=== PATIENT | female | born 1940 | race African-American/Black ===

== ENCOUNTER 2017-01-28 16:42 | Observation (INO) | payer OTHER ==
[2017-01-28] MEDS ORDERED: SODIUM CHLORIDE 500 ML IV STA (17:08)
--- NOTE | 2017-01-28 17:26 | PDOC ---
History of Present Illness <Ebenezer May - Last Filed: 01/28/17 17:21> <Orly Penny - Last Filed: 01/28/17 18:24> <Ame Rico - Last Filed: 01/28/17 19:46> <Mady Wiseman - Last Filed: 01/28/17 19:52> - General Chief Complaint: Syncope/Near Syncope Stated Complaint: Syncope/Near Syncope Time Seen by Provider: 01/28/17 16:52 - History of Present Illness Initial Comments: 01/28/17 18:24 Patient is a 76 year old female with significant medical hx of IDDM, HTN, HLD, and GERD who is presenting to the ED for syncope from today. The patient was on the bus when she lost consciousness and woke up to paramedics evaluating her. Patient states that she was still on the bus when she came back into consciousness. The patient reports she felt fine this morning and denies any recent illness, chest pain, shortness of breath, lightheadedness, neck pain, back pain, headache, vision changes, or dizziness. The patient endorses three other similar episodes within the past six years. Her last syncopal episode occurred two months ago while walking in [employer]. She states that she was walking and the next thing she knew, the ambulance was there. Denies any fever, chills, nausea, vomiting, diarrhea, dysuria, melena/bpr or any other complaints. PMD: Jaime Lopez MD Vice President Financial: Beny Baptiste MD (Olry Penny) Past History - Past Medical History Diabetes: Yes (IDDM insulin pump) GI Disorders: Yes (GERD) HTN: Yes Hypercholesterolemia: Yes Suicide Attempt (Hx): No - Psycho/Social/Smoking Cessation Hx Anxiety: No Suicidal Ideation: No Smoking Status: No Smoking History: Former smoker Have you smoked in the past 12 months: No Number of Cigarettes Smoked Daily: 0 Information on smoking cessation initiated: No Hx Alcohol Use: No Drug/Substance Use Hx: No Substance Use Type: None <LaloEbenezer - Last Filed: 01/28/17 17:21> <Orly Penny - Last Filed: 01/28/17 18:24> <Ame Rico - Last Filed: 01/28/17 19:46> <Mady Wiseman - Last Filed: 01/28/17 19:52> - Past Medical History Allergies/Adverse Reactions: Allergies Allergy/AdvReac Type Severity Reaction Status Date / Time No Known Allergies Allergy Verified 01/28/17 16:56 Home Medications: Ambulatory Orders Esomeprazole Mag Trihydrate [Nexium] 40 mg PO DAILY 05/02/12 Rosuvastatin Calcium [Crestor] 5 mg PO DAILY 05/02/12 Aspirin [ASA -] 81 mg PO DAILY #0 tab.chew 09/29/12 Insulin Pump Cartridge [Cartridge Stamped] 1 each SQ ASDIR 10/03/14 Valsartan/Hydrochlorothiazide [Valsartan-Hctz 160-12.5 mg Tab] 1 each PO DAILY 01/28/17 Cardiac Specific PMH - Complaint Specific PMHX Angina: No Cardiac Arrhythmia: No GERD: No Peripheral Vascular Disease: No <Ebenezer Mya - Last Filed: 01/28/17 17:21> Review of Systems <Ebenezer May - Last Filed: 01/28/17 17:21> <Orly Penny - Last Filed: 01/28/17 18:24> <Ame Rico - Last Filed: 01/28/17 19:46> <Mady Wiseman - Last Filed: 01/28/17 19:52> - Review of Systems Comments:: 01/28/17 18:24 "CONSTITUTIONAL: No reported: Fever, Chills, Diaphoresis, Generalized Weakness, Malaise, Loss of Appetite HEENT: No reported: Rhinorrhea, Nasal Congestion, Throat Pain, Throat Swelling, Difficulty Swallowing, Mouth Swelling, Ear Pain, Eye Pain, Visual Changes CARDIOVASCULAR: Reported: Syncope No reported: Chest Pain, Palpitations, Irregular Heart Rate, Lightheadedness, Peripheral Edema RESPIRATORY: No reported: Cough, Shortness of Breath, SOB with Exertion, Orthopnea, Wheezing , Stridor, Hemoptysis GASTROINTESTINAL: No reported: Abdominal pain, Abdominal Distension, Nausea, Vomiting, Diarrhea, Constipation, Melena, Hematochezia GENITOURINARY: No reported: Dysuria, Frequency, Urgency, Hesitancy, Flank Pain, Genital Pain MUSCULOSKELETAL: No reported: Myalgia, Arthralgia, Joint Swelling, Back pain, Neck Pain SKIN: No reported: Rash, Itching, Pallor HEMEATOLOGIC/IMMUNOLOGIC: No reported: Easy Bleeding, Easy Bruising, Lymphadenopathy, Frequent infections ENDOCRINE: No reported: Unexplained Weight Gain, Unexplained Weight Loss, Heat Intolerance , Cold Intolerance NEUROLOGIC: No reported: Headache, Focal Weakness, Paresthesias, Vertigo, Lightheadedness, Unsteady Gait, Seizure, Mental Status Changes, Incontinence PSYCHIATRIC: No reported: Anxiety, Depression (ZohaibOrly) *Physical Exam <Ebenezer May - Last Filed: 01/28/17 17:21> <Orly Penny - Last Filed: 01/28/17 18:24> <Ame Rico - Last Filed: 01/28/17 19:46> <Mady Wiseman - Last Filed: 01/28/17 19:52> - Vital Signs Last Vital Signs Temp Pulse Resp BP Pulse Ox 98.5 F 80 17 120/75 100 01/28/17 19:37 01/28/17 19:37 01/28/17 19:37 01/28/17 19:37 01/28/17 19:37 - Physical Exam Comments: 01/28/17 18:33 GENERAL: The patient is awake, alert, and fully oriented, Nontoxic - in no acute distress. HEAD: Normocephalic, atraumatic. EYES: extraocular movements intact, sclera anicteric, conjunctiva clear. ENT: Normal voice, Moist mucous membranes. NECK: Normal range of motion, supple LUNGS: Breath sounds equal, clear to auscultation bilaterally. No wheezes, no rhonchi, no rales. HEART: Regular rate and rhythm, without murmur, rub or gallop. ABDOMEN: RLQ insulin pump. Soft, nontender, normoactive bowel sounds. No guarding, no rebound.No CVA tenderness EXTREMITIES: Normal range of motion, no edema. No clubbing or cyanosis. No cords , erythema, or tenderness. NEUROLOGICAL: No facial assymetry, Normal speech, PSYCH: Normal mood, normal affect. SKIN: Warm, Dry, normal turgor. (Orly Penny) Heart Score/ECG Review <Ebenezer May - Last Filed: 01/28/17 17:21> <Orly Penny - Last Filed: 01/28/17 18:24> <Ame Rico - Last Filed: 01/28/17 19:46> <Mady Wiseman - Last Filed: 01/28/17 19:52> - ECG Impressions Comment:: 01/28/17 17:26 Twelve-lead EKG was performed and reviewed by me. There is normal sinus rhythm with a normal rate. Rate of 88 The axis is normal. The intervals are normal. There is normal R wave progression twi in v3-v5 no significant changes compare with ekg in 2015 (Ebenezer May) ED Treatment Course <Ebenezer May - Last Filed: 01/28/17 17:21> <ZohaibOrly - Last Filed: 01/28/17 18:24> - LABORATORY CBC & Chemistry Diagram: 01/28/17 18:03 01/28/17 18:03 <Ame Rico - Last Filed: 01/28/17 19:46> - LABORATORY CBC & Chemistry Diagram: 01/28/17 18:03 01/28/17 18:03 <Mady Wiseman - Last Filed: 01/28/17 19:52> - ADDITIONAL ORDERS Additional order review: Laboratory Results 01/28/17 01/28/17 18:03 18:03 WBC 6.1 RBC 4.67 Hgb 13.1 Hct 40.0 MCV 85.7 MCHC 32.7 RDW 15.6 D Plt Count 200 D MPV 9.4 D Neutrophils % 64.1 Lymphocytes % 26.7 D Monocytes % 6.2 Eosinophils % 2.5 Basophils % 0.5 Sodium 145 Potassium 3.9 Chloride 106 Carbon Dioxide 29 Anion Gap 10 BUN 25 H Creatinine 1.4 H Creat Clearance w eGFR 36.46 Random Glucose 95 D Calcium 8.9 Total Bilirubin 0.4 AST 74 H D ALT 65 D Alkaline Phosphatase 99 Creatine Kinase 182 Troponin I < 0.02 Total Protein 7.1 Albumin 3.4 01/28/17 18:03 RBC 4.67 MCV 85.7 MCHC 32.7 RDW 15.6 D MPV 9.4 D Neutrophils % 64.1 Lymphocytes % 26.7 D Monocytes % 6.2 Eosinophils % 2.5 Basophils % 0.5 - RADIOLOGY Radiology Studies Ordered: Category Date Time Status HEAD CT WITHOUT CONTRAST [CT] Stat CT Scan 01/28/17 19:44 Ordered Radiograph Interpretation: 01/28/17 18:34 Chest X-Ray Impression: No significant interval change or acute lung disease is present. Reported By: Bandar Saez MD (Orly Penny) - Medications Given in the ED: ED Medications Discontinued Medications Generic Name Dose Route Start Last Admin Trade Name Jeremias PRN Reason Stop Dose Admin Sodium Chloride 500 mls @ 500 mls/hr 01/28/17 17:08 01/28/17 17:18 Normal Saline - IV 01/28/17 18:07 500 mls/hr ASDIR STA Administration Medical Decision Making <Ebenezer May - Last Filed: 01/28/17 17:21> <Orly Penny - Last Filed: 01/28/17 18:24> <Ame Rico - Last Filed: 01/28/17 19:46> <Mady Wiseman - Last Filed: 01/28/17 19:52> - Medical Decision Making 01/28/17 17:21 76y F hx of HTN, DM, GERD, and hyperlipidemia, syncope presents with complaint of syncope. The pt states she was on the bus, and does not remember anything until EMS got there. Pt has no complaints otherwise including cp, sob, dizziness , n/v, palpitations, abd pain, neck pain, back pain. pts exam is unremarkable besdie her insulin pump in Q. Per EMS the pt was hypotensive upon their arival, bgm was normal, she received fluids with improvement. Differential for the patient's syncope includes but not limited to vasovagal episode, pulmonary embolism, subarachnoid hemorrhage, arrythmia, AAA/ dissection. Based on the patient's lack of chest pain, shortness of breath, doubt pulmonary embolism. Lack of severe headache doubt subarachnoid hemorrhage. Lack of abdominal pain and pulsatile abdominal mass/neurologic symptoms doubt AAA/dissection. will check cbc to r/o anemia cmp to r/o electrolyte imbalance trop to r/o acs ekg to r/o arrhythmia cxr to r/o acute pulmonary disease pt on monitor technician for evaluation of arrytmia (Ebenezer May) 01/28/17 19:47 Dr. Cunningham was paged and notified via phone service. (Ame Rico) 01/28/17 19:49 Pt comes with syncopal episode on a bus today. I received signout. Pt's PMD is John. She will be admitted to Dr. Cunningham. He is aware of the admission to med/surg. He agrees with me that pt ought to have a CT head, however, patient is refusing a head CT at this time. Labs are normal. BUN CR slight minimally elevated than usual. (Mady Wiseman) *DC/Admit/Observation/Transfer <Ebenezer May - Last Filed: 01/28/17 17:21> <Orly Penny - Last Filed: 01/28/17 18:24> <Ame Rico - Last Filed: 01/28/17 19:46> - Discharge Dispostion Admit: Yes <Mady Wiseman - Last Filed: 01/28/17 19:52> Diagnosis at time of Disposition: Syncope - Discharge Dispostion Condition at time of disposition: Guarded - Referrals Referrals: Jaime Lopez MD [Primary Care Provider] - - Patient Instructions Printed Discharge Instructions: DI for Syncope in Adults (Fainting) - Attestations Scribe Attestion: 01/28/17 18:33 Documentation prepared by Orly Penny, acting as biomedical service engineer for Ebenezer May MD. (Orly Penny)
[2017-01-28 18:32] LABS: BASOPHIL 0.5 % (0-2.0); EOSINOPHIL 2.5 % (0-4.5); MCHC 32.7 g/dl (32.0-36.0); MEAN CELL VOLUME 85.7 fl (80-96); MEAN PLT VOLUME 9.4 fl (7.5-11.1); NEUTROPHILS 64.1 % (42.8-82.8); PLATELET COUNT 200 K/MM3 (134-434); RDW 15.6 % (11.6-15.6); WHITE BLOOD COUNT 6.1 K/mm3 (4.0-10.0)
[2017-01-28 19:14] LABS: ALBUMIN 3.4 g/dl (3.4-5.0); ALK PHOS 99 U/L (45-117); ANION GAP 10 (8-16); BILIRUBIN,TOTAL 0.4 mg/dL (0.2-1.0); CALCIUM 8.9 mg/dL (8.5-10.1); CO2 29 mmol/L (21-32); CREATININE 1.4 mg/dL (0.55-1.02); GLUCOSE,RANDOM 95 mg/dL (74-106); SGOT/AST 74 U/L (15-37); SGPT/ALT 65 U/L (12-78); TOT PROT 7.1 g/dl (6.4-8.2); TROPONIN I < 0.02 ng/ml (0.00-0.05)
[2017-01-28] MEDS ORDERED: ACETAMINOPHEN 325 MG TABLET (FP) PO PRN (23:05)
[2017-01-28 23:34] VITALS: BMI 27.8
[2017-01-29 09:54] LABS: URINE APPEARANCE SLCLOUDY; URINE BILIRUBIN NEGATIVE (NEGATIVE); URINE BLOOD NEGATIVE (NEGATIVE); URINE COLOR YELLOW; URINE GLUCOSE (UA) NEGATIVE (NEGATIVE); URINE KETONE NEGATIVE (NEGATIVE); URINE NITRITE NEGATIVE (NEGATIVE); URINE PROTEIN NEGATIVE (NEGATIVE); URINE UROBILINOGEN NEGATIVE E.U./dl (0.2-1.0)
[2017-01-29 09:56] LABS: URINE LEUK ESTERASE 3+ (NEGATIVE)
[2017-01-29 09:58] LABS: URINE BACTERIA MODERATE /hpf (NONE SEEN); URINE MUCUS RARE; URINE RBC <1 /hpf (0-3); URINE WBC 24 /hpf (3-5)
--- NOTE | 2017-01-29 10:10 | CON.CARD ---
Consult Consult Specialty:: Cardiology Referred by:: Dr Cunningham Reason for Consultation:: syncope - History of Present Illness Chief Complaint: syncope History of Present Illness: 76 year old woman with a history of IDDM, HTN, HLD, and GERD, syncope x 3 in the past seen by Dr Baptiste in the past with recent normal echo, stress test and carotid sonogram in his office who was admitted 01/28/17 after syncope while sitting on the bus. Does not remember a prodrome. No chest pain, orthopnea, pnd or edema. No palpitations or dizziness. Baseline exercise tolerance is good. 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: Alzheimer's, CVA, Dementia, Migraine, Multiple Sclerosis, Peripheral Neuropathy, Parkinson's, Seizure, Syncope, TIA, Vertigo, Other Cardio/Vascular: Yes: HTN Pulmonary: No: Asthma, Bronchitis, Cancer, COPD, O2 Dependent, Pneumonia, Previously Intubated, Pulmonary Embolus, Pulmonary Fibrosis, Sleep Apnea, Other Gastrointestinal: Yes: GERD Endocrine: Yes: Diabetes Mellitus - Past Surgical History Past Surgical History: Yes: None - Alcohol/Substance Use Hx Alcohol Use: No History of Substance Use: reports: None - Smoking History Smoking history: Former smoker Have you smoked in the past 12 months: No Aproximately how many cigarettes per day: 0 Home Medications - Allergies Allergies/Adverse Reactions: Allergies Allergy/AdvReac Type Severity Reaction Status Date / Time No Known Allergies Allergy Verified 01/28/17 16:56 - Home Medications Home Medications: Ambulatory Orders Esomeprazole Mag Trihydrate [Nexium] 40 mg PO DAILY 05/02/12 Rosuvastatin Calcium [Crestor] 5 mg PO DAILY 05/02/12 Aspirin [ASA -] 81 mg PO DAILY #0 tab.chew 09/29/12 Insulin Pump Cartridge [Cartridge Stamped] 1 each SQ ASDIR 10/03/14 Valsartan/Hydrochlorothiazide [Valsartan-Hctz 160-12.5 mg Tab] 1 each PO DAILY 01/28/17 Family Disease History - Family Disease History Family History: Denies Review of Systems - Review of Systems Constitutional: reports: No Symptoms Eyes: reports: No Symptoms HENT: reports: No Symptoms Neck: reports: No Symptoms Respiratory: reports: No Symptoms Gastrointestinal: reports: No Symptoms Genitourinary: reports: No Symptoms - Risk Factors Known Risk Factors: Yes: Diabetes Mellitus, Hypercholesterolemia, Hypertension Vital Signs: Vital Signs Temperature 98.4 F 01/29/17 06:29 Pulse Rate 66 01/29/17 06:29 Respiratory Rate 20 01/29/17 06:29 Blood Pressure 133/66 01/29/17 06:29 O2 Sat by Pulse Oximetry (%) 100 01/28/17 19:37 Constitutional: Yes: Well Nourished, No Distress Eyes: Yes: WNL HENT: Yes: WNL Neck: Yes: WNL, Supple Respiratory: Yes: WNL Gastrointestinal: Yes: WNL, Normal Bowel Sounds, Soft Renal/: Yes: WNL Cardiovascular: Yes: Regular Rate and Rhythm JVD: No Carotid Bruit: No PMI: Non-Displaced Heart Sounds: Yes: S1, S2 Murmur: No: Systolic Murmur, Diastolic Murmur, Grade 1, Grade 2, Grade 3, Grade 4, Grade 5, Grade 6 Musculoskeletal: Yes: WNL Extremities: Yes: WNL Edema: No Peripheral Pulses WNL: Yes Integumentary: Yes: WNL Neurological: Yes: Alert, Oriented ...Motor Strength: WNL - Other Data Echo: Other Imaging - Results Chest X-ray: Report Reviewed (dakota, asao) EKG: Image Reviewed (nsr nssttw changes in the anterolateral leads.) Problem List - Problems (1) Syncope Assessment/Plan: Unclear etiology. May be vagal but lack of prodrome is concerning. Told normal workup by Dr Baptiste's office. check orthostatic bp get reports from Dr Baptiste's office. Would need outpatient tilt table testing and likely needs Implantable loop recorder as outpatient. if not orthostatic and labs normal can follow as outpatient. If going home would temporarily hold valsartan as she is at high risk of orthostasis. Code(s): R55 - SYNCOPE AND COLLAPSE Qualifiers: Syncope type: vasovagal syncope Qualified Code(s): R55 - Syncope and collapse (2) Bradycardia Assessment/Plan: mild sinus bradycardia, now resolved. Code(s): R00.1 - BRADYCARDIA, UNSPECIFIED
[2017-01-29] MEDS: PANTOPRAZOLE 40 MG TABLET (FP) PO SCH (11:01)
[2017-01-29] MEDS: HYDROCHLOROTHIAZIDE 12.5 MG CAPSULE (FP) PO SCH (11:01)
[2017-01-29] MEDS: VALSARTAN 160 MG TABLET (UD) PO SCH (11:01)
--- NOTE | 2017-01-29 11:16 | EKG ---
Test Reason : Blood Pressure : / mmHG Vent. Rate : 088 BPM Atrial Rate : 088 BPM P-R Int : 130 ms QRS Dur : 080 ms QT Int : 368 ms P-R-T Axes : 054 061 099 degrees QTc Int : 445 ms NORMAL SINUS RHYTHM T WAVE ABNORMALITY, CONSIDER ANTEROLATERAL ISCHEMIA ABNORMAL ECG WHEN COMPARED WITH ECG OF 03-OCT-2014 20:26, INVERTED T WAVES HAVE REPLACED NONSPECIFIC T WAVE ABNORMALITY IN LATERAL LEADS Confirmed by MARGARET HAGEN MD ([id number]) on 01/29/2017 11:16:31 AM Referred By: Confirmed By:MARGARET HAGEN MD
[2017-01-29 11:23] LABS: MCH 28.5 pg (25.7-33.7); MCHC 33.4 g/dl (32.0-36.0); MEAN CELL VOLUME 85.3 fl (80-96); MEAN PLT VOLUME 9.3 fl (7.5-11.1); PLATELET COUNT 183 K/MM3 (134-434); RDW 15.4 % (11.6-15.6); WHITE BLOOD COUNT 6.9 K/mm3 (4.0-10.0)
[2017-01-29 11:55] LABS: ALBUMIN 3.4 g/dl (3.4-5.0); BILIRUBIN,TOTAL 0.4 mg/dL (0.2-1.0); CALCIUM 8.9 mg/dL (8.5-10.1); COCKROFT - GAULT 48.246; CREATININE 1.1 mg/dL (0.55-1.02); TOT PROT 6.9 g/dl (6.4-8.2)
[2017-01-29] MEDS ORDERED: CEFTRIAXONE 100 ML IVPB SCH (15:00)
--- NOTE | 2017-01-29 15:29 | CON.NEURO ---
Consult Referred by:: Dr. Letitia Cunningham Reason for Consultation:: Multiple Syncope - History of Present Illness Chief Complaint: " I fainted on the bus" History of Present Illness: Patient is a 76 year old female with significant medical hx of IDDM, HTN, HLD, and GERD who is presented to the ED after she fainted on the bus on day of admission. She reports she has had 4 epuisodes of syncope, first one on 09/26/12 , last one preceeding this admission and penultimate one in 12/17. Each episode is not preceeded by any prodrome or warning signs, she suddenly looses consciousness, does not know for how long but has been told it does not last for more than 3 minutes. There is no confusion/disorientation following the event. On two occasions syncope ocurred in warm weather but not the othe5r two. The patient chest pain, shortness of breath, lightheadedness, neck pain, back pain, headache, vision changes, or dizziness associated with syncopal events. There is no history of head trauma, headaches, palpitations. 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: Alzheimer's, CVA, Dementia, Migraine, Multiple Sclerosis, Peripheral Neuropathy, Parkinson's, Seizure, Syncope, TIA, Vertigo, Other Cardio/Vascular: Yes: HTN Pulmonary: No: Asthma, Bronchitis, Cancer, COPD, O2 Dependent, Pneumonia, Previously Intubated, Pulmonary Embolus, Pulmonary Fibrosis, Sleep Apnea, Other Gastrointestinal: Yes: GERD Endocrine: Yes: Diabetes Mellitus - Past Surgical History Past Surgical History: Yes: None - Alcohol/Substance Use Hx Alcohol Use: No History of Substance Use: reports: None - Smoking History Smoking history: Former smoker Have you smoked in the past 12 months: No Aproximately how many cigarettes per day: 0 Home Medications - Allergies Allergies/Adverse Reactions: Allergies Allergy/AdvReac Type Severity Reaction Status Date / Time No Known Allergies Allergy Verified 01/28/17 16:56 - Home Medications Home Medications: Ambulatory Orders Esomeprazole Mag Trihydrate [Nexium] 40 mg PO DAILY 05/02/12 Rosuvastatin Calcium [Crestor] 5 mg PO DAILY 05/02/12 Aspirin [ASA -] 81 mg PO DAILY #0 tab.chew 09/29/12 Insulin Pump Cartridge [Cartridge Stamped] 1 each SQ ASDIR 10/03/14 Valsartan/Hydrochlorothiazide [Valsartan-Hctz 160-12.5 mg Tab] 1 each PO DAILY 01/28/17 Physical Exam-Neuro Vital Signs: Vital Signs Temperature 98.4 F 01/29/17 06:29 Pulse Rate 65 01/29/17 11:00 Respiratory Rate 20 01/29/17 06:29 Blood Pressure 132/78 01/29/17 11:00 O2 Sat by Pulse Oximetry (%) 100 01/28/17 19:37 Labs: CBC, BMP 01/29/17 10:00 01/29/17 10:00 - Neuro Exam Level Of Consciousness: No: Alert, Oriented to Person, Oriented to Place, Oriented to Time, Comatose, Obtunded, Sedated, Stuporous Dominant Hand: Right Cranial Nerves II-XII Intact: Yes DTR's: 0 Left Achilles, 0 Right Achilles, 1+ Left Bicep, 1+ Right Bicep, 1+ Left Tricep, 1+ Right Tricep, 1+ Left Brachioradialis, 1+ Right Brachioradialis NIH Stroke Scale - Total Score NIH Stroke Scale Score: 0 Assessment/Plan Syncope-Pt appears to have syncope, likely neurocardiogenic syncope given the character of episodes, in the diff. is vasovagal syncope. No evidence of seizures. Suggest: Cardiology f/u for tilt-table test. Kindly have patient f/u with me as an outpt. [phone] Thank you, Sebastian Diego
--- NOTE | 2017-01-29 15:55 | CONSULT ---
Consult Consult Specialty:: infectious diseases Referred by:: Reason for Consultation:: rsyncope,uti - History of Present Illness Chief Complaint: passing out History of Present Illness: 76 year old female with significant medical hx of IDDM, HTN, HLD, and GERD who is presented to the ED after she fainted on the bus on day of admission. she has had 4 epuisodes of syncope, first one on 09/26/12, last one preceeding this admission and penultimate one in 12/17. 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: Alzheimer's, CVA, Dementia, Migraine, Multiple Sclerosis, Peripheral Neuropathy, Parkinson's, Seizure, Syncope, TIA, Vertigo, Other Cardio/Vascular: Yes: HTN Pulmonary: No: Asthma, Bronchitis, Cancer, COPD, O2 Dependent, Pneumonia, Previously Intubated, Pulmonary Embolus, Pulmonary Fibrosis, Sleep Apnea, Other Gastrointestinal: Yes: GERD Endocrine: Yes: Diabetes Mellitus - Past Surgical History Past Surgical History: Yes: None - Alcohol/Substance Use Hx Alcohol Use: No History of Substance Use: reports: None - Smoking History Smoking history: Former smoker Have you smoked in the past 12 months: No Aproximately how many cigarettes per day: 0 Home Medications - Allergies Allergies/Adverse Reactions: Allergies Allergy/AdvReac Type Severity Reaction Status Date / Time No Known Allergies Allergy Verified 01/28/17 16:56 - Home Medications Home Medications: Ambulatory Orders Esomeprazole Mag Trihydrate [Nexium] 40 mg PO DAILY 05/02/12 Rosuvastatin Calcium [Crestor] 5 mg PO DAILY 05/02/12 Aspirin [ASA -] 81 mg PO DAILY #0 tab.chew 09/29/12 Insulin Pump Cartridge [Cartridge Stamped] 1 each SQ ASDIR 10/03/14 Valsartan/Hydrochlorothiazide [Valsartan-Hctz 160-12.5 mg Tab] 1 each PO DAILY 01/28/17 Review of Systems - Review of Systems Constitutional: reports: No Symptoms Eyes: reports: No Symptoms HENT: reports: No Symptoms Neck: reports: No Symptoms Cardiovascular: reports: No Symptoms Respiratory: reports: No Symptoms Genitourinary: reports: No Symptoms Breasts: reports: No Symptoms Reported Musculoskeletal: reports: No Symptoms Neurological: reports: Change in LOC, Syncope Endocrine: reports: No Symptoms Hematology/Lymphatic: reports: No Symptoms Psychiatric: reports: No Symptoms Physical Exam Vital Signs: Vital Signs Temperature 98.4 F 01/29/17 06:29 Pulse Rate 76 01/29/17 15:27 Respiratory Rate 20 01/29/17 15:27 Blood Pressure 132/83 01/29/17 15:27 O2 Sat by Pulse Oximetry (%) 100 01/29/17 15:27 Constitutional: Yes: No Distress, Calm, Other (dishevelled) Eyes: Yes: Conjunctiva Clear HENT: Yes: Atraumatic, Normocephalic Neck: Yes: Supple Cardiovascular: Yes: Regular Rate and Rhythm Respiratory: Yes: Regular, CTA Bilaterally Gastrointestinal: Yes: Normal Bowel Sounds, Soft Musculoskeletal: Yes: WNL Extremities: Yes: WNL Neurological: Yes: Alert, Oriented Psychiatric: Yes: Alert, Oriented Labs: CBC, BMP 01/29/17 10:00 01/29/17 10:00 Imaging - Results Chest X-ray: Report Reviewed, Image Reviewed Other: Report Reviewed, Image Reviewed Assessment/Plan Problem List - Problems (1) Syncope Code(s): R55 - SYNCOPE AND COLLAPSE Qualifiers: Syncope type: vasovagal syncope Qualified Code(s): R55 - Syncope and collapse (2) Bradycardia Code(s): R00.1 - BRADYCARDIA, UNSPECIFIED it seems when patient had come here she had bradycardia now it is normal the only thing is if the patient is getting uti plan will stop abx urine for c and s rest continue as per primary
--- NOTE | 2017-01-29 16:58 | HP ---
Admitting History and Physical - Primary Care Physician PCP: Anastasiia Jara - Admission Chief Complaint: SYNCOPE/DIZZINESS/UTI History of Present Illness: Patient is a 76 year old female with significant medical hx of IDDM, HTN, HLD, and GERD who is presenting to the ED for syncope from today. The patient was on the bus when she lost consciousness and woke up to paramedics evaluating her. Patient states that she was still on the bus when she came back into consciousness. The patient reports she felt fine this morning and denies any recent illness, chest pain, shortness of breath, lightheadedness, neck pain, back pain, headache, vision changes, or dizziness. The patient endorses three other similar episodes within the past six years. Her last syncopal episode occurred two months ago while walking in [employer]. She states that she was walking and the next thing she knew, the ambulance was there. Denies any fever, chills, nausea, vomiting, diarrhea, dysuria, melena/bpr or any other complaints. 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: Alzheimer's, CVA, Dementia, Migraine, Multiple Sclerosis, Peripheral Neuropathy, Parkinson's, Seizure, Syncope, TIA, Vertigo, Other Cardiovascular: Yes: HTN Pulmonary: No: Asthma, Bronchitis, Cancer, COPD, O2 Dependent, Pneumonia, Previously Intubated, Pulmonary Embolus, Pulmonary Fibrosis, Sleep Apnea, Other Gastrointestinal: Yes: GERD Endocrine: Yes: Diabetes Mellitus - Past Surgical History Past Surgical History: Yes: None - Smoking History Smoking history: Former smoker Have you smoked in the past 12 months: No Aproximately how many cigarettes per day: 0 - Alcohol/Substance Use Hx Alcohol Use: No History of Substance Use: reports: None Home Medications - Allergies Allergies/Adverse Reactions: Allergies Allergy/AdvReac Type Severity Reaction Status Date / Time No Known Allergies Allergy Verified 01/28/17 16:56 - Home Medications Home Medications: Ambulatory Orders Esomeprazole Mag Trihydrate [Nexium] 40 mg PO DAILY 05/02/12 Rosuvastatin Calcium [Crestor] 5 mg PO DAILY 05/02/12 Aspirin [ASA -] 81 mg PO DAILY #0 tab.chew 09/29/12 Insulin Pump Cartridge [Cartridge Stamped] 1 each SQ ASDIR 10/03/14 Valsartan/Hydrochlorothiazide [Valsartan-Hctz 160-12.5 mg Tab] 1 each PO DAILY 01/28/17 Review of Systems - Review of Systems Constitutional: reports: Weakness Eyes: reports: No Symptoms HENT: reports: No Symptoms Neck: reports: No Symptoms Cardiovascular: reports: No Symptoms Respiratory: reports: No Symptoms Gastrointestinal: reports: No Symptoms Genitourinary: reports: No Symptoms Musculoskeletal: reports: No Symptoms Integumentary: reports: No Symptoms Neurological: reports: Other Endocrine: reports: No Symptoms Hematology/Lymphatic: reports: No Symptoms Psychiatric: reports: No Symptoms Physical Examination Vital Signs: Vital Signs Temperature 98.4 F 01/29/17 06:29 Pulse Rate 76 01/29/17 15:27 Respiratory Rate 20 01/29/17 15:27 Blood Pressure 132/83 01/29/17 15:27 O2 Sat by Pulse Oximetry (%) 100 01/29/17 15:27 Constitutional: Yes: Mild Distress Eyes: Yes: WNL HENT: Yes: WNL Neck: Yes: WNL Cardiovascular: Yes: Bradycardia Respiratory: Yes: WNL Gastrointestinal: Yes: WNL Musculoskeletal: Yes: WNL Extremities: Yes: WNL Edema: No Peripheral Pulses WNL: Yes Integumentary: Yes: WNL Wound/Incision: Yes: Clean/Dry Neurological: Yes: Unsteady Gait ...Motor Strength: LLE, RLE Psychiatric: Yes: Other Labs: CBC, BMP 01/29/17 10:00 01/29/17 10:00 Problem List - Problems (1) Syncope Code(s): R55 - SYNCOPE AND COLLAPSE Qualifiers: Syncope type: vasovagal syncope Qualified Code(s): R55 - Syncope and collapse (2) Bradycardia Code(s): R00.1 - BRADYCARDIA, UNSPECIFIED Assessment/Plan NEUROLOGY AND CARDIOLOGY EVAL BRADYCARDIA? UTI START IV ABX ID F/U IVF PT EVAL SNF
--- NOTE | 2017-01-29 19:08 | CONSULT ---
Consult Consult Specialty:: Nephrology Reason for Consultation:: azotemia - History of Present Illness Chief Complaint: presented with syncope History of Present Illness: Pt is a 76 year old female with pmhx of DM, HTN, chol and GERD who presents to the ER with syncope. She does not remember the episode. She was found to have elevated creatinine so I was called to evaluate her. She denies history of CKD. She denies dysuria or hematuria. She is awake and alert. She says she has food and felt that she drank enough fluid yesterday. She says she did not feel dehydrated. She denies fevers or chills. She did have syncope in the past. - History Source History Provided By: Patient, Medical Record - Past Medical History Cardio/Vascular: Yes: HTN, Hyperlipdemia Gastrointestinal: Yes: GERD Endocrine: Yes: Diabetes Mellitus - Past Surgical History Past Surgical History: Yes: None - Alcohol/Substance Use Hx Alcohol Use: No History of Substance Use: reports: None - Smoking History Smoking history: Former smoker Have you smoked in the past 12 months: No Aproximately how many cigarettes per day: 0 Home Medications - Allergies Allergies/Adverse Reactions: Allergies Allergy/AdvReac Type Severity Reaction Status Date / Time No Known Allergies Allergy Verified 01/28/17 16:56 - Home Medications Home Medications: Ambulatory Orders Esomeprazole Mag Trihydrate [Nexium] 40 mg PO DAILY 05/02/12 Rosuvastatin Calcium [Crestor] 5 mg PO DAILY 05/02/12 Aspirin [ASA -] 81 mg PO DAILY #0 tab.chew 09/29/12 Insulin Pump Cartridge [Cartridge Stamped] 1 each SQ ASDIR 10/03/14 Valsartan/Hydrochlorothiazide [Valsartan-Hctz 160-12.5 mg Tab] 1 each PO DAILY 01/28/17 Family Disease History - Family Disease History Family History: Denies Review of Systems - Review of Systems Constitutional: reports: No Symptoms Eyes: reports: No Symptoms HENT: reports: No Symptoms Neck: reports: No Symptoms Cardiovascular: reports: No Symptoms Respiratory: reports: No Symptoms Gastrointestinal: reports: No Symptoms Genitourinary: reports: No Symptoms Musculoskeletal: reports: No Symptoms Integumentary: reports: No Symptoms Neurological: reports: Change in LOC, Syncope Endocrine: reports: No Symptoms Hematology/Lymphatic: reports: No Symptoms Psychiatric: reports: No Symptoms Physical Exam Vital Signs: Vital Signs Temperature 98.4 F 01/29/17 06:29 Pulse Rate 76 01/29/17 15:27 Respiratory Rate 20 01/29/17 15:27 Blood Pressure 132/83 01/29/17 15:27 O2 Sat by Pulse Oximetry (%) 100 01/29/17 15:27 Constitutional: Yes: Calm Eyes: Yes: Conjunctiva Clear Neck: Yes: Supple Cardiovascular: Yes: S1, S2 Gastrointestinal: Yes: Normal Bowel Sounds, Soft Renal/: Yes: WNL. No: CVA Tenderness - Left, CVA Tenderness - Right Musculoskeletal: Yes: WNL Edema: No Neurological: Yes: Oriented Psychiatric: Yes: Oriented Labs: CBC, BMP 01/29/17 10:00 01/29/17 10:00 Laboratory Tests 01/28/17 01/28/17 01/29/17 18:03 18:03 06:00 Hgb 13.1 Sodium Potassium Chloride Carbon Dioxide Anion Gap 10 BUN 25 H Creatinine 1.4 H Random Glucose 95 D Urine Color Yellow Urine Appearance Slcloudy Urine pH 6.0 Ur Specific [place] 1.010 Urine Protein Negative Urine Glucose (UA) Negative Urine Ketones Negative Urine Blood Negative Urine Nitrite Negative Urine Bilirubin Negative Urine Urobilinogen Negative Ur Leukocyte Esterase 3+ H Urine RBC <1 Urine WBC 24 Urine Bacteria Moderate Urine Mucus Rare 01/29/17 01/29/17 10:00 10:00 Hgb 12.7 Sodium 141 Potassium 3.9 Chloride 104 Carbon Dioxide 27 Anion Gap 10 BUN 19 H D Creatinine 1.1 H D Random Glucose Urine Color Urine Appearance Urine pH Ur Specific [place] Urine Protein Urine Glucose (UA) Urine Ketones Urine Blood Urine Nitrite Urine Bilirubin Urine Urobilinogen Ur Leukocyte Esterase Urine RBC Urine WBC Urine Bacteria Urine Mucus Imaging - Results Chest X-ray: Report Reviewed Problem List - Problems (1) Syncope Code(s): R55 - SYNCOPE AND COLLAPSE Qualifiers: Syncope type: vasovagal syncope Qualified Code(s): R55 - Syncope and collapse (2) Azotemia Code(s): R79.89 - OTHER SPECIFIED ABNORMAL FINDINGS OF BLOOD CHEMISTRY (3) Hypertension Code(s): I10 - ESSENTIAL (PRIMARY) HYPERTENSION Assessment/Plan Current Medications Generic Name Dose Route Start Last Admin Trade Name Freq PRN Reason Stop Dose Admin Acetaminophen 650 mg 01/28/17 23:05 Tylenol - PO Q6H PRN FEVER OR PAIN Hydrochlorothiazide 12.5 mg 01/29/17 10:00 01/29/17 11:01 Hctz - PO 12.5 mg DAILY MACIEL Administration Pantoprazole Sodium 40 mg 01/29/17 10:00 01/29/17 11:01 Protonix - PO 40 mg DAILY MACIEL Administration Rosuvastatin Calcium 5 mg 01/29/17 22:00 Crestor - PO HS MACIEL Valsartan 160 mg 01/29/17 10:00 01/29/17 11:01 Diovan - PO 160 mg DAILY MACIEL Administration Impression 1. azotemia improving 2. syncope 3. HTN 4. hyperlipidemia Plan - renal function is improved - repeat ua - check renal ultrasound - repeat labs in am - will need syncope workup - blood pressure was initially low - consider holding thiazide for now - will follow Dr Smith
[2017-01-29] MEDS: ROSUVASTATIN CA 5 MG TABLET (FP) PO SCH (23:07)
[2017-01-30 08:30] LABS: CALCIUM 8.9 mg/dL (8.5-10.1); COCKROFT - GAULT 48.246; CREATININE 1.1 mg/dL (0.55-1.02)
[2017-01-30] MEDS: PANTOPRAZOLE 40 MG TABLET (FP) PO SCH (09:29)
[2017-01-30] MEDS: VALSARTAN 160 MG TABLET (UD) PO SCH (09:29)
--- NOTE | 2017-01-30 10:36 | PN ---
Progress Note, Physician History of Present Illness: Pt seen and examined at bedside. She is awake and alert. She denies dysuria or hematuria. - Current Medication List Current Medications: Active Medications Acetaminophen (Tylenol -) 650 mg PO Q6H PRN PRN Reason: FEVER OR PAIN Hydrochlorothiazide (Hctz -) 12.5 mg PO DAILY [facility] Last Admin: 01/29/17 11:01 Dose: 12.5 mg Pantoprazole Sodium (Protonix -) 40 mg PO DAILY [facility] Last Admin: 01/30/17 09:29 Dose: 40 mg Rosuvastatin Calcium (Crestor -) 5 mg PO HS [facility] Last Admin: 01/29/17 23:07 Dose: 5 mg Valsartan (Diovan -) 160 mg PO DAILY [facility] Last Admin: 01/30/17 09:29 Dose: 160 mg - Objective Vital Signs: Vital Signs Temperature 98.5 F 01/30/17 08:05 Pulse Rate 68 01/30/17 08:05 Respiratory Rate 20 01/30/17 08:05 Blood Pressure 146/76 01/30/17 08:05 O2 Sat by Pulse Oximetry (%) 100 01/29/17 15:27 Constitutional: Yes: Calm Eyes: Yes: Conjunctiva Clear HENT: Yes: Atraumatic Neck: Yes: Supple Cardiovascular: Yes: S1, S2 Respiratory: Yes: CTA Bilaterally Gastrointestinal: Yes: Soft Genitourinary: Yes: WNL Extremities: Yes: WNL Edema: No Neurological: Yes: Oriented Psychiatric: Yes: Oriented Labs: CBC, BMP 01/30/17 06:00 Problem List - Problems (1) Syncope Code(s): R55 - SYNCOPE AND COLLAPSE Qualifiers: Qualified Code(s): R55 - Syncope and collapse (2) Azotemia Code(s): R79.89 - OTHER SPECIFIED ABNORMAL FINDINGS OF BLOOD CHEMISTRY (3) Hypertension Code(s): I10 - ESSENTIAL (PRIMARY) HYPERTENSION Assessment/Plan Current Medications Generic Name Dose Route Start Last Admin Trade Name Freq PRN Reason Stop Dose Admin Acetaminophen 650 mg 01/28/17 23:05 Tylenol - PO Q6H PRN FEVER OR PAIN Hydrochlorothiazide 12.5 mg 01/29/17 10:00 01/29/17 11:01 Hctz - PO 12.5 mg DAILY [facility] Administration Pantoprazole Sodium 40 mg 01/29/17 10:00 01/30/17 09:29 Protonix - PO 40 mg DAILY MACIEL Administration Rosuvastatin Calcium 5 mg 01/29/17 22:00 01/29/17 23:07 Crestor - PO 5 mg HS MACIEL Administration Valsartan 160 mg 01/29/17 10:00 01/30/17 09:29 Diovan - PO 160 mg DAILY MACIEL Administration Impression 1. azotemia improving 2. syncope 3. HTN 4. hyperlipidemia 5. bilateral renal cysts Plan - renal function stabilizing - outpt follow up - bilateral renal cysts on ultrasound, will need to be followed - repeat labs in am - will need syncope workup - restart thiazide - will follow Dr Smith
--- NOTE | 2017-01-30 10:40 | CONSULT ---
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: Alzheimer's, CVA, Dementia, Migraine, Multiple Sclerosis, Peripheral Neuropathy, Parkinson's, Seizure, Syncope, TIA, Vertigo, Other Cardio/Vascular: Yes: HTN, Hyperlipdemia Pulmonary: No: Asthma, Bronchitis, Cancer, COPD, O2 Dependent, Pneumonia, Previously Intubated, Pulmonary Embolus, Pulmonary Fibrosis, Sleep Apnea, Other Gastrointestinal: Yes: GERD Endocrine: Yes: Diabetes Mellitus - Past Surgical History Past Surgical History: Yes: None - Alcohol/Substance Use Hx Alcohol Use: No History of Substance Use: reports: None - Smoking History Smoking history: Former smoker Have you smoked in the past 12 months: No Aproximately how many cigarettes per day: 0 Home Medications - Allergies Allergies/Adverse Reactions: Allergies Allergy/AdvReac Type Severity Reaction Status Date / Time No Known Allergies Allergy Verified 01/28/17 16:56 - Home Medications Home Medications: Ambulatory Orders Esomeprazole Mag Trihydrate [Nexium] 40 mg PO DAILY 05/02/12 Rosuvastatin Calcium [Crestor] 5 mg PO DAILY 05/02/12 Aspirin [ASA -] 81 mg PO DAILY #0 tab.chew 09/29/12 Insulin Pump Cartridge [Cartridge Stamped] 1 each SQ ASDIR 10/03/14 Valsartan/Hydrochlorothiazide [Valsartan-Hctz 160-12.5 mg Tab] 1 each PO DAILY 01/28/17 Review of Systems - Review of Systems Constitutional: reports: Weakness Eyes: reports: No Symptoms HENT: reports: No Symptoms Neck: reports: No Symptoms Cardiovascular: reports: No Symptoms Respiratory: reports: No Symptoms Gastrointestinal: reports: Bloating Genitourinary: reports: No Symptoms Breasts: reports: No Symptoms Reported Musculoskeletal: reports: No Symptoms Integumentary: reports: No Symptoms Neurological: reports: Numbness, Weakness Endocrine: reports: No Symptoms Physical Exam Vital Signs: Vital Signs Temperature 98.5 F 01/30/17 08:05 Pulse Rate 68 01/30/17 08:05 Respiratory Rate 20 01/30/17 08:05 Blood Pressure 146/76 01/30/17 08:05 O2 Sat by Pulse Oximetry (%) 100 01/29/17 15:27 Constitutional: Yes: Well Nourished Eyes: Yes: WNL HENT: Yes: WNL Neck: Yes: WNL Cardiovascular: Yes: WNL Respiratory: Yes: WNL Gastrointestinal: Yes: WNL ...Rectal Exam: Yes: Deferred Renal/: Yes: WNL Breast(s): Yes: WNL Musculoskeletal: Yes: WNL Extremities: Yes: WNL Edema: No Peripheral Pulses WNL: Yes Integumentary: Yes: WNL Neurological: Yes: Alert, Oriented ...Motor Strength: WNL Psychiatric: Yes: WNL Labs: CBC, BMP 01/30/17 06:00 Problem List - Problems (1) Syncope Code(s): R55 - SYNCOPE AND COLLAPSE Qualifiers: Syncope type: vasovagal syncope Qualified Code(s): R55 - Syncope and collapse (2) IDDM (insulin dependent diabetes mellitus) Code(s): E11.9 - TYPE 2 DIABETES MELLITUS WITHOUT COMPLICATIONS Z79.4 - LONGTERM (CURRENT) USE OF INSULIN Assessment/Plan Current Active Problems Azotemia (Acute) Hypertension (Acute) Abnormal Lab Results 01/29/17 01/30/17 10:00 06:00 BUN 19 H D 21 H Creatinine 1.1 H D 1.1 H Random Glucose 150 H D AST 44 H D Syncope (Acute) iddm diabetic autonomic neuropathy Laboratory Results - last 24 hr 01/29/17 01/29/17 01/29/17 10:00 10:00 11:50 WBC 6.9 RBC 4.46 Hgb 12.7 Hct 38.1 MCV 85.3 MCHC 33.4 RDW 15.4 Plt Count 183 MPV 9.3 Sodium 141 Potassium 3.9 Chloride 104 Carbon Dioxide 27 Anion Gap 10 BUN 19 H D Creatinine 1.1 H D Creat Clearance w eGFR 48.16 POC Glucometer 157 Random Glucose 150 H D Calcium 8.9 Total Bilirubin 0.4 AST 44 H D ALT 56 Alkaline Phosphatase 95 Total Protein 6.9 Albumin 3.4 01/29/17 01/29/17 01/30/17 17:34 23:06 06:00 WBC RBC Hgb Hct MCV MCHC RDW Plt Count MPV Sodium 144 Potassium 3.9 Chloride 106 Carbon Dioxide 28 Anion Gap 10 BUN 21 H Creatinine 1.1 H Creat Clearance w eGFR POC Glucometer 133 160 Random Glucose 100 D Calcium 8.9 Total Bilirubin AST ALT Alkaline Phosphatase Total Protein Albumin 01/30/17 06:39 WBC RBC Hgb Hct MCV MCHC RDW Plt Count MPV Sodium Potassium Chloride Carbon Dioxide Anion Gap BUN Creatinine Creat Clearance w eGFR POC Glucometer 105 Random Glucose Calcium Total Bilirubin AST ALT Alkaline Phosphatase Total Protein Albumin plan: cardiac workup possible tilt test and event monitor plan;ck mr bgm qid novolog insulin with pump control as patient is on this device for system support analyst control patient is comfortable with and competent in using device with diabetic system support analyst goals achieved with teaching and cde instructor follow up
--- NOTE | 2017-01-30 11:07 | PN ---
Progress Note, Physician Chief Complaint: no further episodes telemetry negative for events History of Present Illness: 76 year old woman with a history of IDDM, HTN, HLD, and GERD, syncope x 3 in the past seen by Dr Baptiste in the past with recent normal echo, stress test and carotid sonogram in his office who was admitted 01/28/17 after syncope while sitting on the bus. Does not remember a prodrome. No chest pain, orthopnea, pnd or edema. No palpitations or dizziness. Baseline exercise tolerance is good. - Current Medication List Current Medications: Active Medications Acetaminophen (Tylenol -) 650 mg PO Q6H PRN PRN Reason: FEVER OR PAIN Hydrochlorothiazide (Hctz -) 12.5 mg PO DAILY ON [facility] Last Admin: 01/29/17 11:01 Dose: 12.5 mg Pantoprazole Sodium (Protonix -) 40 mg PO DAILY [facility] OF [facility] Last Admin: 01/30/17 09:29 Dose: 40 mg Rosuvastatin Calcium (Crestor -) 5 mg PO HS [facility] OF [facility] Last Admin: 01/29/17 23:07 Dose: 5 mg Valsartan (Diovan -) 160 mg PO DAILY ON [facility] Last Admin: 01/30/17 09:29 Dose: 160 mg - Objective Vital Signs: Vital Signs Temperature 98.5 F 01/30/17 08:05 Pulse Rate 68 01/30/17 08:05 Respiratory Rate 20 01/30/17 08:05 Blood Pressure 146/76 01/30/17 08:05 O2 Sat by Pulse Oximetry (%) 100 01/29/17 15:27 Constitutional: Yes: Well Nourished, No Distress Eyes: Yes: WNL HENT: Yes: WNL Neck: Yes: WNL Cardiovascular: Yes: Regular Rate and Rhythm Respiratory: Yes: WNL, CTA Bilaterally Gastrointestinal: Yes: Normal Bowel Sounds, Soft Musculoskeletal: Yes: WNL Extremities: Yes: WNL Edema: No Peripheral Pulses WNL: Yes Labs: CBC, BMP 01/30/17 06:00 Problem List - Problems (1) Syncope Assessment/Plan: Unclear etiology. May be vagal but lack of prodrome is concerning. Told normal workup by Dr Baptiste's office. check orthostatic bp get reports from Dr Baptiste's office. Would need outpatient tilt table testing and likely needs Implantable loop recorder as outpatient. if not orthostatic and labs normal can follow as outpatient. If going home would temporarily hold valsartan as she is at high risk of orthostasis. restart HCTZ. dc planning per medicine. No need for further inpatient ross. Code(s): R55 - SYNCOPE AND COLLAPSE Qualifiers: Syncope type: vasovagal syncope Qualified Code(s): R55 - Syncope and collapse (2) Bradycardia Assessment/Plan: mild sinus bradycardia, now resolved. Code(s): R00.1 - BRADYCARDIA, UNSPECIFIED
[2017-01-30 11:39] LABS: THYROID STIMULATING HORMONE 5.31 uIU/ml (0.358-3.74)
--- NOTE | 2017-01-30 15:15 | PN ---
Progress Note, Physician History of Present Illness: stable says she is doing well patient cant remember that she spoke with me remains afebrile stable - Current Medication List Current Medications: Active Medications Acetaminophen (Tylenol -) 650 mg PO Q6H PRN PRN Reason: FEVER OR PAIN Hydrochlorothiazide (Hctz -) 12.5 mg PO DAILY [facility] Last Admin: 01/29/17 11:01 Dose: 12.5 mg Pantoprazole Sodium (Protonix -) 40 mg PO DAILY [facility] Last Admin: 01/30/17 09:29 Dose: 40 mg Rosuvastatin Calcium (Crestor -) 5 mg PO HS [facility]PL[facility] Last Admin: 01/29/17 23:07 Dose: 5 mg - Objective Vital Signs: Vital Signs Temperature 98.2 F 01/30/17 14:31 Pulse Rate 69 01/30/17 14:31 Respiratory Rate 16 01/30/17 14:31 Blood Pressure 135/77 01/30/17 14:31 O2 Sat by Pulse Oximetry (%) 100 01/29/17 15:27 Constitutional: Yes: No Distress, Calm Cardiovascular: Yes: Regular Rate and Rhythm Respiratory: Yes: Regular, CTA Bilaterally Gastrointestinal: Yes: Normal Bowel Sounds, Soft Musculoskeletal: Yes: WNL Extremities: Yes: WNL Neurological: Yes: Alert, Other Labs: CBC, BMP 01/30/17 06:00 Assessment/Plan Problem List - Problems (1) Syncope Code(s): R55 - SYNCOPE AND COLLAPSE Qualifiers: Syncope type: vasovagal syncope Qualified Code(s): R55 - Syncope and collapse (2) Bradycardia Code(s): R00.1 - BRADYCARDIA, UNSPECIFIED (3) Azotemia Code(s): R79.89 - OTHER SPECIFIED ABNORMAL FINDINGS OF BLOOD CHEMISTRY (4) Hypertension Code(s): I10 - ESSENTIAL (PRIMARY) HYPERTENSION (5) IDDM (insulin dependent diabetes mellitus) Code(s): E11.9 - TYPE 2 DIABETES MELLITUS WITHOUT COMPLICATIONS Z79.4 - RN INTERN (CURRENT) USE OF INSULIN plan continue current abx await for cx result to be back
--- NOTE | 2017-01-30 15:30 | PN ---
Progress Note, Physician History of Present Illness: stable - Current Medication List Current Medications: Active Medications Acetaminophen (Tylenol -) 650 mg PO Q6H PRN PRN Reason: FEVER OR PAIN Hydrochlorothiazide (Hctz -) 12.5 mg PO DAILY [facility] Last Admin: 01/29/17 11:01 Dose: 12.5 mg Pantoprazole Sodium (Protonix -) 40 mg PO DAILY [facility] Last Admin: 01/30/17 09:29 Dose: 40 mg Rosuvastatin Calcium (Crestor -) 5 mg PO HS [facility] Last Admin: 01/29/17 23:07 Dose: 5 mg - Objective Vital Signs: Vital Signs Temperature 98.2 F 01/30/17 14:31 Pulse Rate 69 01/30/17 14:31 Respiratory Rate 16 01/30/17 14:31 Blood Pressure 135/77 01/30/17 14:31 O2 Sat by Pulse Oximetry (%) 100 01/29/17 15:27 Constitutional: Yes: No Distress HENT: Yes: Atraumatic Neck: Yes: Supple Cardiovascular: Yes: Regular Rate and Rhythm Respiratory: Yes: CTA Bilaterally Gastrointestinal: Yes: Normal Bowel Sounds Extremities: Yes: WNL Neurological: Yes: Alert, Oriented Labs: CBC, BMP 01/30/17 06:00 Problem List - Problems (1) Hypertension Assessment/Plan: on hctz consider adding second antihypertensive Code(s): I10 - ESSENTIAL (PRIMARY) HYPERTENSION (2) IDDM (insulin dependent diabetes mellitus) Assessment/Plan: on insulin Code(s): E11.9 - TYPE 2 DIABETES MELLITUS WITHOUT COMPLICATIONS Z79.4 - HALFWAY (CURRENT) USE OF INSULIN (3) Syncope Assessment/Plan: resolved Code(s): R55 - SYNCOPE AND COLLAPSE Qualifiers: Syncope type: vasovagal syncope Qualified Code(s): R55 - Syncope and collapse (4) Bradycardia Assessment/Plan: resolved Code(s): R00.1 - BRADYCARDIA, UNSPECIFIED (5) UTI (urinary tract infection) Assessment/Plan: cxs pending off of abx, no symptoms Code(s): N39.0 - URINARY TRACT INFECTION, SITE NOT SPECIFIED Assessment/Plan covering dr boyd
[2017-01-30] MEDS ORDERED: PT OWN MED DRAWER 7, Y5N ONE ×2 (18:38→21:26)
[2017-01-30] MEDS: ROSUVASTATIN CA 5 MG TABLET (FP) PO SCH (21:31)
[2017-01-31 00:02] LABS: URINE APPEARANCE CLEAR; URINE BILIRUBIN NEGATIVE (NEGATIVE); URINE BLOOD NEGATIVE (NEGATIVE); URINE COLOR COLORLESS; URINE GLUCOSE (UA) NEGATIVE (NEGATIVE); URINE KETONE NEGATIVE (NEGATIVE); URINE NITRITE NEGATIVE (NEGATIVE); URINE PROTEIN NEGATIVE (NEGATIVE); URINE UROBILINOGEN NEGATIVE E.U./dl (0.2-1.0)
[2017-01-31 00:16] LABS: URINE LEUK ESTERASE TRACE (NEGATIVE)
[2017-01-31 00:17] LABS: URINE BACTERIA MANY /hpf (NONE SEEN); URINE HYALINE CAST 2 /lpf; URINE RBC 1 /hpf (0-3); URINE WBC 11 /hpf (3-5)
[2017-01-31 08:17] LABS: CALCIUM 8.6 mg/dL (8.5-10.1)
--- NOTE | 2017-01-31 09:30 | PN ---
Progress Note, Physician Chief Complaint: no further episodes telemetry negative for events History of Present Illness: 76 year old woman with a history of IDDM, HTN, HLD, and GERD, syncope x 3 in the past seen by Dr Baptiste in the past with recent normal echo, stress test and carotid sonogram in his office who was admitted 01/28/17 after syncope while sitting on the bus. Does not remember a prodrome. No chest pain, orthopnea, pnd or edema. No palpitations or dizziness. Baseline exercise tolerance is good. - Current Medication List Current Medications: Active Medications Acetaminophen (Tylenol -) 650 mg PO Q6H PRN PRN Reason: FEVER OR PAIN Hydrochlorothiazide (Hctz -) 12.5 mg PO DAILY [facility] Last Admin: 01/29/17 11:01 Dose: 12.5 mg Pantoprazole Sodium (Protonix -) 40 mg PO DAILY [facility] Last Admin: 01/30/17 09:29 Dose: 40 mg Rosuvastatin Calcium (Crestor -) 5 mg PO HS [facility] Last Admin: 01/30/17 21:31 Dose: 5 mg - Objective Vital Signs: Vital Signs Temperature 98.7 F 01/31/17 06:00 Pulse Rate 65 01/31/17 06:00 Respiratory Rate 20 01/31/17 06:00 Blood Pressure 134/72 01/31/17 06:00 O2 Sat by Pulse Oximetry (%) 100 01/30/17 21:00 Constitutional: Yes: No Distress Eyes: Yes: WNL HENT: Yes: WNL Neck: Yes: Supple Cardiovascular: Yes: Regular Rate and Rhythm Respiratory: Yes: CTA Bilaterally Gastrointestinal: Yes: Normal Bowel Sounds, Soft Extremities: Yes: WNL Edema: No Peripheral Pulses WNL: Yes Labs: CBC, BMP 01/31/17 06:00 Problem List - Problems (1) Syncope Assessment/Plan: Unclear etiology. May be vagal but lack of prodrome is concerning. Told normal workup by Dr Baptiste's office. check orthostatic bp get reports from Dr Baptiste's office. Would need outpatient tilt table testing and likely needs Implantable loop recorder as outpatient. if not orthostatic and labs normal can follow as outpatient. If going home would temporarily hold valsartan as she is at high risk of orthostasis. restart HCTZ. dc planning per medicine. No need for further inpatient ross. Code(s): R55 - SYNCOPE AND COLLAPSE Qualifiers: Syncope type: vasovagal syncope Qualified Code(s): R55 - Syncope and collapse (2) Bradycardia Assessment/Plan: mild sinus bradycardia, now resolved. Code(s): R00.1 - BRADYCARDIA, UNSPECIFIED
[2017-01-31] MEDS: HYDROCHLOROTHIAZIDE 12.5 MG CAPSULE (FP) PO SCH (10:29)
[2017-01-31] MEDS: PANTOPRAZOLE 40 MG TABLET (FP) PO SCH (10:29)
--- NOTE | 2017-01-31 13:44 | DS ---
Physical Examination Vital Signs: Vital Signs Temperature 98.7 F 01/31/17 06:00 Pulse Rate 61 01/31/17 12:14 Respiratory Rate 20 01/31/17 06:00 Blood Pressure 163/76 01/31/17 12:14 O2 Sat by Pulse Oximetry (%) 97 01/31/17 09:00 awaiting MRI wants to go home no CP no dizzniess Constitutional: Yes: Calm Cardiovascular: Yes: Regular Rate and Rhythm Respiratory: Yes: CTA Bilaterally Gastrointestinal: Yes: Normal Bowel Sounds, Soft Edema: No Neurological: Yes: Alert, Oriented Labs: CBC, BMP 01/31/17 06:00 Discharge Summary Reason For Visit: SYNCOPE Current Active Problems Azotemia (Acute) Hypertension (Acute) IDDM (insulin dependent diabetes mellitus) (Acute) Syncope (Acute) UTI (urinary tract infection) (Acute) Hospital Course: PCP: Anastasiia Jara - Admission Chief Complaint: SYNCOPE/DIZZINESS/UTI History of Present Illness: Patient is a 76 year old female with significant medical hx of IDDM, HTN, HLD, and GERD who is presenting to the ED for syncope from today. The patient was on the bus when she lost consciousness and woke up to paramedics evaluating her. Patient states that she was still on the bus when she came back into consciousness. The patient reports she felt fine this morning and denies any recent illness, chest pain, shortness of breath, lightheadedness, neck pain, back pain, headache, vision changes, or dizziness. The patient endorses three other similar episodes within the past six years. Her last syncopal episode occurred two months ago while walking in [employer]. She states that she was walking and the next thing she knew, the ambulance was there. Denies any fever, chills, nausea, vomiting, diarrhea, dysuria, melena/bpr or any other complaints. 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: Alzheimer's, CVA, Dementia, Migraine, Multiple Sclerosis, Peripheral Neuropathy, Parkinson's, Seizure, Syncope, TIA, Vertigo, Other Cardiovascular: Yes: HTN Pulmonary: No: Asthma, Bronchitis, Cancer, COPD, O2 Dependent, Pneumonia, Previously Intubated, Pulmonary Embolus, Pulmonary Fibrosis, Sleep Apnea, Other Gastrointestinal: Yes: GERD Endocrine: Yes: Diabetes Mellitus - Past Surgical History Past Surgical History: Yes: None stop valsartan go to cardio as outpatient and get loop recorder and tilt table test to get brain MRI today urine contaminated abx stopped - Instructions Diet, Activity, Other Instructions: stop valsartan until you see dr baptiste Referrals: Beny Baptiste MD [Staff Physician] - 1 Week (for tilt table test and loop recorder) Jaime Lopez MD [Primary Care Provider] - Disposition: HOME - Home Medications Comprehensive Discharge Medication List: Ambulatory Orders Esomeprazole Mag Trihydrate [Nexium] 40 mg PO DAILY 05/02/12 Rosuvastatin Calcium [Crestor] 5 mg PO DAILY 05/02/12 Aspirin [ASA -] 81 mg PO DAILY #0 tab.chew 09/29/12 Insulin Pump Cartridge [Cartridge Stamped] 1 each SQ ASDIR 10/03/14 Hydrochlorothiazide [Hctz -] 12.5 mg PO DAILY #30 cap MDD 1 01/31/17
--- NOTE | 2017-01-31 13:45 | PN ---
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
[2017-01-31 14:50] VITALS: BP 155/78; PULSE 68; TEMP 98.7
--- NOTE | 2017-01-31 16:02 | PN ---
Progress Note, Physician History of Present Illness: Pt seen and examined at bedside. She has no complaints. - Current Medication List Current Medications: Active Medications Acetaminophen (Tylenol -) 650 mg PO Q6H PRN PRN Reason: FEVER OR PAIN Amoxicillin/Clavulanate Potassium (Augmentin - 500mg Tablet) 1 tab PO BID@0800, 1730 [facility] Stop: 02/07/17 17:29 Hydrochlorothiazide (Hctz -) 12.5 mg PO DAILY [facility] Last Admin: 01/31/17 10:29 Dose: 12.5 mg Pantoprazole Sodium (Protonix -) 40 mg PO DAILY [facility] Last Admin: 01/31/17 10:29 Dose: 40 mg Rosuvastatin Calcium (Crestor -) 5 mg PO HS [facility] Last Admin: 01/30/17 21:31 Dose: 5 mg - Objective Vital Signs: Vital Signs Temperature 98.7 F 01/31/17 14:47 Pulse Rate 68 01/31/17 14:47 Respiratory Rate 18 01/31/17 14:47 Blood Pressure 155/78 01/31/17 14:47 O2 Sat by Pulse Oximetry (%) 97 01/31/17 09:00 Constitutional: Yes: Calm Eyes: Yes: Conjunctiva Clear HENT: Yes: Atraumatic Cardiovascular: Yes: S1, S2 Respiratory: Yes: CTA Bilaterally Gastrointestinal: Yes: Soft Musculoskeletal: Yes: WNL Edema: No Neurological: Yes: Oriented Psychiatric: Yes: Oriented Labs: CBC, BMP 01/31/17 06:00 Problem List - Problems (1) Syncope Code(s): R55 - SYNCOPE AND COLLAPSE Qualifiers: Syncope type: vasovagal syncope Qualified Code(s): R55 - Syncope and collapse (2) Azotemia Code(s): R79.89 - OTHER SPECIFIED ABNORMAL FINDINGS OF BLOOD CHEMISTRY (3) Hypertension Code(s): I10 - ESSENTIAL (PRIMARY) HYPERTENSION Assessment/Plan Current Medications Generic Name Dose Route Start Last Admin Trade Name Freq PRN Reason Stop Dose Admin Acetaminophen 650 mg 01/28/17 23:05 Tylenol - PO Q6H PRN FEVER OR PAIN Amoxicillin/Clavulanate Potassium 1 tab 01/31/17 17:30 Augmentin - 500mg Tablet PO 02/07/17 17:29 BID@0800,1730 [facility] Hydrochlorothiazide 12.5 mg 01/29/17 10:00 01/31/17 10:29 Hctz - PO 12.5 mg DAILY [facility] Administration Pantoprazole Sodium 40 mg 01/29/17 10:00 01/31/17 10:29 Protonix - PO 40 mg DAILY [facility] Administration Rosuvastatin Calcium 5 mg 01/29/17 22:00 01/30/17 21:31 Crestor - PO 5 mg HS [facility] Administration Impression 1. azotemia improving 2. syncope 3. HTN 4. hyperlipidemia 5. bilateral renal cysts Plan - renal function is improving - can follow as outpt - bilateral renal cysts on ultrasound, will need to be followed - cont current meds - will follow Dr Smith
--- NOTE | 2017-01-31 16:54 | PN ---
Progress Note, Physician History of Present Illness: no events forgetfullness main issue - Current Medication List Current Medications: Active Medications Acetaminophen (Tylenol -) 650 mg PO Q6H PRN PRN Reason: FEVER OR PAIN Amoxicillin/Clavulanate Potassium (Augmentin - 500mg Tablet) 1 tab PO BID@0800, 1730 [facility] Stop: 02/07/17 17:29 Last Admin: 01/31/17 16:51 Dose: 1 tab Hydrochlorothiazide (Hctz -) 12.5 mg PO DAILY [facility] Last Admin: 01/31/17 10:29 Dose: 12.5 mg Pantoprazole Sodium (Protonix -) 40 mg PO DAILY [facility] Last Admin: 01/31/17 10:29 Dose: 40 mg Rosuvastatin Calcium (Crestor -) 5 mg PO HS [facility] Last Admin: 01/30/17 21:31 Dose: 5 mg - Objective Vital Signs: Vital Signs Temperature 98.7 F 01/31/17 14:47 Pulse Rate 68 01/31/17 14:47 Respiratory Rate 18 01/31/17 14:47 Blood Pressure 155/78 01/31/17 14:47 O2 Sat by Pulse Oximetry (%) 97 01/31/17 09:00 Constitutional: Yes: No Distress, Calm Cardiovascular: Yes: Regular Rate and Rhythm Respiratory: Yes: Regular, CTA Bilaterally Gastrointestinal: Yes: Normal Bowel Sounds, Soft Genitourinary: Yes: Anuria Extremities: Yes: WNL Neurological: Yes: Alert, Oriented Psychiatric: Yes: Alert, Oriented Labs: CBC, BMP 01/31/17 06:00 Assessment/Plan Problem List - Problems (1) Syncope Code(s): R55 - SYNCOPE AND COLLAPSE Qualifiers: Syncope type: vasovagal syncope Qualified Code(s): R55 - Syncope and collapse (2) Bradycardia Code(s): R00.1 - BRADYCARDIA, UNSPECIFIED (3) Azotemia Code(s): R79.89 - OTHER SPECIFIED ABNORMAL FINDINGS OF BLOOD CHEMISTRY (4) Hypertension Code(s): I10 - ESSENTIAL (PRIMARY) HYPERTENSION (5) IDDM (insulin dependent diabetes mellitus) Code(s): E11.9 - TYPE 2 DIABETES MELLITUS WITHOUT COMPLICATIONS 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
[2017-01-31] MEDS ORDERED: AMOX TR/POT CLAV 500MG/125MG TABLETS (FP) PO SCH (17:30)
== END 2017-01-31 18:37 | disposition home or self-care (01) ==
LOC: JER 16:42 → INTOOBSV 19:52 → UNDOADMOB 19:52 → JERBED 19:52 → J8W 22:59 → JERBED 01-29 18:45 → J8W 01-29 18:45
PROVIDERS: ADMIT Family Medicine; ATTEND Family Medicine
PROC: 3E0337Z Introduction of Electrolytic and Water Balance Substance into Peripheral Vein, Percutaneous Approach (ICD-10-PCS; principal; 2017-01-29)
DX: R55 Syncope and collapse (principal); R00.1 Bradycardia, unspecified; I10 Essential (primary) hypertension; E11.9 Type 2 diabetes mellitus without complications; Z96.41 Presence of insulin pump (external) (internal); Z79.4 Long term (current) use of insulin; E78.5 Hyperlipidemia, unspecified; K21.9 Gastro-esophageal reflux disease without esophagitis; Z87.891 Personal history of nicotine dependence; Z79.82 Long term (current) use of aspirin; R79.89 Other specified abnormal findings of blood chemistry; N39.0 Urinary tract infection, site not specified
CPT/HCPCS: 36415; 70553-TC; 71010-TC; 76775-TC; 76856-TC; 80048; 80053; 81003; 81015; 82550; 82553; 83036; 84443; 84484; 85025; 85027; 87086; 93005; 93010; 97116-GP; 97161-GP; 99285-25; C1887; G0378

== ENCOUNTER 2017-10-17 21:41 | Observation (INO) | payer OTHER ==
[2017-10-17 22:04] VITALS: BMI 28.3
--- NOTE | 2017-10-17 22:10 | PDOC ---
History of Present Illness - General Stated Complaint: SYNCOPE Time Seen by Provider: 10/17/17 21:51 - History of Present Illness Initial Comments: 10/17/17 21:57 77 yo F with h/o HTN, HLD, IDDM (insulin pump), Recurrent syncope, who presents with syncopal event. Per patient family member at bedside patient was at [employer] from 6:30-8:00 pm when she experienced LOC for 10 minutes while sitting in the pew. Patient exhibited jerky movments periodically for 10 minutes, with gagging. No asx. tongue biting, urinary incontinence, head, or neck trauma, or postictal weakness. Patient does not recall event, and reports waking up in EMS vehicle. Prior to sycnopal event patient recalls GI upset/discomfort attributed to eating spicy food. Also reports flustered feeling prior to event. Denies N/V , fevers/chills, chest pain, palpitations, SOB, urinary complaints, diarrhea, constipation, MIJARES, tinnitus, weakness, sensory disturbance. Patient reports this being the fifth syncopal episode since September 2012. MRI 01/2017 Unremarkable with chronic ischemic changes 2/2 HTV vs. small vessel arthersclerosis. Director Of Corporate Sales Beny Baptiste. PMD. John. Past History - Past Medical History Allergies/Adverse Reactions: Allergies Allergy/AdvReac Type Severity Reaction Status Date / Time No Known Allergies Allergy Verified 10/17/17 22:01 Home Medications: Ambulatory Orders Aspirin 81 mg PO DAILY 10/17/17 Esomeprazole Magnesium [Nexium 24Hr] 40 mg PO DAILY 10/17/17 Insulin Aspart [Novolog] 100 unit SQ DAILY 10/17/17 Rosuvastatin Calcium [Crestor] 5 mg PO DAILY 10/17/17 Valsartan [Diovan] 80 mg PO DAILY 10/17/17 Diabetes: Yes (IDDM insulin pump) GI Disorders: Yes (GERD) HTN: Yes Hypercholesterolemia: Yes - Suicide/Smoking/Psychosocial Hx Smoking Status: No Smoking History: Former smoker Have you smoked in the past 12 months: No Number of Cigarettes Smoked Daily: 0 Hx Alcohol Use: No Drug/Substance Use Hx: No Substance Use Type: None Review of Systems - Review of Systems Comments:: 10/17/17 22:38 GENERAL/CONSTITUTIONAL: No fever or chills. No weakness. HEAD, EYES, EARS, NOSE AND THROAT: No change in vision. No ear pain or discharge. No sore throat.- CARDIOVASCULAR: No chest pain or shortness of breath RESPIRATORY: No cough, wheezing, or hemoptysis. GASTROINTESTINAL: No nausea, vomiting, diarrhea or constipation. GENITOURINARY: No dysuria, frequency, or change in urination. MUSCULOSKELETAL: No joint or muscle swelling or pain. No neck or back pain. SKIN: No rash NEUROLOGIC: No headache, vertigo, loss of consciousness, or change in strength/ sensation. ENDOCRINE: No increased thirst. No abnormal weight change HEMATOLOGIC/LYMPHATIC: No anemia, easy bleeding, or history of blood clots. ALLERGIC/IMMUNOLOGIC: No hives or skin allergy. *Physical Exam - Physical Exam Comments: 10/17/17 22:38 GENERAL: Awake, alert, and fully oriented, in no acute distress HEAD: No signs of trauma, normocephalic, atraumatic EYES: PERRLA, EOMI, sclera anicteric, conjunctiva clear ENT: Hearing grossly normal, nares patent, oropharynx clear without exudates. Moist mucosa NECK: Normal ROM, no JVD, or masses LUNGS: No distress, speaks full sentences, clear to auscultation bilaterally HEART: Regular rate and rhythm, normal S1 and S2, no murmurs, rubs or gallops, peripheral pulses normal and equal bilaterally. ABDOMEN: Soft, nontender, normoactive bowel sounds. Insulin in place in RLQ. No guarding, no rebound. No masses EXTREMITIES : Normal inspection, Normal range of motion, no edema. No clubbing or cyanosis. NEUROLOGICAL: Cranial nerves II through XII grossly intact. Normal speech, normal gait, no focal sensorimotor deficits. Normal LIDIA, absent dysmetria on FTN. SKIN: Warm, Dry, normal turgor, no rashes or lesions noted. 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 LOC accompanied with jerky movements periodically for 10 minutes. No asx. tongue biting, urinary incontinence, head , or neck trauma, or postictal weakness. Patient does not recall event, and reports waking up in EMS vehicle. Prior to sycnopal event patient recalls GI upset/discomfort attributed to eating spicy food. Also reports flustered feeling prior to event. Denies N/V, fevers/chills, chest pain, palpitations, SOB , urinary complaints, diarrhea, constipation, MIJARES, tinnitus, weakness, sensory disturbance. Physical unremarkable with absent cardiac/pulmonary findings. Absent neurological deficits. H/o 5 syncopal episodes beginning September 2012. MRI 01/2017 Unremarkable with chronic ischemic changes 2/2 HTV vs. small vessel arthersclerosis. Director Of Corporate Sales Beny Baptiste. PMD. John. Patient presentation consistent with vasovagal syncope.Will also consider cardiac dysarrythmia vs metabolic disturbance vs. underlying infectious etiology. ED Course: CBC, CMP, Cardiac Profile UA CXR, EKG, CT HEAD NON CON Handed pt. off to Dr. Solomon. Labs, CT Head pending. *DC/Admit/Observation/Transfer - Referrals Referrals: Jaime Lopez MD [Staff Physician] - - Patient Instructions - Post Discharge Activity
--- NOTE | 2017-10-17 22:15 | PDOC ---
Attending Attestation - Resident Resident Name: Van Butcher - ED Attending Attestation I have performed the following: I have examined & evaluated the patient, The case was reviewed & discussed with the resident, I agree w/resident's findings & plan, Exceptions are as noted - HPI HPI: 10/18/17 01:16 77 YO female BIBA after a witnessed synopal episode at a dinner. Upon arrival she is alert and conversant with no focal neuro deficits. Pt states she had no prodromal symptosm prior to her episode -she DENIES dyspnea,chest or abdominal pain,nausea,vomiting,diarrhea,headache or visual complaints or back pain This is the 4th time this has happened to her. she was admitted in 2011,2014, 2017 for similar episodes 10/18/17 01:20 - Physicial Exam PE: 10/18/17 16:41 alert and conversant 77 yo female who arrived stating she has had 3 previous episodes . She denied chest pain WNWD 77 yo fmela in no acute distress head ncat neck no jvd,supple abd soft,nontender lungs cta b.l cvs [id number] ext no pitting edema skin warm and dry neuro no gross focal neuro deficits psych appropriate - Medical Decision Making 10/18/17 16:[address] Lary Shen . plan so second enzyme and in the morning they will look up results of the implantable loop study that was done previously
[2017-10-17] MEDS ORDERED: ASPIRIN 81 MG CHEWABLE TABLETS PO ONE (22:48)
[2017-10-17] MEDS ORDERED: SODIUM CHLORIDE 1,000 ML IV SCH (23:00)
[2017-10-17] MEDS ORDERED: ASPIRIN 81 MG CHEWABLE TABLETS ONE (23:20)
--- NOTE | 2017-10-18 00:16 | PDOC ---
*Physical Exam - Vital Signs Last Vital Signs Temp Pulse Resp BP Pulse Ox 97.8 F 84 14 109/64 91 L 10/17/17 22:01 10/17/17 22:01 10/17/17 22:01 10/17/17 22:01 10/17/17 22:01 <Elisa Alexis - Last Filed: 10/18/17 01:22> - Vital Signs Last Vital Signs Temp Pulse Resp BP Pulse Ox 97.8 F 84 14 109/64 91 L 10/17/17 22:01 10/17/17 22:01 10/17/17 22:01 10/17/17 22:01 10/17/17 22:01 <Bertram Solomon - Last Filed: 10/18/17 06:51> ED Treatment Course - LABORATORY CBC & Chemistry Diagram: 10/18/17 00:10 10/18/17 00:10 - ADDITIONAL ORDERS Additional order review: Laboratory Results 10/18/17 10/18/17 00:10 00:10 PT with INR 12.20 H INR 1.08 Sodium 142 Potassium 4.8 Chloride 105 Carbon Dioxide 29 Anion Gap 8 BUN 20 H Creatinine 1.5 H Creat Clearance w eGFR 33.58 Random Glucose 125 H Calcium 8.9 Total Bilirubin 0.3 D AST 46 H ALT 38 D Alkaline Phosphatase 101 Creatine Kinase 236 H Creatine Kinase Index 1.9 CK-MB (CK-2) 4.639 H Troponin I < 0.02 Total Protein 7.8 Albumin 3.5 10/18/17 00:10 RBC 4.78 MCV 83.4 MCHC 19.2 L RDW 16.4 H MPV 8.6 Neutrophils % 72.5 Lymphocytes % 20.0 D Monocytes % 5.5 Eosinophils % 1.4 Basophils % 0.6 - RADIOLOGY Radiology Studies Ordered: Category Date Time Status HEAD CT (STROKE) [CT] Stat CT Scan 10/18/17 00:10 Taken CHEST X-RAY PORTABLE* [RAD] Stat Radiology 10/17/17 22:49 Taken - Medications Given in the ED: ED Medications Discontinued Medications Generic Name Dose Route Start Last Admin Trade Name Freq PRN Reason Stop Dose Admin Aspirin 162 mg 10/17/17 22:48 10/17/17 23:00 Asa - PO 10/17/17 22:49 162 mg ONCE ONE Administration <Elisa Alexis - Last Filed: 10/18/17 01:22> - LABORATORY CBC & Chemistry Diagram: 10/18/17 00:10 10/18/17 00:10 - Medications Given in the ED: ED Medications Discontinued Medications Generic Name Dose Route Start Last Admin Trade Name Jeremias PRN Reason Stop Dose Admin Aspirin 162 mg 10/17/17 22:48 10/17/17 23:00 Asa - PO 10/17/17 22:49 162 mg ONCE ONE Administration <Bertram Solomon - Last Filed: 10/18/17 06:51> Medical Decision Making - Medical Decision Making 10/18/17 00:15 Pt signed out to me by Dr. Butcher, day team. The patient is a 77F who presented after a syncopal episode. Dispo depends on labs and CT head. Pt is stable. 10/18/17 03:[address] pt in ED Obs. At 0630, I have been instructed by the attending to call Dr. Baptiste to ask about results of her implantable loop records. Pending labs at 0600. 10/18/17 04:58 Hgb notable for 7.6. Decreased from previous (12). T&S ordered. Will change admission to full obs. Syncope likely 2/2 to acute drop in hgb. Admitting team aware of patient. 10/18/17 06:50 I informed the admitting team, Dr. Rivas, with regards to calling Dr. Baptiste about the results from the implantable look recorder. <Bertram Solomon - Last Filed: 10/18/17 06:51> *DC/Admit/Observation/Transfer <Elisa Alexis - Last Filed: 10/18/17 01:22> - Discharge Dispostion Admit: Yes <Bertram Solomon - Last Filed: 10/18/17 06:51> Diagnosis at time of Disposition: Syncope Qualifiers: Syncope type: unspecified Qualified Code(s): R55 - Syncope and collapse - Discharge Dispostion Condition at time of disposition: Stable
[2017-10-18 00:42] LABS: INR 1.08 (0.82-1.09); PROTHROMBIN TIME (PATIENT) 12.2 SEC (9.98-11.88)
[2017-10-18 00:50] LABS: ALBUMIN 3.5 g/dl (3.4-5.0); ANION GAP 8 (8-16); BLOOD UREA NITROGEN 20 mg/dL (7-18); CALCIUM 8.9 mg/dL (8.5-10.1); CHLORIDE 105 mmol/L (98-107); CO2 29 mmol/L (21-32); CREATININE 1.5 mg/dL (0.55-1.02); GLUCOSE,RANDOM 125 mg/dL (74-106); POTASSIUM 4.8 mmol/L (3.5-5.1); SGOT/AST 46 U/L (15-37); SGPT/ALT 38 U/L (12-78); SODIUM 142 mmol/L (136-145); TOT PROT 7.8 g/dl (6.4-8.2)
[2017-10-18 00:53] LABS: ALK PHOS 101 U/L (45-117); BILIRUBIN,TOTAL 0.3 mg/dL (0.2-1.0)
--- NOTE | 2017-10-18 05:54 | HP ---
CHIEF COMPLAINT: PCP: HISTORY OF PRESENT ILLNESS: 77 y/o F with h/o HTN, HLD, IDDM (insulin pump), recurrent syncope (this is her fifth episode), Medtronic cardiac device implant (2015; placed at [facility]) who was brought in by ambulance after she had a syncopal event [facility]. As per pt, she just remembers sitting down, and was later told she had LOC. Once she opened her eyes, she was being carried away on a stretcher to the ambulance. Pt does not know how long the episode lasted for. Denied MIJARES, fever, chills, lightheadedness, palpitations, N/V/D, postictal confusion, or any changes in urinary or bowel function. Pt states that this is the fifth time she has had a syncopal event. The first time it happened was in 2011, she was in a warm and stuffy room. She subsequently had events in 2014 and 2016 in public areas such as the grocery store. ER course was notable for: (1) Hb 7.6 , baseline 12 (2) first troponin: negative (3) Cr 1.5 Recent Travel: none PAST MEDICAL HISTORY: HTN, HLD, IDDM (insulin pump), recurrent syncope (this is her fifth episode), Medtronic cardiac device implant (2016; placed at [facility]. placed by Dr. Vince Sharma on 02/25/17; [phone]) PAST SURGICAL HISTORY: none Social History: Smokin yr smoking hx - 1 ppd Alcohol: denies Drugs: denies Family History: cancer in brother and sister - unsure of type Allergies No Known Allergies Allergy (Verified 10/17/17 22:01) HOME MEDICATIONS: Home Medications Medication Instructions Recorded Aspirin 81 mg PO DAILY 10/17/17 Esomeprazole Magnesium [Nexium 40 mg PO DAILY 10/17/17 24Hr] Insulin Aspart [Novolog] 100 unit SQ DAILY 10/17/17 Rosuvastatin Calcium [Crestor] 5 mg PO DAILY 10/17/17 Valsartan [Diovan] 80 mg PO DAILY 10/17/17 Confirmed with patient Confirm with pharmacy REVIEW OF SYSTEMS CONSTITUTIONAL: Absent: fever, chills, diaphoresis, generalized weakness, malaise, loss of appetite, weight change HEENT: Absent: rhinorrhea, nasal congestion, throat pain, throat swelling, difficulty swallowing, mouth swelling, ear pain, eye pain, visual changes CARDIOVASCULAR: +syncope Absent: chest pain, syncope, palpitations, irregular heart rate, lightheadedness , peripheral edema RESPIRATORY: Absent: cough, shortness of breath, dyspnea with exertion, orthopnea, wheezing, stridor, hemoptysis GASTROINTESTINAL: Absent: abdominal pain, abdominal distension, nausea, vomiting, diarrhea, constipation, melena, hematochezia GENITOURINARY: Absent: dysuria, frequency, urgency, hesitancy, hematuria, flank pain, genital pain MUSCULOSKELETAL: Absent: myalgia, arthralgia, joint swelling, back pain, neck pain SKIN: Absent: rash, itching, pallor HEMATOLOGIC/IMMUNOLOGIC: Absent: easy bleeding, easy bruising, lymphadenopathy, frequent infections ENDOCRINE: Absent: unexplained weight gain, unexplained weight loss, heat intolerance, cold intolerance NEUROLOGIC: Absent: headache, focal weakness or paresthesias, dizziness, unsteady gait, seizure, mental status changes, bladder or bowel incontinence PSYCHIATRIC: Absent: anxiety, depression, suicidal or homicidal ideation, hallucinations. PHYSICAL EXAMINATION Vital Signs - 24 hr 10/17/17 22:01 Temperature 97.8 F Pulse Rate 84 Respiratory 14 Rate Blood Pressure 109/64 O2 Sat by Pulse 91 L Oximetry (%) GENERAL: Resting comfortably. awake, alert, and fully oriented, in no acute distress. HEAD: Normal with no signs of trauma. EYES: Pupils equal, round and reactive to light, extraocular movements intact, sclera anicteric, conjunctiva clear. EARS, NOSE, THROAT: Ears normal, nares patent, oropharynx clear without exudates. Moist mucous membranes. NECK: Normal range of motion, supple without lymphadenopathy, JVD, or masses. LUNGS: decreased breath sounds. clear to auscultation bilaterally. No wheezes, and no crackles. No accessory muscle use. HEART: Regular rate and rhythm, normal S1 and S2 without murmur, rub or gallop. ABDOMEN: Soft, nontender, not distended, normoactive bowel sounds, no guarding, no rebound, no masses. LOWER EXTREMITIES: 2+ posterior tibial pulses, warm, well-perfused. No calf tenderness. No peripheral edema. NEUROLOGICAL: Cranial nerves II-XII intact. Laboratory Results 10/18/17 10/18/17 10/18/17 00:10 00:10 00:10 WBC 6.4 RBC 4.78 Hgb 7.6 L D Hct 39.9 MCV 83.4 MCH 16.0 L MCHC 19.2 L RDW 16.4 H Plt Count 163 MPV 8.6 Neutrophils % 72.5 Lymphocytes % 20.0 D Monocytes % 5.5 Eosinophils % 1.4 Basophils % 0.6 PT with INR 12.20 H INR 1.08 Sodium 142 Potassium 4.8 Chloride 105 Carbon Dioxide 29 Anion Gap 8 BUN 20 H Creatinine 1.5 H Creat Clearance w eGFR 33.58 Random Glucose 125 H Calcium 8.9 Total Bilirubin 0.3 D AST 46 H ALT 38 D Alkaline Phosphatase 101 Creatine Kinase 236 H Creatine Kinase Index 1.9 CK-MB (CK-2) 4.639 H Troponin I < 0.02 Total Protein 7.8 Albumin 3.5 ASSESSMENT/PLAN: 77 y/o F with h/o HTN, HLD, IDDM (insulin pump), recurrent syncope (this is her fifth episode), Medtronic cardiac device implant (2015; placed at [facility] - placed by Dr. Vince Sharma on 02/25/17; [phone]) who was brought in by ambulance after she had a syncopal event at the [facility] dinner last night. Pt admitted to tele obs for syncope. #Syncopal episode most likely cardiogenic -Troponins x 3 -Cardio consult- Dr. Baptiste, pt follows with him as outpt -F/u info on pt medtronic cardiac device implant (info above). Pt has card with her -Orthostatics -tele monitoring #Normocytic anemia, r/o acute blood loss -drop in Hb from ~12 (baseline) to 7.6 -FOBT to r/o overt bleed -F/u CBC, if still 7.6, transfuse 1 unit PRBCs -F/u iron studies, retic count -Hold aspirin #Acute renal failure most likely 2/2 dehydration -Pt started on IVF -F/u UA -F/u repeat Cr #HTN-currently controlled -Hold diovan #IDDM -on insulin pump #DVT prophylaxis -SCD's -Holding Hep SQ as pt possible bleed #F/E/N -IV NS 75 mls/hr -Monitor electrolytes -Diabetic diet #Dispo Observation Visit type - Emergency Visit Emergency Visit: Yes ED Registration Date: 10/18/17 Care time: The patient presented to the Emergency Department on the above date and was hospitalized for further evaluation of their emergent condition. - New Patient This patient is new to me today: Yes Date on this admission: 10/18/17 - Critical Care Critical Care patient: No
--- NOTE | 2017-10-18 06:11 | PN ---
Teaching Attending Note Name of Resident: Gia Ward ATTENDING PHYSICIAN STATEMENT I saw and evaluated the patient. I reviewed the resident's note and discussed the case with the resident. I agree with the resident's findings and plan as documented. SUBJECTIVE: 77 year old female s/p syncopal episode at the [facility]. LOC lasted 10 min per EMT. Denies any preceding complaints. Has long standing history of syncopal episodes and had loop recorder implanted in january 2017. ( [employer] / Medtronic) OBJECTIVE: Vital Signs Temperature 97.8 F 10/17/17 22:01 Pulse Rate 84 10/17/17 22:01 Respiratory Rate 14 10/17/17 22:01 Blood Pressure 109/64 10/17/17 22:01 O2 Sat by Pulse Oximetry (%) 91 L 10/17/17 22:01 CBC, BMP 10/18/17 00:10 10/18/17 00:10 CMP Sodium 142 mmol/L (136-145) 10/18/17 00:10 Potassium 4.8 mmol/L (3.5-5.1) 10/18/17 00:10 Chloride 105 mmol/L (98-107) 10/18/17 00:10 Carbon Dioxide 29 mmol/L (21-32) 10/18/17 00:10 Anion Gap 8 (8-16) 10/18/17 00:10 BUN 20 mg/dL (7-18) H 10/18/17 00:10 Creatinine 1.5 mg/dL (0.55-1.02) H 10/18/17 00:10 Creat Clearance w eGFR 33.58 (>60) 10/18/17 00:10 Random Glucose 125 mg/dL (74-106) H 10/18/17 00:10 Calcium 8.9 mg/dL (8.5-10.1) 10/18/17 00:10 Total Bilirubin 0.3 mg/dL (0.2-1.0) D 10/18/17 00:10 AST 46 U/L (15-37) H 10/18/17 00:10 ALT 38 U/L (12-78) D 10/18/17 00:10 Alkaline Phosphatase 101 U/L (45-117) 10/18/17 00:10 Creatine Kinase 236 IU/L (26-192) H 10/18/17 00:10 Creatine Kinase Index 1.9 % (0.0-5.0) 10/18/17 00:10 CK-MB (CK-2) 4.639 ng/mL (0.5-3.6) H 10/18/17 00:10 Troponin I < 0.02 ng/ml (0.00-0.05) 10/18/17 00:10 Total Protein 7.8 g/dl (6.4-8.2) 10/18/17 00:10 Albumin 3.5 g/dl (3.4-5.0) 10/18/17 00:10 ASSESSMENT AND PLAN: 1. Syncope - suspected cardiogenic - cardiology eval - review loop recorder record - ortho VS - telemetry 2. ARF - dehydration - IVF - ua 3. Anemia - asymptomatic, baseline 12- now drop to 7.6 - repeat in am - transfuse if less then 7.5 - stool occult blood - iron profile - retic count
[2017-10-18] MEDS: SODIUM CHLORIDE 1,000 ML IV SCH (06:21)
[2017-10-18 06:25] LABS: URINE APPEARANCE CLEAR; URINE BILIRUBIN NEGATIVE (NEGATIVE); URINE BLOOD NEGATIVE (NEGATIVE); URINE COLOR LTYELLOW; URINE GLUCOSE (UA) NEGATIVE (NEGATIVE); URINE KETONE NEGATIVE (NEGATIVE); URINE LEUK ESTERASE TRACE (NEGATIVE); URINE NITRITE NEGATIVE (NEGATIVE); URINE PROTEIN NEGATIVE (NEGATIVE); URINE UROBILINOGEN NEGATIVE mg/dL (0.2-1.0)
[2017-10-18 06:35] LABS: URINE HYALINE CAST 4 /lpf; URINE MUCUS RARE
[2017-10-18 08:32] LABS: HEMATOCRIT 37.3 % (32.4-45.2); HEMOGLOBIN 12.1 GM/dL (10.7-15.3); MCH 26.5 pg (25.7-33.7); MCHC 32.4 g/dl (32.0-36.0); MEAN CELL VOLUME 81.6 fl (80-96); MEAN PLT VOLUME 8.4 fl (7.5-11.1); PLATELET COUNT 208 K/MM3 (134-434); RBC 4.57 M/mm3 (3.60-5.2); RDW 16.3 % (11.6-15.6); WHITE BLOOD COUNT 12.3 K/mm3 (4.0-10.0)
[2017-10-18 08:44] LABS: ANION GAP 9 (8-16); BLOOD UREA NITROGEN 20 mg/dL (7-18); CALCIUM 8.6 mg/dL (8.5-10.1); CHLORIDE 107 mmol/L (98-107); CO2 27 mmol/L (21-32); CREATININE 1.3 mg/dL (0.55-1.02); GLUCOSE,RANDOM 168 mg/dL (74-106); MAGNESIUM 2.2 mg/dL (1.8-2.4); PHOSPHOROUS 2.9 mg/dL (2.5-4.9); POTASSIUM 4.3 mmol/L (3.5-5.1); SODIUM 143 mmol/L (136-145)
--- NOTE | 2017-10-18 09:06 | PN ---
Progress Note, Physician - Current Medication List Current Medications: Active Medications Sodium Chloride (Normal Saline -) 1,000 mls @ 75 mls/hr IV ASDIR [facility] Last Admin: 10/18/17 06:21 Dose: 75 mls/hr Pantoprazole Sodium (Protonix -) 40 mg PO DAILY [facility] Rosuvastatin Calcium (Crestor -) 5 mg PO DAILY [facility] - Objective Vital Signs: Vital Signs Temperature 99.3 F 10/18/17 07:25 Pulse Rate 101 H 10/18/17 07:25 Respiratory Rate 18 10/18/17 07:25 Blood Pressure 129/53 10/18/17 07:25 O2 Sat by Pulse Oximetry (%) 97 10/18/17 07:25 Labs: CBC, BMP 10/18/17 07:52 INR, PTT INR 1.08 (0.82-1.09) 10/18/17 00:10 Problem List - Problems (1) Syncope Assessment/Plan: -Troponins x 3 -Cardio consult- -F/u info on pt medtronic cardiac device implant (info above). Pt has card with her -Orthostatics -tele monitoring Code(s): R55 - SYNCOPE AND COLLAPSE Qualifiers: Syncope type: unspecified Qualified Code(s): R55 - Syncope and collapse (2) Anemia Assessment/Plan: HGB STABLE NOW Laboratory Tests 10/18/17 10/18/17 00:10 07:52 Hgb 13.3 12.1 Code(s): D64.9 - ANEMIA, UNSPECIFIED (3) Hypertension Code(s): I10 - ESSENTIAL (PRIMARY) HYPERTENSION (4) IDDM (insulin dependent diabetes mellitus) Code(s): E11.9 - TYPE 2 DIABETES MELLITUS WITHOUT COMPLICATIONS; Z79.4 - COMPOSITION PROFESSOR (CURRENT) USE OF INSULIN
[2017-10-18 09:11] LABS: BASO % 0.6 % (0-2.0); EOS % 1.3 % (0-4.5); HEMATOCRIT 42.2 % (32.4-45.2); HEMOGLOBIN 13.3 GM/dL (10.7-15.3); LYMPH % 18.4 % (8-40); MCH 26.5 pg (25.7-33.7); MCHC 31.4 g/dl (32.0-36.0); MEAN CELL VOLUME 84.4 fl (80-96); MEAN PLT VOLUME 9.4 fl (7.5-11.1); MONO % 5.8 % (3.8-10.2); NEUT % 73.9 % (42.8-82.8); PLATELET COUNT 121 K/MM3 (134-434); RDW 16.9 % (11.6-15.6); WHITE BLOOD COUNT 8.9 K/mm3 (4.0-10.0)
[2017-10-18] MEDS ORDERED: PATIENT'S OWN MEDICATION (NON-FORMULARY) (Insulin Aspart [Novolog] 100 UNIT) SQ SCH (10:00)
--- NOTE | 2017-10-18 10:31 | EKG ---
Test Reason : Blood Pressure : / mmHG Vent. Rate : 081 BPM Atrial Rate : 081 BPM P-R Int : 128 ms QRS Dur : 092 ms QT Int : 392 ms P-R-T Axes : 056 039 118 degrees QTc Int : 455 ms NORMAL SINUS RHYTHM ABNORMAL ECG WHEN COMPARED WITH ECG OF 28-JAN-2017 16:59, NO SIGNIFICANT CHANGE WAS FOUND Confirmed by BREE LOUISE MD ([id number]) on 10/18/2017 10:31:08 AM Referred By: Confirmed By:BREE LOUISE MD
--- NOTE | 2017-10-18 11:01 | CON.CARD ---
Cardiology Consult (text) - Consultation Consultation Note: CC: syncope 77 yo with h/o HTN, HLD, IDDM,and GERD, and recurrent syncope s/p loop recorder placement p/w recurrent syncope. Per report, patient was sitting at [employer] when LOC occurred. Per report, family witnessed 10 min episode of LOC. and exhibited jerky movements periodically during event. Per report, patient had complained of GI distress prior to episode and had skipped dinner. Patient does not recall episode, just remembers waking up in ambulance. s/p IVF in ER. No chest pain, palps, sob, orthopnea, pnd or edema. Denied MIJARES, fever, chills, sweats, recent lightheadedness, N/V/D, recent poor po intake (although didn't eat last night) postictal confusion, or any changes in urinary or bowel function. cards: Dr Baptiste Past Medical History/Past surgical hx: per hpi Social hx: - Alcohol/Substance Use Hx Alcohol Use: No History of Substance Use: reports: None - Smoking History Smoking history: Former smoker fam hx: no premature cad. cancer in brother and sister - unsure of type ros: per hpi Ambulatory Orders Aspirin 81 mg PO DAILY 10/17/17 Esomeprazole Magnesium [Nexium 24Hr] 40 mg PO DAILY 10/17/17 Insulin Aspart [Novolog] 100 unit SQ DAILY 10/17/17 Rosuvastatin Calcium [Crestor] 5 mg PO DAILY 10/17/17 Valsartan [Diovan] 80 mg PO DAILY 10/17/17 Current Medications Sodium Chloride (Normal Saline -) 1,000 mls @ 75 mls/hr IV ASDIR [facility] Last Admin: 10/18/17 06:21 Dose: 75 mls/hr Pantoprazole Sodium (Protonix -) 40 mg PO DAILY [facility] Rosuvastatin Calcium (Crestor -) 5 mg PO DAILY [facility] Vital Signs - 24 hr 10/17/17 10/18/17 10/18/17 22:01 06:21 07:25 Temperature 97.8 F 100.8 F H 99.3 F Pulse Rate 84 Pulse Rate [ 115 H 101 H Right Radial] Respiratory 14 18 18 Rate Blood Pressure 109/64 Blood Pressure 124/68 129/53 [Right Arm] O2 Sat by Pulse 91 L 97 Oximetry (%) 10/18/17 10/18/17 12:24 12:39 Temperature Pulse Rate Pulse Rate [ 74 Right Radial] Pulse Rate [ 106 H Right side Sitting] Pulse Rate [ 108 H Right side Standing] Pulse Rate [ 99 H Right side Supine] Respiratory 14 Rate Blood Pressure Blood Pressure 121/63 [Right Arm] Blood Pressure 115/70 [Right side Sitting] Blood Pressure 118/62 [Right side Standing] Blood Pressure 118/54 [Right side Supine] O2 Sat by Pulse 96 Oximetry (%) Intake & Output 10/16/17 10/17/17 10/18/17 10/19/17 07:59 07:59 07:59 07:59 Weight 160 lb nad, calm jvd flat, neck supple ctab, nl effort rrr nl s1, s2 no mrg nd PMI +bs soft nt nd, no hsm ext without e/c/c + dp/pt no carotid bruits aaox3 no jaundice, diaphoresis. CBC, BMP 10/18/17 07:52 10/18/17 07:52 Laboratory Tests 10/18/17 10/18/17 10/18/17 00:10 06:13 07:52 Total Bilirubin 0.3 D AST 46 H ALT 38 D Alkaline Phosphatase 101 Creatine Kinase 236 H 224 H Creatine Kinase Index 1.9 1.4 CK-MB (CK-2) 4.639 H 3.267 Troponin I < 0.02 < 0.02 < 0.02 Albumin 3.5 ekg: nsr. early r wave progression. anterior/anterolateral twi. similar to priors. tele: nsr/sinus tach head ct: no acute pathology cxr: wnl Echo 12/2016: nl lv/rv size/fn. impaired relaxation. 1+ mac Lexiscan stress MPI 01/2017: nl mpi, nl lvef carotid u/s 12/2016: mod bilateral plaque, no stenosis. 77 yo with h/o HTN, HLD, IDDM,and GERD, and recurrent syncope s/p loop recorder placement p/w recurrent syncope. recurrent syncope - h/o recurrent syncope. Had neuro eval on last admission for syncope (01/2017) --> thought to be vasovagal/neurocardiogenic. She was then sent for loop recorder (implanted 01/2017 at [place], [place]). - loop recorder interrogated today, per report, no arrhythmia despite prolonged episode of LOC. - Orthostatic vitals negative and cre improving s/p IVF --> will defer florinef trial for now, but can be considered as outpatient per outpatient leadership development manager. - ce's neg x 3. EKG without acute ischemic changes. Echo and stress from December /January of this year, unremarkable. - head ct without acute pathology. 12/2016 carotid u/s unremarkable. further neuro/infectious work up at discretion of pmd HTN - BP 109/64 on arrival, improved s/p IVF. bp controlled here off anti- hypertensives, con't to monitor. consider keeping off anti-hypertensives or reducing dose and allowing some permissive hypertension. HL - statin stable from CV perspective. Will need outpatient cards follow up. No need for ongoing telemetry.
[2017-10-18 12:10] LABS: BASO % 0.4 % (0-2.0); EOS % 0.6 % (0-4.5); HEMATOCRIT 38.8 % (32.4-45.2); HEMOGLOBIN 12.6 GM/dL (10.7-15.3); LYMPH % 15.5 % (8-40); MCH 26.6 pg (25.7-33.7); MCHC 32.5 g/dl (32.0-36.0); MEAN CELL VOLUME 81.8 fl (80-96); NEUT % 79.5 % (42.8-82.8); PLATELET COUNT 232 K/MM3 (134-434); RBC 4.74 M/mm3 (3.60-5.2); RDW 16.6 % (11.6-15.6); WHITE BLOOD COUNT 13.9 K/mm3 (4.0-10.0)
[2017-10-18] MEDS: PANTOPRAZOLE 40 MG TABLET (FP) PO SCH (12:24)
[2017-10-18] MEDS: ROSUVASTATIN CA 5 MG TABLET (FP) PO SCH (12:24)
[2017-10-19 06:06] LABS: SERUM IRON SATURATION 12 % (15-55); TOTAL IRON BINDING CAPACITY 258 ug/dL (250-450); UIBC 226 ug/dL (118-369)
[2017-10-19] MEDS: SODIUM CHLORIDE 1,000 ML IV SCH (06:32)
[2017-10-19 07:37] LABS: BASO % 0.4 % (0-2.0); EOS % 3.5 % (0-4.5); HEMATOCRIT 35.1 % (32.4-45.2); HEMOGLOBIN 11.4 GM/dL (10.7-15.3); LYMPH % 25.3 % (8-40); MCH 27.1 pg (25.7-33.7); MCHC 32.5 g/dl (32.0-36.0); MEAN CELL VOLUME 83.3 fl (80-96); MEAN PLT VOLUME 8.4 fl (7.5-11.1); NEUT % 64.8 % (42.8-82.8); PLATELET COUNT 186 K/MM3 (134-434); RBC 4.21 M/mm3 (3.60-5.2); RDW 16.5 % (11.6-15.6); WHITE BLOOD COUNT 7.6 K/mm3 (4.0-10.0)
[2017-10-19 07:53] LABS: ALBUMIN 2.8 g/dl (3.4-5.0); ANION GAP 7 (8-16); BLOOD UREA NITROGEN 20 mg/dL (7-18); CALCIUM 8.1 mg/dL (8.5-10.1); CHLORIDE 110 mmol/L (98-107); CO2 27 mmol/L (21-32); GLUCOSE,RANDOM 91 mg/dL (74-106); POTASSIUM 4.1 mmol/L (3.5-5.1); SGOT/AST 28 U/L (15-37); SGPT/ALT 31 U/L (12-78); SODIUM 144 mmol/L (136-145)
[2017-10-19 07:55] LABS: ALK PHOS 80 U/L (45-117); BILIRUBIN,TOTAL 0.5 mg/dL (0.2-1.0); CREATININE 1.2 mg/dL (0.55-1.02); TOT PROT 6.3 g/dl (6.4-8.2)
[2017-10-19] MEDS ORDERED: PANTOPRAZOLE 40 MG TABLET (FP) ONE (08:53)
[2017-10-19] MEDS: PANTOPRAZOLE 40 MG TABLET (FP) PO SCH (09:05)
[2017-10-19] MEDS: ROSUVASTATIN CA 5 MG TABLET (FP) PO SCH (09:05)
--- NOTE | 2017-10-19 10:09 | PN ---
Progress Note, Physician - Current Medication List Current Medications: Active Medications Sodium Chloride (Normal Saline -) 1,000 mls @ 75 mls/hr IV ASDIR [facility] Last Admin: 10/19/17 06:32 Dose: 75 mls/hr Pantoprazole Sodium (Protonix -) 40 mg PO DAILY [facility] Last Admin: 10/19/17 09:05 Dose: 40 mg Rosuvastatin Calcium (Crestor -) 5 mg PO DAILY [facility] Last Admin: 10/19/17 09:05 Dose: Not Given - Objective Vital Signs: Vital Signs Temperature 98.3 F 10/19/17 06:58 Pulse Rate 81 10/19/17 06:58 Respiratory Rate 18 10/19/17 06:58 Blood Pressure 127/65 10/19/17 06:58 O2 Sat by Pulse Oximetry (%) 96 10/19/17 06:58 Labs: CBC, BMP 10/19/17 07:11 10/19/17 07:08 INR, PTT INR 1.08 (0.82-1.09) 10/18/17 00:10 Problem List - Problems (1) Syncope Assessment/Plan: -Troponins x 3 -Cardio consult- -F/u info on pt medtronic cardiac device implant (info above). Pt has card with her -Orthostatics -tele monitoring Code(s): R55 - SYNCOPE AND COLLAPSE Qualifiers: Syncope type: unspecified Qualified Code(s): R55 - Syncope and collapse (2) Anemia Assessment/Plan: HGB STABLE NOW Laboratory Tests 10/18/17 10/18/17 10/19/17 07:52 11:50 07:11 Hgb 12.1 12.6 11.4 Code(s): D64.9 - ANEMIA, UNSPECIFIED (3) Hypertension Assessment/Plan: Vital Signs Period Temp Pulse Resp BP Sys/Molina Pulse Ox Last 24 Hr 98.2 F-98.5 F 74-108 14-18 115-130/54-71 96-98 Code(s): I10 - ESSENTIAL (PRIMARY) HYPERTENSION (4) IDDM (insulin dependent diabetes mellitus) Assessment/Plan: Laboratory Tests 10/18/17 10/19/17 13:13 07:11 POC Glucometer 122.64744 110.75708 Code(s): E11.9 - TYPE 2 DIABETES MELLITUS WITHOUT COMPLICATIONS; Z79.4 - FCI (CURRENT) USE OF INSULIN
[2017-10-19 14:30] LABS: HEMATOCRIT 36.5 % (32.4-45.2); HEMOGLOBIN 11.8 GM/dL (10.7-15.3); MCH 26.7 pg (25.7-33.7); MCHC 32.3 g/dl (32.0-36.0); MEAN CELL VOLUME 82.8 fl (80-96); MEAN PLT VOLUME 8.2 fl (7.5-11.1); PLATELET COUNT 207 K/MM3 (134-434); RBC 4.42 M/mm3 (3.60-5.2); RDW 16.6 % (11.6-15.6); WHITE BLOOD COUNT 7.9 K/mm3 (4.0-10.0)
[2017-10-19 14:50] LABS: ALBUMIN 3.1 g/dl (3.4-5.0); ALK PHOS 82 U/L (45-117); ANION GAP 7 (8-16); BILIRUBIN,TOTAL 0.5 mg/dL (0.2-1.0); BLOOD UREA NITROGEN 19 mg/dL (7-18); CHLORIDE 109 mmol/L (98-107); CO2 26 mmol/L (21-32); CREATININE 1.2 mg/dL (0.55-1.02); GLUCOSE,RANDOM 190 mg/dL (74-106); POTASSIUM 3.9 mmol/L (3.5-5.1); SGOT/AST 25 U/L (15-37); SGPT/ALT 32 U/L (12-78); SODIUM 142 mmol/L (136-145); TOT PROT 6.7 g/dl (6.4-8.2)
--- NOTE | 2017-10-20 08:27 | DS ---
Physical Examination Vital Signs: Vital Signs Temperature 98.2 F 10/20/17 02:00 Pulse Rate 80 10/20/17 06:00 Respiratory Rate 18 10/20/17 06:00 Blood Pressure 151/82 10/20/17 06:00 O2 Sat by Pulse Oximetry (%) 95 10/19/17 10:00 Cardiovascular: Yes: Regular Rate and Rhythm Respiratory: Yes: Regular, CTA Bilaterally Gastrointestinal: Yes: Normal Bowel Sounds, Soft Labs: CBC, BMP 10/19/17 14:15 10/19/17 14:15 Discharge Summary Reason For Visit: SYNCOPE Current Active Problems Anemia (Acute) Syncope (Acute) Hospital Course: 77 y/o F with h/o HTN, HLD, IDDM (insulin pump), recurrent syncope (this is her fifth episode), Medtronic cardiac device implant (2015; placed at [place]) who was brought in by ambulance after she had a syncopal [facility]. As per pt, she just remembers sitting down, and was later told she had LOC. Once she opened her eyes, she was being carried away on a stretcher to the ambulance. Pt does not know how long the episode lasted for. Denied MIJARES, fever, chills, lightheadedness, palpitations, N/V/D, postictal confusion, or any changes in urinary or bowel function. Pt states that this is the fifth time she has had a syncopal event. The first time it happened was in 2011, she was in a warm and stuffy room. She subsequently had events in 2014 and 2016 in public areas such as the grocery store. ER course was notable for: (1) Hb 7.6 , baseline 12 (2) first troponin: negative (3) Cr 1.5 Recent Travel: none PAST MEDICAL HISTORY: HTN, HLD, IDDM (insulin pump), recurrent syncope (this is her fifth episode), Medtronic cardiac device implant (2016; placed at [place]. placed by Dr. Vince Sharma on 02/25/17; [phone]) PAST SURGICAL HISTORY: none Social History: Smokin yr smoking hx - 1 ppd Alcohol: denies Drugs: denies Family History: cancer in brother and sister - unsure of type Allergies No Known Allergies Allergy (Verified 10/17/17 22:01) Problems (1) Syncope Assessment/Plan: -Troponins x 3 -Cardio consult-noted -F/u info on pt medtronic cardiac device implant (info above). Pt has card with her -Orthostatics -tele monitoring Code(s): R55 - SYNCOPE AND COLLAPSE Qualifiers: Syncope type: unspecified Qualified Code(s): R55 - Syncope and collapse (2) Anemia Assessment/Plan: HGB STABLE NOW Laboratory Tests 10/18/17 10/18/17 10/19/17 07:52 11:50 07:11 Hgb 12.1 12.6 11.4 Code(s): D64.9 - ANEMIA, UNSPECIFIED (3) Hypertension Assessment/Plan: Vital Signs Period Temp Pulse Resp BP Sys/Molina Pulse Ox Last 24 Hr 98.2 F-98.5 F 74-108 14-18 115-130/54-71 96-98 Code(s): I10 - ESSENTIAL (PRIMARY) HYPERTENSION (4) IDDM (insulin dependent diabetes mellitus) Assessment/Plan: Laboratory Tests 10/18/17 10/19/17 13:13 07:11 POC Glucometer 122.68151 [id number] Code(s): E11.9 - TYPE 2 DIABETES MELLITUS WITHOUT COMPLICATIONS; Z79.4 - LOTUS NOTES DEVELOPER (CURRENT) USE OF INSULIN Condition: Stable - Instructions Referrals: Jaime Lopez MD [Primary Care Provider] - 1 Week - Home Medications Comprehensive Discharge Medication List: Ambulatory Orders Aspirin 81 mg PO DAILY 10/17/17 Esomeprazole Magnesium [Nexium 24Hr] 40 mg PO DAILY 10/17/17 Insulin Aspart [Novolog] 100 unit SQ DAILY 10/17/17 Rosuvastatin Calcium [Crestor] 5 mg PO DAILY 10/17/17 Valsartan [Diovan] 80 mg PO DAILY 10/17/17
[2017-10-20 08:59] LABS: HEMATOCRIT 36.3 % (32.4-45.2); HEMOGLOBIN 11.8 GM/dL (10.7-15.3); MCH 26.6 pg (25.7-33.7); MCHC 32.5 g/dl (32.0-36.0); MEAN PLT VOLUME 7.7 fl (7.5-11.1); PLATELET COUNT 207 K/MM3 (134-434); RBC 4.42 M/mm3 (3.60-5.2); RDW 16.6 % (11.6-15.6); WHITE BLOOD COUNT 6.4 K/mm3 (4.0-10.0)
[2017-10-20 09:30] LABS: ANION GAP 7 (8-16); BILIRUBIN,TOTAL 0.4 mg/dL (0.2-1.0); BLOOD UREA NITROGEN 20 mg/dL (7-18); CHLORIDE 109 mmol/L (98-107); CO2 26 mmol/L (21-32); CREATININE 1.3 mg/dL (0.55-1.02); GLUCOSE,RANDOM 152 mg/dL (74-106); POTASSIUM 4.1 mmol/L (3.5-5.1); SGOT/AST 24 U/L (15-37); SGPT/ALT 32 U/L (12-78); SODIUM 142 mmol/L (136-145); TOT PROT 6.7 g/dl (6.4-8.2)
[2017-10-20 09:31] LABS: ALK PHOS 85 U/L (45-117)
[2017-10-20] MEDS: PANTOPRAZOLE 40 MG TABLET (FP) PO SCH (09:42)
[2017-10-20] MEDS: ROSUVASTATIN CA 5 MG TABLET (FP) PO SCH (09:43)
[2017-10-20] MEDS ORDERED: levETIRAcetam 250 MG TABLET (FP) PO SCH (10:45)
--- NOTE | 2017-10-20 10:47 | CONSULT ---
Consult - text type - Consultation Consultation Note: NEUROLOGY CONSULTATION is greatly appreciated: This 77 yo RH woman lives alone. Retired [place] [employer]. PMH sig for HTN, Chol, DM. On glucose pump, divan, crestor. Patient has had 5 episodes of unexplained LOC since 2011. Admitted here 4 times and [place] once. Patient is amnestic for all of these events. 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 After the fourth event in January she was sent to [facility] [place] for implantable loop recorder (See cardiology consultation of Dr. Kiarra Romero). Now admitted after a fifth, witnessed event at a social [employer] celebrating on Tuesday evening. Patient last recalls "a strange feeling in her stomach" described as "like eating spicy food." Her next recollection is waking up in the social gore "with EMT all around, like usual." She claims she was well-oriented. However, witnesses described LOC for 10 mins! with episodic twitching and shaking. No incontinence. No tongue biting. Unfortunately, her mental status, after the episode, is not described. In ER: Pt was awake and alert with stable BG and VS WBC was 12.3 and 13.9 on 10/18 in the ER without fever or signs of infection. Rapidly normalized. CT of head (reviewed) mild atrophy, especially right anterior temporal region with scattered microvascular changes. Loop monitor showed normal cardiac rhythm throughout the episode! HOSSEIN: No evidence of head injury. No bruits. Cor reg. NEURO: MS/Speech: Normal CN II-XII: Normal aside from some stereotyped lower facial movements (L>R). Motor: No drift. Intermittent sustention tremor vs myoclonic jerks ( L>R). Normal strenth, bulk, tone and reflexes. Toes downgoing. Coord: No FTN dystaxia Sensory: Normal. Romberg - Gait: Slightly stiff and sl wide-based. IMP: Normal exam Probable Seizure disorder. The length of LOC is quite prolonged for cardiogenic syncope and is more c/w seizure/post-ictal or hypoglycemia. The transient leukocytosis also supports seizure. Plan: Start Levetiracetam 250 mg PO q 12 hrs x 1 week then 500 mg PO BID. Neuro follow-up as out patient for EEG, possible ambulatory EEG. Thank you very much, Shoaib Celaya MD
--- NOTE | 2017-10-20 11:40 | PN ---
Progress Note (short form) - Note Progress Note: s: no cp sob palps dizzy o: Vital Signs Period Temp Pulse Resp BP Sys/Molina Pulse Ox Last 24 Hr 98 F-98.7 F 80-87 16-22 143-162/75-97 nad, calm jvd flat, neck supple ctab, nl effort rrr nl s1, s2 no mrg +bs soft nt nd, no hsm ext without e/c/c aaox3 no jaundice, diaphoresis Current Medications Generic Name Dose Route Start Last Admin Trade Name Freq PRN Reason Stop Dose Admin Levetiracetam 250 mg 10/20/17 10:45 Keppra - PO BID MACIEL Pantoprazole Sodium 40 mg 10/18/17 10:00 10/20/17 09:42 Protonix - PO 40 mg DAILY MACIEL Administration Rosuvastatin Calcium 5 mg 10/18/17 10:00 10/20/17 09:43 Crestor - PO 5 mg DAILY MACIEL Administration CBC, BMP 10/20/17 08:40 10/20/17 08:40 ekg: nsr. early r wave progression. anterior/anterolateral twi. similar to priors. tele: sr head ct: no acute pathology cxr: wnl echo 10/2017: nl lv/rv, no sig valve path Echo 12/2016: nl lv/rv size/fn. impaired relaxation. 1+ mac Lexiscan stress MPI 01/2017: nl mpi, nl lvef carotid u/s 12/2016: mod bilateral plaque, no stenosis. a/p: 77 yo with h/o HTN, HLD, IDDM,and GERD, and recurrent syncope s/p loop recorder placement p/w recurrent syncope. recurrent syncope - h/o recurrent syncope. Had neuro eval on last admission for syncope (01/2017) --> thought to be vasovagal/neurocardiogenic. She was then sent for loop recorder (implanted 01/2017 at [facility], [employer]). - loop recorder interrogated here, per report, no arrhythmia/bradycardia despite prolonged episode of LOC. - Orthostatic vitals negative and cr improving s/p IVF --> will defer florinef trial for now, but can be considered as outpatient per outpatient laborer concrete paving. - ce's neg x 3. EKG without acute ischemic changes. Echo and stress from December /January of this year, unremarkable. - head ct without acute pathology. 12/2016 carotid u/s unremarkable. - holter benign here - neuro following, possible seizures? HTN -stable off meds HL - statin stable for dc from CV perspective. Will need outpatient cards follow up 2-4 weeks
--- NOTE | 2017-10-20 12:27 | HOL ---
Hook-up date: 2017-10-18 10:45:00 Duration: 20:15:00 Test Indications: SYNCOPE Medications: 25915 QRS complexes 66 Ventricular ectopics which represent <1 % of total QRS comp. 240 Supraventricular ectopics which represent <1 % of total QRS comp. * Paced QRS complexs which represent % of total QRS comp. 1 % of Time Classified as Noise VENTRICULAR ECTOPY 66 Isolated 0 Bigeminal Cycles 0 Couplets 0 Runs 0 Beats in Runs * Beats LONGEST at * BPM at :: -- * Beats FASTEST at * BPM at :: -- SUPRAVENTRICULAR ECTOPY 218 Isolated 9 Couplets 1 Runs 4 Beats in Runs 4 Beats LONGEST at 130 BPM at 16:42:05 2017-10-18 4 Beats FASTEST at 130 BPM at 16:42:05 2017-10-18 HEART RATES 59 MIN at 06:16:22 2017-10-19 81 AVG 106 MAX at 10:46:57 2017-10-18 LONGEST RR 1.144 secs at 02:46:55 2017-10-19 DURATION OF SCAN 20 HOURS AND 15 MINUTES DUE TO ARTIFACT 1. Baseline sinus rhythm with avg hr 81 and range 59-106. 2. No significant bradycardia/pauses. 3. Rare pvcs and pacs. 4 beat atrial run. 4. No vt, vf, afib, aflutter. 5. No diary submitted. SCANNED BY: ERIC 10/19/17 Confirmed by MARGARET HAGEN MD ([id number]) on 10/20/2017 12:27:05 PM Referred By: Ed COLE Overread By: MARGARET HAGEN MD
[2017-10-20 14:18] VITALS: BP 163/75; PULSE 75; TEMP 98.6
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
== END 2017-10-20 17:06 | disposition home or self-care (01) ==
LOC: JER 21:41 → JERBED 10-18 03:40 → J4W 10-19 18:00 → JERBED 10-19 18:00 → J4W 10-19 20:37
PROVIDERS: ADMIT Family Medicine; ATTEND Family Medicine
PROC: 3E0337Z Introduction of Electrolytic and Water Balance Substance into Peripheral Vein, Percutaneous Approach (ICD-10-PCS; principal; 2017-10-18)
DX: R55 Syncope and collapse (principal); D64.9 Anemia, unspecified; I10 Essential (primary) hypertension; E78.5 Hyperlipidemia, unspecified; E11.9 Type 2 diabetes mellitus without complications; K21.9 Gastro-esophageal reflux disease without esophagitis; N17.9 Acute kidney failure, unspecified; Z79.4 Long term (current) use of insulin; Z96.41 Presence of insulin pump (external) (internal); Z79.82 Long term (current) use of aspirin; Z87.891 Personal history of nicotine dependence
CPT/HCPCS: 36415; 70450-TC; 71045-TC; 80048; 80053; 80061; 81003; 81015; 82550; 82553; 82607; 82962; 83540; 83550; 83721; 83735; 84100; 84443; 84484; 85025; 85027; 85044; 85610; 93005; 93010; 93225; 93226; 93306-TC; 99285-25; G0378

== ENCOUNTER 2017-12-14 21:04 | Observation (INO) | payer OTHER ==
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
[2017-12-14 21:33] VITALS: BMI 25.7
[2017-12-14 23:37] LABS: BASO % 0.4 % (0-2.0); EOS % 1.1 % (0-4.5); HEMATOCRIT 40.6 % (32.4-45.2); HEMOGLOBIN 13.3 GM/dL (10.7-15.3); INR 1.09 (0.82-1.09); LYMPH % 19.8 % (8-40); MCH 27.3 pg (25.7-33.7); MCHC 32.8 g/dl (32.0-36.0); MEAN CELL VOLUME 83.1 fl (80-96); MEAN PLT VOLUME 8.9 fl (7.5-11.1); MONO % 8.2 % (3.8-10.2); NEUT % 70.5 % (42.8-82.8); PLATELET COUNT 250 K/MM3 (134-434); PROTHROMBIN TIME (PATIENT) 12.3 SEC (9.98-11.88); RBC 4.89 M/mm3 (3.60-5.2); RDW 18.7 % (11.6-15.6)
[2017-12-15 01:42] LABS: ALBUMIN 3.6 g/dl (3.4-5.0); ALK PHOS 86 U/L (45-117); ANION GAP 12 (8-16); BILIRUBIN,TOTAL 0.5 mg/dL (0.2-1.0); BLOOD UREA NITROGEN 23 mg/dL (7-18); CALCIUM 9.2 mg/dL (8.5-10.1); CHLORIDE 105 mmol/L (98-107); CO2 26 mmol/L (21-32); CREATININE 1.1 mg/dL (0.55-1.02); GLUCOSE,RANDOM 94 mg/dL (74-106); POTASSIUM 4.2 mmol/L (3.5-5.1); SGOT/AST 20 U/L (15-37); SGPT/ALT 18 U/L (12-78); SODIUM 143 mmol/L (136-145); TOT PROT 7.6 g/dl (6.4-8.2)
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
[2017-12-15] MEDS ORDERED: INSULIN SLIDING SCALE (NOVOLOG) 1 VIAL SQ SCH ×3 (07:00→22:00)
[2017-12-15 07:24] LABS: BASO % 0.4 % (0-2.0); EOS % 1.6 % (0-4.5); HEMATOCRIT 36.8 % (32.4-45.2); LYMPH % 35.1 % (8-40); MCH 26.9 pg (25.7-33.7); MCHC 32.7 g/dl (32.0-36.0); MEAN CELL VOLUME 82.3 fl (80-96); MEAN PLT VOLUME 8.3 fl (7.5-11.1); MONO % 7.3 % (3.8-10.2); NEUT % 55.6 % (42.8-82.8); PLATELET COUNT 224 K/MM3 (134-434); RBC 4.47 M/mm3 (3.60-5.2); WHITE BLOOD COUNT 7.8 K/mm3 (4.0-10.0)
[2017-12-15] MEDS: INSULIN SLIDING SCALE (NOVOLOG) 1 VIAL SQ SCH ×3 (07:36→17:51)
[2017-12-15 07:50] LABS: ANION GAP 12 (8-16); BLOOD UREA NITROGEN 21 mg/dL (7-18); CALCIUM 8.7 mg/dL (8.5-10.1); CHLORIDE 109 mmol/L (98-107); CO2 25 mmol/L (21-32); GLUCOSE,RANDOM 70 mg/dL (74-106); MAGNESIUM 2.5 mg/dL (1.8-2.4); SODIUM 146 mmol/L (136-145)
[2017-12-15 07:55] LABS: CREATININE 0.9 mg/dL (0.55-1.02); PHOSPHOROUS 3.7 mg/dL (2.5-4.9)
[2017-12-15] MEDS: ROSUVASTATIN CA 5 MG TABLET (FP) PO SCH (09:17)
[2017-12-15] MEDS: PANTOPRAZOLE 40 MG TABLET (FP) PO SCH (09:17)
[2017-12-15] MEDS: ASPIRIN 81 MG CHEWABLE TABLETS PO SCH (09:17)
[2017-12-15] MEDS: VALSARTAN 80 MG TABLET (UD) PO SCH (09:17)
--- NOTE | 2017-12-15 10:33 | PN ---
Progress Note, Physician Chief Complaint: patient admitted for syncopal episode she was at [employer] store where she starting feeling nauseous and then she passed out and the next thing she remembers is waking up and seeing the EMT per patient she had similar episode before in oct,she has a loop recorder which was interrogated in october and found to be normal. seen by cardiology in ER - - Current Medication List Current Medications: Active Medications Aspirin (Asa -) 81 mg PO DAILY [facility] Last Admin: 12/15/17 09:17 Dose: 81 mg Insulin Aspart (Novolog Vial Sliding Scale -) 1 vial SQ TIDAC MACIEL PRN Reason: Protocol Last Admin: 12/15/17 07:36 Dose: Not Given Insulin Aspart (Novolog Vial Sliding Scale -) 1 vial SQ HS MACIEL PRN Reason: Protocol Pantoprazole Sodium (Protonix -) 40 mg PO DAILY [facility] Last Admin: 12/15/17 09:17 Dose: 40 mg Rosuvastatin Calcium (Crestor -) 5 mg PO DAILY [facility] Last Admin: 12/15/17 09:17 Dose: 5 mg Valsartan (Diovan -) 80 mg PO DAILY [facility] Last Admin: 12/15/17 09:17 Dose: 80 mg - Objective Vital Signs: Vital Signs Temperature 98.1 F 12/15/17 07:08 Pulse Rate 77 12/15/17 07:08 Respiratory Rate 18 12/15/17 07:08 Blood Pressure 136/63 12/15/17 07:08 O2 Sat by Pulse Oximetry (%) 95 12/15/17 07:08 Constitutional: Yes: Calm Cardiovascular: Yes: Regular Rate and Rhythm, S1, S2 Respiratory: Yes: CTA Bilaterally Gastrointestinal: Yes: Normal Bowel Sounds, Soft Edema: No Neurological: Yes: Alert, Oriented Labs: CBC, BMP 12/15/17 07:09 12/15/17 07:09 INR, PTT INR 1.09 (0.82-1.09) 12/14/17 22:40 Problem List - Problems (1) Syncope Assessment/Plan: seen by cardiology to get loop recorder interrogated today check orthostatic tele ekg Code(s): R55 - SYNCOPE AND COLLAPSE Qualifiers: Syncope type: unspecified Qualified Code(s): R55 - Syncope and collapse (2) HLD (hyperlipidemia) Assessment/Plan: statin Code(s): E78.5 - HYPERLIPIDEMIA, UNSPECIFIED (3) IDDM (insulin dependent diabetes mellitus) Assessment/Plan: endocrine consult insulin pump bgm sliding scale will start levemir Code(s): E11.9 - TYPE 2 DIABETES MELLITUS WITHOUT COMPLICATIONS; Z79.4 - SALESPERSON AUTOMOBILES (CURRENT) USE OF INSULIN
--- NOTE | 2017-12-15 13:02 | CON.CARD ---
Cardiology Consult (text) - Consultation Consultation Note: CC: syncope hpi: 77 yo f with h/o HTN, HLD, IDDM,and GERD, and recurrent syncope s/p loop recorder placement p/w recurrent syncope. Pt was standing in phone store for 2 hours. Got nausea and then fainted, caught by someone else so no injuries. Next pt remembers was being on floor with EMS. Per family member who was present, no seizure activity, no incontinence. No cp, sob, palps, pnd, orthopnea, le edema, dizzy. Feels well now. cards: Dr Baptiste Past Medical History/Past surgical hx: per hpi Social hx: - Alcohol/Substance Use Hx Alcohol Use: No History of Substance Use: reports: None - Smoking History Smoking history: Former smoker fam hx: no premature cad. cancer in brother and sister - unsure of type ros: per hpi; no fever, cough, lara, vision changes, wt loss, gib, hematuria, dysuria, muscle pain Ambulatory Orders Home Medications Medication Instructions Recorded Aspirin 81 mg PO DAILY 10/17/17 Esomeprazole Magnesium [Nexium 40 mg PO DAILY 10/17/17 24Hr] Insulin Aspart [Novolog] 100 unit SQ DAILY 10/17/17 Rosuvastatin Calcium [Crestor] 5 mg PO DAILY 10/17/17 Valsartan [Diovan] 80 mg PO DAILY 12/14/17 Vital Signs Period Temp Pulse Resp BP Sys/Molina Pulse Ox Last 24 Hr 97.8 F-98.6 F 74-81 16-20 134-169/63-84 95-99 nad, calm jvd flat, neck supple ctab, nl effort rrr nl s1, s2 no mrg nd PMI +bs soft nt nd, no hsm ext without e/c/c + dp/pt no carotid bruits aaox3 no jaundice, diaphoresis. Laboratory Last Values WBC 7.8 K/mm3 (4.0-10.0) 12/15/17 07:09 RBC 4.47 M/mm3 (3.60-5.2) 12/15/17 07:09 Hgb 12.0 GM/dL (10.7-15.3) 12/15/17 07:09 Hct 36.8 % (32.4-45.2) 12/15/17 07:09 MCV 82.3 fl (80-96) 12/15/17 07:09 MCH 26.9 pg (25.7-33.7) 12/15/17 07:09 MCHC 32.7 g/dl (32.0-36.0) 12/15/17 07:09 RDW 18.0 % (11.6-15.6) H 12/15/17 07:09 Plt Count 224 K/MM3 (134-434) 12/15/17 07:09 MPV 8.3 fl (7.5-11.1) 12/15/17 07:09 Neutrophils % 55.6 % (42.8-82.8) D 12/15/17 07:09 Lymphocytes % 35.1 % (8-40) D 12/15/17 07:09 Monocytes % 7.3 % (3.8-10.2) 12/15/17 07:09 Eosinophils % 1.6 % (0-4.5) 12/15/17 07:09 Basophils % 0.4 % (0-2.0) 12/15/17 07:09 PT with INR 12.30 SEC (9.98-11.88) H 12/14/17 22:40 INR 1.09 (0.82-1.09) 12/14/17 22:40 Sodium 146 mmol/L (136-145) H 12/15/17 07:09 Potassium 4.0 mmol/L (3.5-5.1) 12/15/17 07:09 Chloride 109 mmol/L (98-107) H 12/15/17 07:09 Carbon Dioxide 25 mmol/L (21-32) 12/15/17 07:09 Anion Gap 12 (8-16) 12/15/17 07:09 BUN 21 mg/dL (7-18) H 12/15/17 07:09 Creatinine 0.9 mg/dL (0.55-1.02) 12/15/17 07:09 Creat Clearance w eGFR 48.04 (>60) 12/15/17 00:24 POC Glucometer 131.25481 UNITS (80-120) 12/15/17 11:59 Random Glucose 70 mg/dL (74-106) L 12/15/17 07:09 Calcium 8.7 mg/dL (8.5-10.1) 12/15/17 07:09 Phosphorus 3.7 mg/dL (2.5-4.9) 12/15/17 07:09 Magnesium 2.5 mg/dL (1.8-2.4) H 12/15/17 07:09 Total Bilirubin 0.5 mg/dL (0.2-1.0) D 12/15/17 00:24 AST 20 U/L (15-37) 12/15/17 00:24 ALT 18 U/L (12-78) 12/15/17 00:24 Alkaline Phosphatase 86 U/L (45-117) 12/15/17 00:24 Creatine Kinase 173 IU/L (26-192) 12/15/17 07:09 Creatine Kinase Index 1.8 % (0.0-5.0) 12/15/17 07:09 CK-MB (CK-2) 3.184 ng/mL (0.5-3.6) 12/15/17 07:09 Troponin I < 0.02 ng/ml (0.00-0.05) 12/15/17 07:09 B-Natriuretic Peptide 71.39 pg/ml (5-450) 12/15/17 00:24 Total Protein 7.6 g/dl (6.4-8.2) 12/15/17 00:24 Albumin 3.6 g/dl (3.4-5.0) 12/15/17 00:24 ekg: nsr. nl intervals, anterior/anterolateral twi. similar to priors. cxr: wnl echo 10/2017: nl lv/rv, no sig valve path Echo 12/2016: nl lv/rv size/fn. impaired relaxation. 1+ mac Lexiscan stress MPI 01/2017: nl mpi, nl lvef carotid u/s 12/2016: mod bilateral plaque, no stenosis. a/p: 77 yo with h/o HTN, HLD, IDDM,and GERD, and recurrent syncope s/p loop recorder placement p/w recurrent syncope. recurrent syncope - h/o recurrent syncope. Had neuro eval on prior admits for syncope --> thought to be vasovagal/neurocardiogenic. She was then sent for loop recorder (implanted 01/2017 at [place], [employer]). - loop recorder interrogated when had syncope 10/2017--> no arrhythmia/ bradycardia despite prolonged episode of LOC. - Orthostatic vitals negative - no signs acs. Recent echo and stress unremarkable. - head ct without acute pathology. 12/2016 carotid u/s unremarkable. - will interrogate loop recorder today. if benign then ok for dc with trial of florinef 0.1 mg qday and f/u 2weeks HTN -stable off meds HL - statin
--- NOTE | 2017-12-15 13:06 | EKG ---
Test Reason : Blood Pressure : / mmHG Vent. Rate : 094 BPM Atrial Rate : 094 BPM P-R Int : 124 ms QRS Dur : 082 ms QT Int : 352 ms P-R-T Axes : 049 056 106 degrees QTc Int : 440 ms NORMAL SINUS RHYTHM ABNORMAL ECG WHEN COMPARED WITH ECG OF 17-OCT-2017 22:09, NO SIGNIFICANT CHANGE WAS FOUND Confirmed by MARGARET HAGEN MD ([id number]) on 12/15/2017 1:06:02 PM Referred By: Confirmed By:MARGARET HAGEN MD
--- NOTE | 2017-12-15 23:03 | CONSULT ---
Consult Consult Specialty:: endocrine Referred by:: tahira oakes NP Reason for Consultation:: diabetes mellitus uncontrolled/ sp syncope - History of Present Illness Chief Complaint: passed out "not from low sugar" History of Present Illness: 77 year old female with a significant PMH of syncope, DM, HTN who presented to the ED s/p syncopal episode while out shopping. She was caught by a bystander and did not hit the floor. The bystander happened to be an EMT and he reported that at first he was unable to locate her pulse and then when he did it was very weak. EMS reported a BGM of 114 upon arrival. Pt does not recall the actual syncopal episode but does remember waking up with ems around her.she states it was not my low sugar,114mg/dl,she has had prior syncopal episode she feels were weather related cold to hot or hot to cold environment.she denies fever chills,nausea or vomiting i - Past Medical History Cardio/Vascular: Yes: HTN, Hyperlipdemia Gastrointestinal: Yes: GERD ...: No Endocrine: Yes: Diabetes Mellitus - Past Surgical History Past Surgical History: Yes: None - Alcohol/Substance Use Hx Alcohol Use: No History of Substance Use: reports: None - Smoking History Smoking history: Former smoker Have you smoked in the past 12 months: No Aproximately how many cigarettes per day: 0 Home Medications - Allergies Allergies/Adverse Reactions: Allergies Allergy/AdvReac Type Severity Reaction Status Date / Time No Known Allergies Allergy Verified 12/14/17 21:30 - Home Medications Home Medications: Ambulatory Orders Aspirin 81 mg PO DAILY 10/17/17 Esomeprazole Magnesium [Nexium 24Hr] 40 mg PO DAILY 10/17/17 Insulin Aspart [Novolog] 100 unit SQ DAILY 10/17/17 Rosuvastatin Calcium [Crestor] 5 mg PO DAILY 10/17/17 Valsartan [Diovan] 80 mg PO DAILY 12/14/17 Review of Systems - Review of Systems Constitutional: reports: Weakness Eyes: reports: No Symptoms HENT: reports: No Symptoms Neck: reports: No Symptoms Cardiovascular: reports: No Symptoms Respiratory: reports: Exercise Intolerance, SOB on Exertion Gastrointestinal: reports: Bloating Genitourinary: reports: No Symptoms Breasts: reports: No Symptoms Reported Musculoskeletal: reports: No Symptoms Integumentary: reports: No Symptoms Neurological: reports: No Symptoms Endocrine: reports: No Symptoms Physical Exam Vital Signs: Vital Signs Temperature 99.1 F 12/15/17 21:28 Pulse Rate 78 12/15/17 21:28 Respiratory Rate 20 12/15/17 21:28 Blood Pressure 140/54 12/15/17 21:28 O2 Sat by Pulse Oximetry (%) 98 12/15/17 22:11 Constitutional: Yes: Calm Eyes: Yes: EOM Intact HENT: Yes: Normocephalic Neck: Yes: Trachea Midline Cardiovascular: Yes: Regular Rate and Rhythm Respiratory: Yes: CTA Bilaterally Gastrointestinal: Yes: Normal Bowel Sounds ...Rectal Exam: Yes: Deferred Renal/: Yes: WNL Breast(s): Yes: WNL Musculoskeletal: Yes: WNL Extremities: Yes: WNL Edema: No Integumentary: Yes: WNL Neurological: Yes: Alert, Oriented Labs: CBC, BMP 12/15/17 07:09 12/15/17 07:09 Problem List - Problems (1) Syncope Code(s): R55 - SYNCOPE AND COLLAPSE Qualifiers: Syncope type: unspecified Qualified Code(s): R55 - Syncope and collapse (2) Hypertension Code(s): I10 - ESSENTIAL (PRIMARY) HYPERTENSION (3) IDDM (insulin dependent diabetes mellitus) Code(s): E11.9 - TYPE 2 DIABETES MELLITUS WITHOUT COMPLICATIONS; Z79.4 - LONG-TERM (CURRENT) USE OF INSULIN Assessment/Plan Current Active Problems HLD (hyperlipidemia) (Acute) Syncope (Acute) diabetes mellitus insulin using long term care social worker iddm Abnormal Lab Results 12/14/17 12/14/17 12/15/17 22:40 22:40 00:24 RDW 18.7 H D PT with INR 12.30 H Sodium Chloride BUN 23 H Creatinine 1.1 H Random Glucose Magnesium Creatine Kinase CK-MB (CK-2) 12/15/17 12/15/17 12/15/17 00:24 07:09 07:09 RDW 18.0 H PT with INR Sodium 146 H Chloride 109 H BUN 21 H Creatinine Random Glucose 70 L Magnesium 2.5 H Creatine Kinase 194 H CK-MB (CK-2) 4.124 H 12/15/17 13:22 RDW PT with INR Sodium Chloride BUN Creatinine Random Glucose Magnesium Creatine Kinase 203 H CK-MB (CK-2) 3.696 H Laboratory Results - last 24 hr 12/14/17 12/14/17 12/14/17 22:40 22:40 22:40 WBC 8.0 RBC 4.89 Hgb 13.3 D Hct 40.6 MCV 83.1 MCH 27.3 MCHC 32.8 RDW 18.7 H D Plt Count 250 D MPV 8.9 D Neutrophils % 70.5 Lymphocytes % 19.8 D Monocytes % 8.2 Eosinophils % 1.1 Basophils % 0.4 PT with INR 12.30 H INR 1.09 Sodium Cancelled Potassium Cancelled Chloride Cancelled Carbon Dioxide Cancelled Anion Gap Cancelled BUN Cancelled Creatinine Cancelled Creat Clearance w eGFR Cancelled POC Glucometer Random Glucose Cancelled Calcium Cancelled Phosphorus Magnesium Cancelled Total Bilirubin Cancelled AST Cancelled ALT Cancelled Alkaline Phosphatase Cancelled Creatine Kinase Cancelled Creatine Kinase Index CK-MB (CK-2) Troponin I Cancelled B-Natriuretic Peptide Total Protein Cancelled Albumin Cancelled 12/14/17 12/15/17 12/15/17 22:40 00:24 00:24 WBC RBC Hgb Hct MCV MCH MCHC RDW Plt Count MPV Neutrophils % Lymphocytes % Monocytes % Eosinophils % Basophils % PT with INR INR Sodium 143 Potassium 4.2 Chloride 105 Carbon Dioxide 26 Anion Gap 12 BUN 23 H Creatinine 1.1 H Creat Clearance w eGFR 48.04 POC Glucometer Random Glucose 94 Calcium 9.2 Phosphorus Magnesium Total Bilirubin 0.5 D AST 20 ALT 18 Alkaline Phosphatase 86 Creatine Kinase 194 H Creatine Kinase Index 2.1 CK-MB (CK-2) 4.124 H Troponin I < 0.02 B-Natriuretic Peptide Cancelled Total Protein 7.6 Albumin 3.6 12/15/17 12/15/17 12/15/17 00:24 00:24 07:09 WBC 7.8 RBC 4.47 Hgb 12.0 Hct 36.8 MCV 82.3 MCH 26.9 MCHC 32.7 RDW 18.0 H Plt Count 224 MPV 8.3 Neutrophils % 55.6 D Lymphocytes % 35.1 D Monocytes % 7.3 Eosinophils % 1.6 Basophils % 0.4 PT with INR INR Sodium Potassium Chloride Carbon Dioxide Anion Gap BUN Creatinine Creat Clearance w eGFR POC Glucometer Random Glucose Calcium Phosphorus Magnesium 2.3 Total Bilirubin AST ALT Alkaline Phosphatase Creatine Kinase Creatine Kinase Index CK-MB (CK-2) Troponin I B-Natriuretic Peptide 71.39 Total Protein Albumin 12/15/17 12/15/17 12/15/17 07:09 07:09 11:59 WBC RBC Hgb Hct MCV MCH MCHC RDW Plt Count MPV Neutrophils % Lymphocytes % Monocytes % Eosinophils % Basophils % PT with INR INR Sodium 146 H Potassium 4.0 Chloride 109 H Carbon Dioxide 25 Anion Gap 12 BUN 21 H Creatinine 0.9 Creat Clearance w eGFR POC Glucometer 87.16267 131.97811 Random Glucose 70 L Calcium 8.7 Phosphorus 3.7 Magnesium 2.5 H Total Bilirubin AST ALT Alkaline Phosphatase Creatine Kinase 173 Creatine Kinase Index 1.8 CK-MB (CK-2) 3.184 Troponin I < 0.02 B-Natriuretic Peptide Total Protein Albumin 12/15/17 12/15/17 12/15/17 13:22 17:00 21:26 WBC RBC Hgb Hct MCV MCH MCHC RDW Plt Count MPV Neutrophils % Lymphocytes % Monocytes % Eosinophils % Basophils % PT with INR INR Sodium Potassium Chloride Carbon Dioxide Anion Gap BUN Creatinine Creat Clearance w eGFR POC Glucometer 151 164 Random Glucose Calcium Phosphorus Magnesium Total Bilirubin AST ALT Alkaline Phosphatase Creatine Kinase 203 H Creatine Kinase Index 1.8 CK-MB (CK-2) 3.696 H Troponin I < 0.02 B-Natriuretic Peptide Total Protein Albumin plan: bgm qid novolog levemir 15 unit am check cortisol leve am/pm vdrl, lyme titer shannon esr, neuro consult
[2017-12-16] MEDS: INSULIN DETEMIR 100 UNITS/ML MDV SQ SCH (06:32)
[2017-12-16] MEDS: INSULIN SLIDING SCALE (NOVOLOG) 1 VIAL SQ SCH ×5 (06:34→22:06)
[2017-12-16] MEDS ORDERED: INSULIN SLIDING SCALE (NOVOLOG) 1 VIAL SQ SCH (07:00)
[2017-12-16] MEDS ORDERED: PT OWN MED DRAWER 7, Y5N ONE (09:48)
[2017-12-16] MEDS: PANTOPRAZOLE 40 MG TABLET (FP) PO SCH (09:49)
[2017-12-16] MEDS: ASPIRIN 81 MG CHEWABLE TABLETS PO SCH (09:49)
[2017-12-16] MEDS: VALSARTAN 80 MG TABLET (UD) PO SCH (09:49)
[2017-12-16] MEDS: ROSUVASTATIN CA 5 MG TABLET (FP) PO SCH (09:50)
[2017-12-16] MEDS ORDERED: FLUDROCORTISONE ACETATE 0.1 MG TABLET (FP) PO SCH (10:00)
--- NOTE | 2017-12-16 11:14 | PN ---
Progress Note (short form) - Note Progress Note: s: no cp sob palps dizzy; feeling well o: Vital Signs Period Temp Pulse Resp BP Sys/Molina Pulse Ox Last 24 Hr 97.3 F-99.1 F 68-84 16-22 112-169/54-84 98-99 nad, calm jvd flat, neck supple ctab, nl effort rrr nl s1, s2 no mrg +bs soft nt nd ext without e/c/c aaox3 no jaundice, diaphoresis. Current Medications Generic Name Dose Route Start Last Admin Trade Name Jeremias PRN Reason Stop Dose Admin Aspirin 81 mg 12/15/17 10:00 12/16/17 09:49 Asa - PO 81 mg DAILY MACIEL Administration Fludrocortisone Acetate 0.1 mg 12/16/17 10:00 Florinef - PO DAILY MACIEL Insulin Aspart 1 vial 12/16/17 07:00 12/16/17 06:34 Novolog Vial Sliding Scale - SQ Not Given ACHS MACIEL Protocol Insulin Detemir 15 units 12/16/17 07:00 12/16/17 06:32 Levemir Vial SQ 15 units AM MACIEL Administration Pantoprazole Sodium 40 mg 12/15/17 10:00 12/16/17 09:49 Protonix - PO 40 mg DAILY MACIEL Administration Rosuvastatin Calcium 5 mg 12/15/17 10:00 12/16/17 09:50 Crestor - PO 5 mg DAILY MACIEL Administration Valsartan 80 mg 12/15/17 10:00 12/16/17 09:49 Diovan - PO 80 mg DAILY MACIEL Administration CBC, BMP 12/15/17 07:09 12/15/17 07:09 ekg: nsr. nl intervals, anterior/anterolateral twi. similar to priors. cxr: wnl echo 10/2017: nl lv/rv, no sig valve path Echo 12/2016: nl lv/rv size/fn. impaired relaxation. 1+ mac Lexiscan stress MPI 01/2017: nl mpi, nl lvef carotid u/s 12/2016: mod bilateral plaque, no stenosis. tele: sr a/p: 77 yo with h/o HTN, HLD, IDDM,and GERD, and recurrent syncope s/p loop recorder placement p/w recurrent syncope. recurrent syncope - h/o recurrent syncope. Had neuro eval on prior admits for syncope --> thought to be vasovagal/neurocardiogenic. She was then sent for loop recorder (implanted 01/2017 at [place], [employer]). - loop recorder interrogated when had syncope 10/2017--> no arrhythmia/ bradycardia despite prolonged episode of LOC. - Orthostatic vitals negative - no signs acs. Recent echo and stress unremarkable. - head ct without acute pathology. 12/2016 carotid u/s unremarkable. - loop recorder was again interrogated this admit--> No events occurred during pt's syncope. Thus, there is no arrhythmia/bradycardia related etiology of her syncope. -will start trial of florinef 0.1 mg qd and pt can f/u 2 weeks in office HTN -stable on diovan HL - statin cardiac layne stable for dc
--- NOTE | 2017-12-16 13:47 | DS ---
Physical Examination Vital Signs: Vital Signs Temperature 98.4 F 12/16/17 10:00 Pulse Rate 71 12/16/17 10:00 Respiratory Rate 18 12/16/17 10:00 Blood Pressure 112/54 12/16/17 10:00 O2 Sat by Pulse Oximetry (%) 98 12/15/17 22:11 Constitutional: Yes: Calm Cardiovascular: Yes: Regular Rate and Rhythm, S1, S2 Respiratory: Yes: CTA Bilaterally Gastrointestinal: Yes: Normal Bowel Sounds, Soft Edema: No Neurological: Yes: Alert, Oriented Labs: CBC, BMP 12/15/17 07:09 12/15/17 07:09 Discharge Summary Reason For Visit: SYNCOPE Current Active Problems HLD (hyperlipidemia) (Acute) Syncope (Acute) Hospital Course: CHIEF COMPLAINT: syncope PCP: John HISTORY OF PRESENT ILLNESS: This is a 77 year old female with a significant PMH of syncope, DM, HTN who presented to the ED s/p syncopal episode while out shopping. She was caught by a bystander and did not hit the floor. The bystander happened to be an EMT and he reported that at first he was unable to locate her pulse and then when he did it was very weak. EMS reported a BGM of 114 upon arrival. Pt does not recall the actual syncopal episode but does report that she began to feel unwell just prior to passing out. Upon exam she is feeling better with no further syncopal episodes. She reports that she has had syncopal episodes in the past and the workup has always been negative. She has an implantable loop recorder that was interrogated at the time of her last syncope in October and she reports there were no abnormal findings. ER course was notable for: (1) labs WNL Recent Travel: pt denies PAST MEDICAL HISTORY: IDDM, GERD, HTN, HLD, syncope PAST SURGICAL HISTORY: loop recorder 02/25/17 Social History: Smoking: pt denies Alcohol:pt denies Drugs: pt denies Family History: mother in her 70s, unk PMH or COD father in his 80s, unk PMH or COD brother with DM?, copd patient had loop recorder interrogated and was ok started on florinef to go home today Condition: Improved - Instructions Referrals: Jaime Lopez MD [Primary Care Provider] - Beny Baptiste MD [Staff Physician] - 2 Weeks - Home Medications Comprehensive Discharge Medication List: Ambulatory Orders Aspirin 81 mg PO DAILY 10/17/17 Esomeprazole Magnesium [Nexium 24Hr] 40 mg PO DAILY 10/17/17 Insulin Aspart [Novolog] 100 unit SQ DAILY 10/17/17 Rosuvastatin Calcium [Crestor] 5 mg PO DAILY 10/17/17 Valsartan [Diovan] 80 mg PO DAILY 12/14/17
--- NOTE | 2017-12-16 18:46 | CONSULT ---
Consult - text type - Consultation Consultation Note: NEUROLOGY CONSULTATION is greatly appreciated: Events reviewed, Pt. examined. This 77 yo woman with h/o HTN, Chol, and DM (on pump) was seen by me 10/20/17 after one of multiple episodes of LOC with amnesia since 09/13. This is at least her 6th hospital admission for these stereotyped episodes in 5 years. Warned by a "rising epigastrium" sensation and with documented "twitching and shaking" and prolonged post-ictal amnesia. Multiple cardiac workups are normal and pt has had a loop monitor for at least 2 events without evidence of arrythmia. Last time she was discharged on levetiracetam 250 BID but stopped "when she got the flu." Now readmitted after a typical episode while shopping. Put on florinef with subsequent elevations in BG HOSSEIN: BP's 120-130/80. No bruits. Cor reg. No head trauma. Hirsuit NEURO: MS/Speech: Normal CN II-XII: normal Motor: No drift or tremor. Normal strength and reflexes. Coord: No FTN dystaxia Sensory: Normal Gait: Slightly wide-based. IMP: Complex Partial Seizures. SUGGEST: D/C Florinef. Check orthostatic BP's Resume keppra 250 BID x 1 week then 500 mg PO q12 hrs Neuro f/u and EEG as out patient. Thank you very much, Shoaib Celaya MD
[2017-12-16] MEDS: levETIRAcetam 250 MG TABLET (FP) PO SCH (22:15)
[2017-12-17] MEDS: INSULIN SLIDING SCALE (NOVOLOG) 1 VIAL SQ SCH ×2 (06:18→11:28)
[2017-12-17] MEDS: INSULIN DETEMIR 100 UNITS/ML MDV SQ SCH (06:33)
[2017-12-17 08:39] VITALS: TEMP 98.8
[2017-12-17 10:13] VITALS: BP 156/96; PULSE 86
[2017-12-17] MEDS ORDERED: PT OWN MED DRAWER 7, Y5N ONE (10:33)
[2017-12-17] MEDS: ASPIRIN 81 MG CHEWABLE TABLETS PO SCH (10:35)
[2017-12-17] MEDS: ROSUVASTATIN CA 5 MG TABLET (FP) PO SCH (10:35)
[2017-12-17] MEDS: levETIRAcetam 250 MG TABLET (FP) PO SCH (10:35)
[2017-12-17] MEDS: PANTOPRAZOLE 40 MG TABLET (FP) PO SCH (10:35)
[2017-12-17] MEDS: VALSARTAN 80 MG TABLET (UD) PO SCH (10:35)
--- NOTE | 2017-12-17 10:59 | PN ---
Progress Note (short form) - Note Progress Note: s: no cp sob palps dizzy; feeling well o: Vital Signs Period Temp Pulse Resp BP Sys/Molina Pulse Ox Last 24 Hr 97.5 F-98.8 F 69-96 19-20 131-166/70-96 95-99 nad, calm jvd flat, neck supple ctab, nl effort rrr nl s1, s2 no mrg +bs soft nt nd ext without e/c/c aaox3 no jaundice, diaphoresis. Current Medications Generic Name Dose Route Start Last Admin Trade Name Jeremias PRN Reason Stop Dose Admin Aspirin 81 mg 12/15/17 10:00 12/17/17 10:35 Asa - PO 81 mg DAILY MACIEL Administration Insulin Aspart 1 vial 12/16/17 07:00 12/17/17 06:18 Novolog Vial Sliding Scale - SQ Not Given ACHS MACIEL Protocol Insulin Detemir 15 units 12/16/17 07:00 12/17/17 06:33 Levemir Vial SQ 15 units AM MACIEL Administration Levetiracetam 250 mg 12/16/17 22:00 12/17/17 10:35 Keppra - PO 250 mg BID MACIEL Administration Pantoprazole Sodium 40 mg 12/15/17 10:00 12/17/17 10:35 Protonix - PO 40 mg DAILY MACIEL Administration Rosuvastatin Calcium 5 mg 12/15/17 10:00 12/17/17 10:35 Crestor - PO 5 mg DAILY MACIEL Administration Valsartan 80 mg 12/15/17 10:00 12/17/17 10:35 Diovan - PO 80 mg DAILY MACIEL Administration CBC, BMP 12/15/17 07:09 12/15/17 07:09 ekg: nsr. nl intervals, anterior/anterolateral twi. similar to priors. cxr: wnl echo 10/2017: nl lv/rv, no sig valve path Echo 12/2016: nl lv/rv size/fn. impaired relaxation. 1+ mac Lexiscan stress MPI 01/2017: nl mpi, nl lvef carotid u/s 12/2016: mod bilateral plaque, no stenosis. tele: sr a/p: 77 yo with h/o HTN, HLD, IDDM,and GERD, and recurrent syncope s/p loop recorder placement p/w recurrent syncope. recurrent syncope - h/o recurrent syncope. Had neuro eval on prior admits for syncope --> thought to be vasovagal/neurocardiogenic. She was then sent for loop recorder (implanted 01/2017 at [place], [employer]). - loop recorder interrogated when had syncope 10/2017--> no arrhythmia/ bradycardia despite prolonged episode of LOC. - Orthostatic vitals negative - no signs acs. Recent echo and stress unremarkable. - head ct without acute pathology. 12/2016 carotid u/s unremarkable. - loop recorder was again interrogated this admit--> No events occurred during pt's syncope. Thus, there is no arrhythmia/bradycardia related etiology of her syncope. -d/w with neurology and Dr Celaya is fairly certain pt's episodes are related to seizures and he had previously started her on keppra but she self dc'ed it and this possibly led to repeat episode. She is now back on keppra so florinef has been stopped. Will monitor for recurrence now that on keppra. HTN -stable on diovan HL - statin cardiac layne stable for dc
== END 2017-12-17 12:59 | disposition home or self-care (01) ==
LOC: JER 21:04 → JERBED 12-15 01:48 → UNDOADMOB 12-15 01:53 → J4W 12-15 13:04
PROVIDERS: ADMIT Internal Medicine; ATTEND Internal Medicine
PROC: 3E013VG Introduction of Insulin into Subcutaneous Tissue, Percutaneous Approach (ICD-10-PCS; principal; 2017-12-15)
DX: R55 Syncope and collapse (principal); I10 Essential (primary) hypertension; E11.9 Type 2 diabetes mellitus without complications; K21.9 Gastro-esophageal reflux disease without esophagitis; E78.5 Hyperlipidemia, unspecified; Z87.891 Personal history of nicotine dependence; Z79.82 Long term (current) use of aspirin; Z79.4 Long term (current) use of insulin; Z96.41 Presence of insulin pump (external) (internal)
CPT/HCPCS: 36415; 71046-TC-FY; 80048; 80053; 82533; 82550; 82553; 82962; 83735; 83880; 84100; 84484; 85025; 85610; 85651; 86593; 86618; 93005; 93010; 96372; 99285-25; G0378

== ENCOUNTER 2018-08-03 17:23 | Observation (INO) | payer OTHER ==
--- NOTE | 2018-08-03 18:00 | PDOC ---
History of Present Illness - General Stated Complaint: SYNCOPE Time Seen by Provider: 08/03/18 17:58 Past History - Past Medical History Allergies/Adverse Reactions: Allergies Allergy/AdvReac Type Severity Reaction Status Date / Time No Known Allergies Allergy Verified 12/14/17 21:30 Home Medications: Ambulatory Orders Aspirin 81 mg PO DAILY 10/17/17 Esomeprazole Magnesium [Nexium 24Hr] 40 mg PO DAILY 10/17/17 Insulin Aspart [Novolog] 100 unit SQ DAILY 10/17/17 Rosuvastatin Calcium [Crestor] 5 mg PO DAILY 10/17/17 Valsartan [Diovan] 80 mg PO DAILY 12/14/17 levETIRAcetam [Keppra -] 500 mg PO BID #60 tablet 12/17/17 Anemia: No Asthma: No Cancer: No Cardiac Disorders: No CVA: No COPD: No CHF: No Dementia: No Diabetes: Yes (IDDM insulin pump) GI Disorders: Yes (GERD) Disorders: No HTN: Yes Hypercholesterolemia: Yes Liver Disease: No Seizures: No Thyroid Disease: No - Immunization History Immunization Up to Date: No - Suicide/Smoking/Psychosocial Hx Smoking Status: No Smoking History: Former smoker Have you smoked in the past 12 months: No Number of Cigarettes Smoked Daily: 0 Hx Alcohol Use: No Drug/Substance Use Hx: No Substance Use Type: None Hx Substance Use Treatment: No
[2018-08-03 18:10] VITALS: BMI 25.8
--- NOTE | 2018-08-03 18:36 | PDOC ---
History of Present Illness - General Chief Complaint: Syncope/Near Syncope Stated Complaint: SYNCOPE Time Seen by Provider: 08/03/18 17:58 History Source: Patient, Old Records Exam Limitations: Other (pt sometimes forgetful) - History of Present Illness Initial Comments: 08/03/18 18:30 77 yo F on ASA, w/ a h/o syncope, IDDM, HTN, HLD, GERD, w/ Implantable cardiac device, loop recorder which has not shown any evidence of arrythmias for the last 2 syncopal events as per chart. She comes in for evaluation after syncopal episode while standing at the restaurant. She remembers standing, then waking up to EMS, nothing in between, (+)LOC, unknown head trauma, denies pain anywhere , denies any medical complaints at this time. She say sthat she has had multiple epiosdes in the past and they are still trying to find out what's going on. She is on Keppra for possible seizures. denies recent cold symptoms, no cough, denies urinary symptoms. NO change in appetite. PMDs: Dr. Lopez, Dr. Conteh Tumbler Machine Operator Helper: Dr. Esparza 08/03/18 18:55 Past History - Past Medical History Allergies/Adverse Reactions: Allergies Allergy/AdvReac Type Severity Reaction Status Date / Time No Known Allergies Allergy Verified 12/14/17 21:30 Home Medications: Ambulatory Orders Aspirin 81 mg PO DAILY 10/17/17 Esomeprazole Magnesium [Nexium 24Hr] 40 mg PO DAILY 10/17/17 Insulin Aspart [Novolog] 100 unit SQ DAILY 10/17/17 Rosuvastatin Calcium [Crestor] 5 mg PO DAILY 10/17/17 Valsartan [Diovan] 80 mg PO DAILY 12/14/17 levETIRAcetam [Keppra -] 500 mg PO BID #60 tablet 12/17/17 Anemia: No Asthma: No Cancer: No Cardiac Disorders: No CVA: No COPD: No CHF: No Dementia: No Diabetes: Yes (IDDM insulin pump) GI Disorders: Yes (GERD) Disorders: No HTN: Yes Hypercholesterolemia: Yes Liver Disease: No Seizures: No Thyroid Disease: No - Surgical History Cardiac Surgery: No Cholecystectomy: No - Immunization History Immunization Up to Date: No - Suicide/Smoking/Psychosocial Hx Smoking Status: No Smoking History: Never smoked Have you smoked in the past 12 months: No Number of Cigarettes Smoked Daily: 0 Information on smoking cessation initiated: No Hx Alcohol Use: No Drug/Substance Use Hx: No Substance Use Type: None Hx Substance Use Treatment: No Review of Systems - Review of Systems Able to Perform ROS?: Yes Constitutional: No: Chills, Fever, Malaise, Night Sweats HEENTM: No: Eye Pain, Recent change in vision, Throat Pain Respiratory: No: Cough, Shortness of Breath Cardiac (ROS): No: Chest Pain, Palpitations, Chest Tightness ABD/GI: No: Diarrhea, Nausea, Vomiting, Abdominal cramping : No: Dysuria, Hematuria Musculoskeletal: No: Back Pain Integumentary: No: Rash Neurological: No: Headache, Numbness, Dizziness Psychiatric: No: Change in Appetite Endocrine: No: Unexplained Weight Loss *Physical Exam - Vital Signs Last Vital Signs Temp Pulse Resp BP Pulse Ox 100.1 F H 78 16 121/69 100 08/03/18 18:05 08/03/18 18:17 08/03/18 18:17 08/03/18 18:17 08/03/18 18:17 - Physical Exam General Appearance: Yes: Nourished. No: Apparent Distress HEENT: positive: ALFONSO, Normal ENT Inspection ( no nystagmus), Normal Voice. negative: Pale Conjunctivae, Scleral Icterus (R), Scleral Icterus (L), TM Bulging, TM Erythema (no hemotympanum) Neck: positive: Supple. negative: Decreased range of motion, Tender midline Respiratory/Chest: positive: Lungs Clear, Normal Breath Sounds. negative: Respiratory Distress, Accessory Muscle Use Cardiovascular: positive: Regular Rhythm, Regular Rate Gastrointestinal/Abdominal: positive: Normal Bowel Sounds, Soft. negative: Tender Musculoskeletal: positive: Normal Inspection. negative: CVA Tenderness, Decreased Range of Motion Extremity: positive: Normal Capillary Refill, Normal Inspection, Normal Range of Motion, Other (mild abrasions to the knees bilaterally, without tenderness, no swelling, no erythema, FROM). negative: Tender, Pedal Edema Integumentary: positive: Normal Color, Dry. 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 Normal rapid alternating movements. normal heel to cuadra. Negative Rhomberg. Normal gait. ). negative: Facial Droop, Numbness, Sensory Deficit ED Treatment Course - LABORATORY CBC & Chemistry Diagram: 08/03/18 18:29 08/03/18 18:29 - RADIOLOGY Radiology Studies Ordered: Category Date Time Status HEAD CT WITHOUT CONTRAST [CT] Stat CT Scan 08/03/18 18:26 Ordered CHEST X-RAY PORTABLE* [RAD] Stat Radiology 08/03/18 18:25 Ordered Medical Decision Making - Medical Decision Making 08/03/18 19:18 77 yo F s/p synocopal episode. Temp 100.1. WIll do septic work up. Will line and lab, do CXR, CT head. No need for CT C spine. IWll order orthostats. When results come back, will page crusher tender and likely adm to hospital. Change of shift, care of patient signed over to Callie Grace who will follow up labs , CT, decide on dispo and reassess patient *DC/Admit/Observation/Transfer Diagnosis at time of Disposition: Syncope - Discharge Dispostion Condition at time of disposition: Stable - Referrals - Patient Instructions - Post Discharge Activity
[2018-08-03 18:43] LABS: BASO % 0.5 % (0-2.0); EOS % 2.5 % (0-4.5); HEMATOCRIT 37.2 % (32.4-45.2); LYMPH % 37.7 % (8-40); MCH 27.2 pg (25.7-33.7); MCHC 32.2 g/dl (32.0-36.0); MEAN CELL VOLUME 84.5 fl (80-96); MEAN PLT VOLUME 9.1 fl (7.5-11.1); NEUT % 51.3 % (42.8-82.8); PLATELET COUNT 200 K/MM3 (134-434); RDW 16.7 % (11.6-15.6)
[2018-08-03 18:54] LABS: INR 1.18 (0.83-1.09); PROTHROMBIN TIME (PATIENT) 13.9 SEC (9.7-13.0)
[2018-08-03 19:08] LABS: ALBUMIN 3.1 g/dl (3.4-5.0); ALK PHOS 80 U/L (45-117); ANION GAP 10 MMOL/L (8-16); BILIRUBIN,TOTAL 0.4 mg/dL (0.2-1); BLOOD UREA NITROGEN 21 mg/dL (7-18); CALCIUM 8.4 mg/dL (8.5-10.1); CHLORIDE 113 mmol/L (98-107); CO2 25 mmol/L (21-32); CREATININE 1.2 mg/dL (0.55-1.3); GLUCOSE,RANDOM 90 mg/dL (74-106); MAGNESIUM 1.9 mg/dL (1.8-2.4); PHOSPHOROUS 2.8 mg/dL (2.5-4.9); POTASSIUM 3.9 mmol/L (3.5-5.1); SGOT/AST 29 U/L (15-37); SGPT/ALT 28 U/L (13-61); SODIUM 148 mmol/L (136-145); TOT PROT 6.5 g/dl (6.4-8.2)
--- NOTE | 2018-08-03 19:40 | PDOC ---
*Physical Exam - Vital Signs Last Vital Signs Temp Pulse Resp BP Pulse Ox 100.1 F H 78 16 121/69 100 08/03/18 18:05 08/03/18 18:17 08/03/18 18:17 08/03/18 18:17 08/03/18 18:17 ED Treatment Course - LABORATORY CBC & Chemistry Diagram: 08/04/18 06:25 08/04/18 06:25 - ADDITIONAL ORDERS Additional order review: Laboratory Results 08/03/18 08/03/18 18:29 18:29 PT with INR 13.90 H INR 1.18 H Sodium 148 H Potassium 3.9 Chloride 113 H Carbon Dioxide 25 Anion Gap 10 BUN 21 H Creatinine 1.2 Creat Clearance w eGFR 43.45 Random Glucose 90 Calcium 8.4 L Phosphorus 2.8 Magnesium 1.9 Total Bilirubin 0.4 AST 29 ALT 28 Alkaline Phosphatase 80 Creatine Kinase 165 Creatine Kinase Index 1.2 CK-MB (CK-2) 2.1 Troponin I < 0.02 Total Protein 6.5 Albumin 3.1 L 08/03/18 18:29 RBC 4.40 MCV 84.5 MCHC 32.2 RDW 16.7 H MPV 9.1 D Neutrophils % 51.3 Lymphocytes % 37.7 Monocytes % 8.0 Eosinophils % 2.5 Basophils % 0.5 Progress Note - Progress Note Progress Note: Received signout from REFUGIO Rivera. This 77-year-old woman presents emergency department for evaluation in status post syncopal episode. Patient with history of IDDM, hypertension, hyperlipidemia, GERD, loop recorder-which has not shown any arrhythmias during last 2 previous syncopal events. Laboratory testing reveals a sodium of 148 which is the patient's baseline per previous charting. CT of the head as read by Dr. Almonte: No CT evidence of acute intracranial pathology. There is been no definite interval change in comparison to a prior CT exam of 10/18/2017. Chest x-rays read by Dr. Peraza: No acute pathology. No significant change since 12/14/2017. Plan: Patient is to be admitted. I will call the patient's track dresser Dr. Baptiste as well as the patient's PMD Dr. Jara for admission and loop recorder interrogation. Medical Decision Making - Medical Decision Making 08/03/18 20:[address] Tidwell who is covering for Dr. Baptiste. No voluntary gait patient's loop recorder while inpatient. I will contact the hospitalist service who admits for Dr. Jara. This discussed with Kristina Hammer covering nurse practitioner who agrees to telemetry observation. Patient noted to be slightly orthostatic. Laboratory results reveal slight hyponatremia and increased BUN. I will give the patient 500 mL bolus of fluid to be followed up by the hospitalist. *DC/Admit/Observation/Transfer Diagnosis at time of Disposition: Syncope Qualifiers: Syncope type: unspecified Qualified Code(s): R55 - Syncope and collapse - Discharge Dispostion Condition at time of disposition: Stable Decision to Admit order: Yes - Referrals - Patient Instructions - Post Discharge Activity
[2018-08-03] MEDS ORDERED: SODIUM CHLORIDE 500 ML IV STA (20:18)
[2018-08-03 20:19] LABS: VENOUS PH 7.41 (7.32-7.42)
[2018-08-03 20:20] LABS: VENOUS PO2 57.6 mmHg (28-48)
--- NOTE | 2018-08-03 21:41 | HP ---
Admitting History and Physical - Primary Care Physician PCP: Jaime Lopez - Admission Chief Complaint: Dizziness, Unsteady Gait History of Present Illness: This is a 77 y/o woman with a PMHx of: IDDM on Insulin Pump, HTN, Multiple Syncopal Episodes, s/p Loop Recorder, Seizures (on Keppra). Who presents to the ED s/p syncope,while standing at a restaurant. Patient recalls standing, then waking up to EMS, nothing in between, (+)LOC, unknown head trauma, Patient denies pain. Patient reports that this is her 7th event. Patient denies blurred vision, SOB, CP, palpitations. Patient denies fever, chills, cough, AP, N/V/D, constipation, dysuria. 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 Cardiovascular: Yes: HTN, Hyperlipdemia Gastrointestinal: Yes: GERD Endocrine: Yes: Diabetes Mellitus - Past Surgical History Past Surgical History: Yes: None Additional Past Surgical History: insulin pump loop recorder - Smoking History Smoking history: Never smoked Have you smoked in the past 12 months: No Aproximately how many cigarettes per day: 0 - Alcohol/Substance Use Hx Alcohol Use: No History of Substance Use: reports: None - Social History Usual Living Arrangement: Yes: Alone ADL: Independent History of Recent Travel: No Home Medications - Allergies Allergies/Adverse Reactions: Allergies Allergy/AdvReac Type Severity Reaction Status Date / Time No Known Allergies Allergy Verified 12/14/17 21:30 - Home Medications Home Medications: Ambulatory Orders Aspirin 81 mg PO DAILY 10/17/17 Esomeprazole Magnesium [Nexium 24Hr] 40 mg PO DAILY 10/17/17 Rosuvastatin Calcium [Crestor] 5 mg PO DAILY 10/17/17 Valsartan [Diovan] 80 mg PO DAILY 12/14/17 levETIRAcetam [Keppra -] 500 mg PO BID #60 tablet 12/17/17 Insulin Pump Cartridge 08/03/18 Family Disease History - Family Disease History Family History: Unable to Obtain Review of Systems - Review of Systems Constitutional: reports: No Symptoms Eyes: reports: No Symptoms HENT: reports: No Symptoms Neck: reports: No Symptoms Cardiovascular: reports: No Symptoms Respiratory: reports: No Symptoms Gastrointestinal: reports: No Symptoms Genitourinary: reports: No Symptoms Breasts: reports: No Symptoms Reported Musculoskeletal: reports: No Symptoms Integumentary: reports: No Symptoms Neurological: reports: Dizziness, Syncope, Unsteady Gait Endocrine: reports: No Symptoms Hematology/Lymphatic: reports: No Symptoms Psychiatric: reports: No Symptoms Physical Examination Vital Signs: Vital Signs Temperature 100.1 F H 08/03/18 18:05 Pulse Rate 79 08/03/18 20:09 Respiratory Rate 16 08/03/18 18:17 Blood Pressure 112/63 08/03/18 20:09 O2 Sat by Pulse Oximetry (%) 100 08/03/18 18:17 Constitutional: Yes: Well Nourished, No Distress, Calm Eyes: Yes: WNL, Conjunctiva Clear, EOM Intact, PERRL HENT: Yes: WNL, Atraumatic, Normocephalic Neck: Yes: WNL, Supple, Trachea Midline Cardiovascular: Yes: Regular Rate and Rhythm, S1, S2 Respiratory: Yes: WNL, Regular, CTA Bilaterally Gastrointestinal: Yes: WNL, Normal Bowel Sounds, Soft Renal/: Yes: WNL Breast(s): Yes: WNL Musculoskeletal: Yes: WNL Extremities: Yes: WNL Edema: No Peripheral Pulses WNL: Yes Neurological: Yes: WNL, Alert, Oriented, Cran Nerves II-XII Intact ...Motor Strength: WNL Psychiatric: Yes: WNL, Alert, Oriented Labs: CBC, BMP 08/03/18 18:29 08/03/18 18:29 Laboratory Results - last 24 hr 08/03/18 08/03/18 08/03/18 00:29 00:29 17:55 WBC RBC Hgb Hct MCV MCH MCHC RDW Plt Count MPV Absolute Neuts (auto) Neutrophils % Lymphocytes % Monocytes % Eosinophils % Basophils % Nucleated RBC % PT with INR INR VBG pH POC VBG pCO2 POC VBG pO2 Mixed VBG HCO3 Sodium Potassium Chloride Carbon Dioxide Anion Gap BUN Creatinine Creat Clearance w eGFR POC Glucometer 105.00323 Random Glucose Lactic Acid Calcium Phosphorus Magnesium Total Bilirubin AST ALT Alkaline Phosphatase Creatine Kinase Creatine Kinase Index CK-MB (CK-2) Troponin I Total Protein Albumin Urine Color Ltyellow Urine Appearance Clear Urine pH 6.0 Ur Specific [place] 1.012 Urine Protein Negative Urine Glucose (UA) Negative Urine Ketones Negative Urine Blood Negative Urine Nitrite Negative Urine Bilirubin Negative Urine Urobilinogen 2.0 H Ur Leukocyte Esterase Trace Urine WBC (Auto) 6 Urine RBC (Auto) <1 Hyaline Casts 4 Blood Type O POSITIVE Antibody Screen 08/03/18 08/03/18 08/03/18 18:29 18:29 18:29 WBC 5.0 RBC 4.40 Hgb 12.0 Hct 37.2 MCV 84.5 MCH 27.2 MCHC 32.2 RDW 16.7 H Plt Count 200 MPV 9.1 D Absolute Neuts (auto) 2.5 Neutrophils % 51.3 Lymphocytes % 37.7 Monocytes % 8.0 Eosinophils % 2.5 Basophils % 0.5 Nucleated RBC % 0 PT with INR 13.90 H INR 1.18 H VBG pH POC VBG pCO2 POC VBG pO2 Mixed VBG HCO3 Sodium 148 H Potassium 3.9 Chloride 113 H Carbon Dioxide 25 Anion Gap 10 BUN 21 H Creatinine 1.2 Creat Clearance w eGFR 43.45 POC Glucometer Random Glucose 90 Lactic Acid Calcium 8.4 L Phosphorus 2.8 Magnesium 1.9 Total Bilirubin 0.4 AST 29 ALT 28 Alkaline Phosphatase 80 Creatine Kinase 165 Creatine Kinase Index 1.2 CK-MB (CK-2) 2.1 Troponin I < 0.02 Total Protein 6.5 Albumin 3.1 L Urine Color Urine Appearance Urine pH Ur Specific [place] Urine Protein Urine Glucose (UA) Urine Ketones Urine Blood Urine Nitrite Urine Bilirubin Urine Urobilinogen Ur Leukocyte Esterase Urine WBC (Auto) Urine RBC (Auto) Hyaline Casts Blood Type Antibody Screen 08/03/18 08/03/18 08/03/18 18:29 18:30 19:19 WBC RBC Hgb Hct MCV MCH MCHC RDW Plt Count MPV Absolute Neuts (auto) Neutrophils % Lymphocytes % Monocytes % Eosinophils % Basophils % Nucleated RBC % PT with INR INR VBG pH 7.41 POC VBG pCO2 40.0 POC VBG pO2 57.6 H Mixed VBG HCO3 25.1 H Sodium Potassium Chloride Carbon Dioxide Anion Gap BUN Creatinine Creat Clearance w eGFR POC Glucometer Random Glucose Lactic Acid 1.8 Calcium Phosphorus Magnesium Total Bilirubin AST ALT Alkaline Phosphatase Creatine Kinase Creatine Kinase Index CK-MB (CK-2) Troponin I Total Protein Albumin Urine Color Urine Appearance Urine pH Ur Specific [place] Urine Protein Urine Glucose (UA) Urine Ketones Urine Blood Urine Nitrite Urine Bilirubin Urine Urobilinogen Ur Leukocyte Esterase Urine WBC (Auto) Urine RBC (Auto) Hyaline Casts Blood Type O POSITIVE Antibody Screen Negative 08/04/18 00:29 WBC RBC Hgb Hct MCV MCH MCHC RDW Plt Count MPV Absolute Neuts (auto) Neutrophils % Lymphocytes % Monocytes % Eosinophils % Basophils % Nucleated RBC % PT with INR INR VBG pH POC VBG pCO2 POC VBG pO2 Mixed VBG HCO3 Sodium Potassium Chloride Carbon Dioxide Anion Gap BUN Creatinine Creat Clearance w eGFR POC Glucometer Random Glucose Lactic Acid Calcium Phosphorus Magnesium Total Bilirubin AST ALT Alkaline Phosphatase Creatine Kinase Creatine Kinase Index CK-MB (CK-2) Troponin I < 0.02 Total Protein Albumin Urine Color Urine Appearance Urine pH Ur Specific [place] Urine Protein Urine Glucose (UA) Urine Ketones Urine Blood Urine Nitrite Urine Bilirubin Urine Urobilinogen Ur Leukocyte Esterase Urine WBC (Auto) Urine RBC (Auto) Hyaline Casts Blood Type Antibody Screen Current Medications Generic Name Dose Route Start Last Admin Trade Name Freq PRN Reason Stop Dose Admin Aspirin 81 mg 08/04/18 10:00 Asa - PO DAILY MACIEL Levetiracetam 500 mg 08/03/18 23:45 08/04/18 00:28 Keppra - PO 500 mg BID MACIEL Administration Pantoprazole Sodium 40 mg 08/04/18 10:00 Protonix - PO DAILY MACIEL Rosuvastatin Calcium 5 mg 08/03/18 22:00 08/04/18 00:28 Crestor - PO 5 mg HS MACIEL Administration Valsartan 80 mg 08/03/18 22:00 08/04/18 00:28 Diovan - PO 80 mg HS MACIEL Administration Imaging - Results Chest X-ray: Report Reviewed, Image Reviewed Cat Scan: Report Reviewed, Image Reviewed EKG: Image Reviewed Problem List - Problems (1) Syncope Assessment/Plan: Likely secondary to arrhythmia Continue cardiac monitoring Head CT-neg ICH Serial Enzymes Appreciate Cardiology consult Interrogation of Loop Recorder in am Carotid Duplex in am Monitor CBC, BMP Neurochecks Fall Precautions Code(s): R55 - SYNCOPE AND COLLAPSE Qualifiers: Syncope type: unspecified Qualified Code(s): R55 - Syncope and collapse (2) IDDM (insulin dependent diabetes mellitus) Assessment/Plan: BGMs Patient may continue her Insulin Pump Monitor BMP Code(s): E11.9 - TYPE 2 DIABETES MELLITUS WITHOUT COMPLICATIONS; Z79.4 - LONG-TERM (CURRENT) USE OF INSULIN (3) Anemia Assessment/Plan: stable Hgb 12.0 Will transfuse if Hgb < 7.0 CBCD in am Code(s): D64.9 - ANEMIA, UNSPECIFIED (4) HLD (hyperlipidemia) Assessment/Plan: Continue Crestor Monitor LFTs Code(s): E78.5 - HYPERLIPIDEMIA, UNSPECIFIED (5) Hypertension Assessment/Plan: stable Continue Diovan Monitor renal function Code(s): I10 - ESSENTIAL (PRIMARY) HYPERTENSION Assessment/Plan This is a 77 y/o woman with a PMHx of IDDM (with a Insulin pump), HTN, Multiple Syncopal Episodes s/p loop recorder. Placed on Tele Observation for Syncope for further evaluation of emergent condition. Plan: FEN PO fluids as tolerated Replete lytes prn Low Na Diet DVT ppx OOB SCDs Consider AC if > LOS 48hrs Dispo: Observation Visit type - Emergency Visit Emergency Visit: Yes ED Registration Date: 08/03/18 Care time: The patient presented to the Emergency Department on the above date and was hospitalized for further evaluation of their emergent condition. - New Patient This patient is new to me today: Yes Date on this admission: 08/03/18 - Critical Care Critical Care patient: No
[2018-08-03] MEDS ORDERED: VALSARTAN 80 MG TABLET (UD) PO SCH (22:00)
[2018-08-03] MEDS ORDERED: ROSUVASTATIN CA 5 MG TABLET (FP) PO SCH (22:00)
[2018-08-04] MEDS: levETIRAcetam 500 MG TABLET (FP) PO SCH ×2 (00:28→10:08)
[2018-08-04 01:18] LABS: URINE APPEARANCE CLEAR; URINE BILIRUBIN NEGATIVE (<2.0 mg/dL); URINE COLOR LTYELLOW; URINE GLUCOSE (UA) NEGATIVE (NEGATIVE); URINE KETONE NEGATIVE (NEGATIVE); URINE LEUK ESTERASE TRACE (NEGATIVE); URINE NITRITE NEGATIVE (NEGATIVE); URINE PROTEIN NEGATIVE (NEGATIVE)
[2018-08-04 01:30] LABS: URINE HYALINE CAST 4 /lpf
[2018-08-04 06:36] LABS: BASO % 0.5 % (0-2.0); EOS % 3.1 % (0-4.5); HEMATOCRIT 36.5 % (32.4-45.2); HEMOGLOBIN 11.6 GM/dL (10.7-15.3); LYMPH % 38.5 % (8-40); MCH 26.7 pg (25.7-33.7); MCHC 31.7 g/dl (32.0-36.0); MEAN CELL VOLUME 84.1 fl (80-96); MEAN PLT VOLUME 8.6 fl (7.5-11.1); NEUT % 49.9 % (42.8-82.8); PLATELET COUNT 178 K/MM3 (134-434); RBC 4.34 M/mm3 (3.60-5.2); RDW 17.2 % (11.6-15.6); WHITE BLOOD COUNT 6.4 K/mm3 (4.0-10.0)
[2018-08-04 07:20] LABS: ANION GAP 5 MMOL/L (8-16); BLOOD UREA NITROGEN 17 mg/dL (7-18); CALCIUM 8.5 mg/dL (8.5-10.1); CHLORIDE 111 mmol/L (98-107); CO2 27 mmol/L (21-32); GLUCOSE,RANDOM 81 mg/dL (74-106); MAGNESIUM 2.1 mg/dL (1.8-2.4); PHOSPHOROUS 3.4 mg/dL (2.5-4.9); POTASSIUM 3.9 mmol/L (3.5-5.1); SODIUM 144 mmol/L (136-145)
[2018-08-04] MEDS ORDERED: ASPIRIN 81 MG CHEWABLE TABLETS PO SCH (10:00)
[2018-08-04] MEDS ORDERED: PANTOPRAZOLE 40 MG TABLET (FP) PO SCH (10:00)
[2018-08-04] MEDS ORDERED: PT OWN MED DRAWER 7, Y5N ONE (10:06)
--- NOTE | 2018-08-04 10:46 | PN ---
Progress Note, Physician Chief Complaint: patient seen and sitting up in bed no distress - Current Medication List Current Medications: Active Medications Aspirin (Asa -) 81 mg PO DAILY [facility] Last Admin: 08/04/18 10:08 Dose: 81 mg Levetiracetam (Keppra -) 500 mg PO BID [facility] Last Admin: 08/04/18 10:08 Dose: 500 mg Pantoprazole Sodium (Protonix -) 40 mg PO DAILY [facility] Last Admin: 08/04/18 10:08 Dose: 40 mg Rosuvastatin Calcium (Crestor -) 5 mg PO [facility] Last Admin: 08/04/18 00:28 Dose: 5 mg Valsartan (Diovan -) 80 mg PO [facility] Last Admin: 08/04/18 00:28 Dose: 80 mg - Objective Vital Signs: Vital Signs Temperature 97.8 F 08/04/18 10:00 Pulse Rate 70 08/04/18 10:00 Respiratory Rate 16 08/04/18 10:00 Blood Pressure 132/72 08/04/18 10:00 O2 Sat by Pulse Oximetry (%) 95 08/04/18 06:36 Constitutional: Yes: Calm Cardiovascular: Yes: Regular Rate and Rhythm, S1, S2 Respiratory: Yes: CTA Bilaterally Gastrointestinal: Yes: Normal Bowel Sounds, Soft Edema: No Neurological: Yes: Alert, Oriented Labs: CBC, BMP 08/04/18 06:25 08/04/18 06:25 INR, PTT INR 1.18 (0.83-1.09) H 08/03/18 18:29 Problem List - Problems (1) Syncope Assessment/Plan: cardiology eval telemetry neurology eval keppra 500mg po bid CE 3 sets negative Code(s): R55 - SYNCOPE AND COLLAPSE Qualifiers: Syncope type: unspecified Qualified Code(s): R55 - Syncope and collapse (2) HLD (hyperlipidemia) Assessment/Plan: statin Code(s): E78.5 - HYPERLIPIDEMIA, UNSPECIFIED (3) Hypertension Assessment/Plan: diovan Code(s): I10 - ESSENTIAL (PRIMARY) HYPERTENSION
--- NOTE | 2018-08-04 10:50 | EKG ---
Test Reason : Blood Pressure : / mmHG Vent. Rate : 075 BPM Atrial Rate : 075 BPM P-R Int : 126 ms QRS Dur : 072 ms QT Int : 406 ms P-R-T Axes : 034 052 109 degrees QTc Int : 453 ms NORMAL SINUS RHYTHM T WAVE ABNORMALITY, CONSIDER ANTERIOR ISCHEMIA ABNORMAL ECG WHEN COMPARED WITH ECG OF 14-DEC-2017 22:21, NO SIGNIFICANT CHANGE WAS FOUND Confirmed by SUSAN FRANCIS MD ([id number]) on 08/04/2018 10:49:46 AM Referred By: Confirmed By:SUSAN FRANCIS MD
--- NOTE | 2018-08-04 11:39 | CON.CARD ---
Cardiology Consult (text) - Consultation Consultation Note: CC: syncope hpi: 77 yo f with h/o HTN, HLD, IDDM,and GERD, and recurrent syncope s/p loop recorder placement p/w recurrent syncope. Pt was standing in line at restaurant waiting for food and passed out. She only remembers being in line and then being in ambulance, does not recall in between. Prior to episode had been feeling fine. Feels well now. No cp, sob, palps, pnd, orthopnea, le edema , dizzy. cards: Dr Baptiste Past Medical History/Past surgical hx: per hpi Social hx: - Alcohol/Substance Use Hx Alcohol Use: No History of Substance Use: reports: None - Smoking History Smoking history: Former smoker fam hx: no premature cad. cancer in brother and sister - unsure of type ros: per hpi; no fever, cough, lara, vision changes, wt loss, gib, hematuria, dysuria, muscle pain Ambulatory Orders Home Medications Medication Instructions Recorded Aspirin 81 mg PO DAILY 10/17/17 Esomeprazole Magnesium [Nexium 40 mg PO DAILY 10/17/17 24Hr] Rosuvastatin Calcium [Crestor] 5 mg PO DAILY 10/17/17 Valsartan [Diovan] 80 mg PO DAILY 12/14/17 levETIRAcetam [Keppra -] 500 mg PO BID #60 tablet 12/17/17 Insulin Pump Cartridge 08/03/18 nad, calm jvd flat, neck supple ctab, nl effort rrr nl s1, s2 no mrg nd PMI +bs soft nt nd, no hsm ext without e/c/c + dp/pt no carotid bruits aaox3 no jaundice, diaphoresis. Laboratory Last Values WBC 6.4 K/mm3 (4.0-10.0) 08/04/18 06:25 RBC 4.34 M/mm3 (3.60-5.2) 08/04/18 06:25 Hgb 11.6 GM/dL (10.7-15.3) 08/04/18 06:25 Hct 36.5 % (32.4-45.2) 08/04/18 06:25 MCV 84.1 fl (80-96) 08/04/18 06:25 MCH 26.7 pg (25.7-33.7) 11/02/18 06:25 MCHC 31.7 g/dl (32.0-36.0) L 08/04/18 06:25 RDW 17.2 % (11.6-15.6) H 08/04/18 06:25 Plt Count 178 K/MM3 (134-434) 08/04/18 06:25 MPV 8.6 fl (7.5-11.1) 08/04/18 06:25 Absolute Neuts (auto) 3.2 K/mm3 (1.5-8.0) 08/04/18 06:25 Neutrophils % 49.9 % (42.8-82.8) 08/04/18 06:25 Lymphocytes % 38.5 % (8-40) 08/04/18 06:25 Monocytes % 8.0 % (3.8-10.2) 08/04/18 06:25 Eosinophils % 3.1 % (0-4.5) 08/04/18 06:25 Basophils % 0.5 % (0-2.0) 08/04/18 06:25 Nucleated RBC % 0 % (0-0) 08/04/18 06:25 PT with INR 13.90 SEC (9.7-13.0) H 08/03/18 18:29 INR 1.18 (0.83-1.09) H 08/03/18 18:29 VBG pH 7.41 (7.32-7.42) 08/03/18 19:19 POC VBG pCO2 40.0 mmHg (38-52) 08/03/18 19:19 POC VBG pO2 57.6 mmHg (28-48) H 08/03/18 19:19 Mixed VBG HCO3 25.1 meq/L (19-25) H 08/03/18 19:19 Sodium 144 mmol/L (136-145) 08/04/18 06:25 Potassium 3.9 mmol/L (3.5-5.1) 08/04/18 06:25 Chloride 111 mmol/L (98-107) H 08/04/18 06:25 Carbon Dioxide 27 mmol/L (21-32) 08/04/18 06:25 Anion Gap 5 MMOL/L (8-16) L 08/04/18 06:25 BUN 17 mg/dL (7-18) 08/04/18 06:25 Creatinine 1.0 mg/dL (0.55-1.3) 08/04/18 06:25 Creat Clearance w eGFR 53.62 (>60) 08/04/18 06:25 POC Glucometer 90.93475 UNITS (80-120) 08/04/18 06:17 Random Glucose 81 mg/dL (74-106) 08/04/18 06:25 Lactic Acid 1.8 mmol/L (0.4-2.0) 08/03/18 18:30 Calcium 8.5 mg/dL (8.5-10.1) 08/04/18 06:25 Phosphorus 3.4 mg/dL (2.5-4.9) 08/04/18 06:25 Magnesium 2.1 mg/dL (1.8-2.4) 08/04/18 06:25 Total Bilirubin 0.4 mg/dL (0.2-1) 08/03/18 18:29 AST 29 U/L (15-37) 08/03/18 18: ALT 28 U/L (13-61) 08/03/18 18:29 Alkaline Phosphatase 80 U/L (45-117) 08/03/18 18: Creatine Kinase 165 IU/L (26-192) 08/03/18 18:29 Creatine Kinase Index 1.2 % (0.0-5.0) 08/03/18 18:29 CK-MB (CK-2) 2.1 ng/mL (0.5-3.6) 08/03/18 18: Troponin I < 0.02 ng/ml (0.00-0.05) 08/04/18 06:25 Total Protein 6.5 g/dl (6.4-8.2) 08/03/18 18: Albumin 3.1 g/dl (3.4-5.0) L 08/03/18 18: Urine Color Ltyellow 08/03/18 00: Urine Appearance Clear 08/03/18 00: Urine pH 6.0 (5.0-8.0) 08/03/18 00:29 Ur Specific [place] 1.012 (1.010-1.035) 08/03/18 00:29 Urine Protein Negative (NEGATIVE) 08/03/18 00: Urine Glucose (UA) Negative (NEGATIVE) 08/03/18 00:29 Urine Ketones Negative (NEGATIVE) 08/03/18 00:29 Urine Blood Negative (NEGATIVE) 08/03/18 00: Urine Nitrite Negative (NEGATIVE) 08/03/18 00:29 Urine Bilirubin Negative (<2.0 mg/dL) 08/03/18 00:29 Urine Urobilinogen 2.0 mg/dL (0.2-1.0) H 08/03/18 00:29 Ur Leukocyte Esterase Trace (NEGATIVE) 08/03/18 00:29 Urine WBC (Auto) 6 /hpf (3-5) 08/03/18 00:29 Urine RBC (Auto) <1 /hpf (0-3) 08/03/18 00:29 Hyaline Casts 4 /lpf 08/03/18 00:29 Blood Type O POSITIVE 08/03/18 18:29 Antibody Screen Negative 08/03/18 18:29 ekg: nsr. nl intervals, anterior/anterolateral twi. similar to priors. cxr: clear lungs echo 10/2017: nl lv/rv, no sig valve path Echo 12/2016: nl lv/rv size/fn. impaired relaxation. 1+ mac Lexiscan stress MPI 01/2017: nl mpi, nl lvef carotid u/s 12/2016: mod bilateral plaque, no stenosis. carotid u/s 08/2018: mild-mod bilateral plaque, no stenosis. a/p: 77 yo with h/o HTN, HLD, IDDM,and GERD, and recurrent syncope s/p loop recorder placement p/w recurrent syncope. recurrent syncope - h/o recurrent syncope. Had neuro eval on prior admits for syncope --> thought to be vasovagal/neurocardiogenic. She was then sent for loop recorder (implanted 01/2017 at [facility], [employer]). - loop recorder interrogated when had syncope 10/2017--> no arrhythmia/ bradycardia despite prolonged episode of LOC. - similar episode 12/2017-->loop recorder was again interrogated--> No events occurred during pt's syncope. - Given multiple syncope episodes with normal loop recorder findings it is apparent that there is no arrhythmia/bradycardia related etiology of her syncope. - Orthostatic vitals negative here - no signs acs. Recent echo and stress unremarkable. 08/2018 carotid u/s unremarkable. - d/w with neurology 12/[address] Celaya is fairly certain pt's episodes are related to seizures. Rec'd neuro see pt again. If seizures are not thought to be cause would try florinef next. HTN -stable on diovan HL - statin cardiac layne stable for dc
[2018-08-04 14:10] VITALS: BP 143/78; PULSE 87; TEMP 98.6
--- NOTE | 2018-08-04 15:19 | PN ---
Progress Note (short form) - Note Progress Note: patient needs to be seen to neurology regarding syncope spoke to patient she doesnt see lynn anymore she only see dr marie will have him come see patient Problem List - Problems (1) Syncope Code(s): R55 - SYNCOPE AND COLLAPSE Qualifiers: Syncope type: unspecified Qualified Code(s): R55 - Syncope and collapse (2) HLD (hyperlipidemia) Code(s): E78.5 - HYPERLIPIDEMIA, UNSPECIFIED (3) Hypertension Code(s): I10 - ESSENTIAL (PRIMARY) HYPERTENSION
--- NOTE | 2018-08-04 15:33 | DS ---
Physical Examination Vital Signs: Vital Signs Temperature 98.6 F 08/04/18 14:00 Pulse Rate 87 08/04/18 14:00 Respiratory Rate 17 08/04/18 14:00 Blood Pressure 143/78 08/04/18 14:00 O2 Sat by Pulse Oximetry (%) 95 08/04/18 06:36 Constitutional: Yes: Calm Cardiovascular: Yes: Regular Rate and Rhythm, S1, S2 Respiratory: Yes: CTA Bilaterally Gastrointestinal: Yes: Normal Bowel Sounds, Soft Edema: No Neurological: Yes: Alert, Oriented Labs: CBC, BMP 08/04/18 06:25 08/04/18 06:25 Discharge Summary Reason For Visit: SYNCOPE Current Active Problems Syncope (Acute) Hospital Course: - Primary Care Physician PCP: Jaime Lopez - Admission Chief Complaint: Dizziness, Unsteady Gait History of Present Illness: This is a 77 y/o woman with a PMHx of: IDDM on Insulin Pump, HTN, Multiple Syncopal Episodes, s/p Loop Recorder, Seizures (on Keppra). Who presents to the ED s/p syncope,while standing at a restaurant. Patient recalls standing, then waking up to EMS, nothing in between, (+)LOC, unknown head trauma, Patient denies pain. Patient reports that this is her 7th event. Patient denies blurred vision, SOB, CP, palpitations. Patient denies fever, chills, cough, AP, N/V/D, constipation, dysuria. 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 Cardiovascular: Yes: HTN, Hyperlipdemia Gastrointestinal: Yes: GERD Endocrine: Yes: Diabetes Mellitus patent had ct scan done noegative and carotid doppler negtive as well seen by cardiology- syncope note related to cardiac event loop recorder has been interogated numerous times plan: dc home and fu with dr marie for EEG she doesnot see dr gama anymore Condition: Stable - Instructions Referrals: Kirt Marie MD [Staff Physician] - 1 Week (for EEG) Disposition: HOME - Home Medications Comprehensive Discharge Medication List: Ambulatory Orders Aspirin 81 mg PO DAILY 10/17/17 Esomeprazole Magnesium [Nexium 24Hr] 40 mg PO DAILY 10/17/17 Rosuvastatin Calcium [Crestor] 5 mg PO DAILY 10/17/17 Valsartan [Diovan] 80 mg PO DAILY 12/14/17 levETIRAcetam [Keppra -] 500 mg PO BID #60 tablet 12/17/17 Insulin Pump Cartridge 08/03/18
== END 2018-08-04 18:15 | disposition home or self-care (01) ==
LOC: JER 17:23 → JERBED 20:19
PROVIDERS: ADMIT Internal Medicine; ATTEND Family Medicine
PROC: 3E0337Z Introduction of Electrolytic and Water Balance Substance into Peripheral Vein, Percutaneous Approach (ICD-10-PCS; principal; 2018-08-03)
DX: R55 Syncope and collapse (principal); E11.9 Type 2 diabetes mellitus without complications; D64.9 Anemia, unspecified; I10 Essential (primary) hypertension; E78.5 Hyperlipidemia, unspecified; G40.909 Epilepsy, unspecified, not intractable, without status epilepticus; K21.9 Gastro-esophageal reflux disease without esophagitis; Z79.82 Long term (current) use of aspirin; Z96.41 Presence of insulin pump (external) (internal)
CPT/HCPCS: 36415; 70450-TC; 71045-TC-FY; 80048; 80053; 81003; 81015; 82550; 82553; 82803; 82962; 83605; 83735; 84100; 84484; 85025; 85610; 86850; 86900; 86901; 87040; 87086; 93005; 93010; 93880-TC; 96360; 99285-25; G0378

== ENCOUNTER 2019-07-13 14:25 | Inpatient (IN) | payer OTHER ==
[2019-07-13 14:54] VITALS: BMI 29.2
--- NOTE | 2019-07-13 16:09 | PDOC ---
History of Present Illness - General Chief Complaint: Syncope/Near Syncope Stated Complaint: SEIZURE Time Seen by Provider: 07/13/19 16:08 History Source: Patient, Care Provider Exam Limitations: No Limitations - History of Present Illness Initial Comments: 07/13/19 16:09 Derek Hernández is a 78F with PMH multiple seizure/syncopal episodes seen by Dr. Prado on Keppra, IDDM, HTN, HLD presenting with episode of AMS/seizure/ syncopal activity today. 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 Per witness at bedside, patient became unresponsive with a glassy-eyed appearance, began grunting, drooling, and shaking in the chair. Was unresponsive to voice. No fall from chair or head injury, no tongue biting, no loss of bowel/bladder continence. EMS called, and patient regained consciousness and was immediately back to baseline in the ambulance, total eisode lasted 20 minutes, no reported post-ictal changes. Per patient, has no recollection of event and denies prodromal symptoms, including chest pain, palpitations, SOB, fever, dizziness, abd pain, urinary sx , C/D, N/V, changes to vision or hearing. Patient reports feeling normal at this time. Keeps close records of her medical history with her, notes that she has had these random episodes on and off since 2011 and that the story is exactly the same each time. Per witness at bedside, had the same presentation when she was present the last time this happened last year. Sees Dr. Prado for neurology, has been on Keppra 500mg bid for some time, no changes, has been taking it as prescribed. Has loop recorder implanted. NKDA Denies tobacco, drug, alcohol use. Past History - Past Medical History Allergies/Adverse Reactions: Allergies Allergy/AdvReac Type Severity Reaction Status Date / Time No Known Allergies Allergy Verified 12/14/17 21:30 Home Medications: Ambulatory Orders Aspirin 81 mg PO DAILY 10/17/17 Rosuvastatin Calcium [Crestor] 5 mg PO DAILY 10/17/17 Valsartan [Diovan] 80 mg PO DAILY 12/14/17 levETIRAcetam [Keppra -] 500 mg PO BID #60 tablet 12/17/17 Insulin Pump Cartridge 08/03/18 Multivitamins [Tab-A-Vit -] 1 tab PO DAILY 07/13/19 Xalatan 0.005% Eye Drops - 1 drop OU HS 07/13/19 Anemia: No Asthma: No Cancer: No Cardiac Disorders: No CVA: No COPD: No CHF: No Dementia: No Diabetes: Yes (IDDM insulin pump) GI Disorders: Yes (GERD) Disorders: No HTN: Yes Hypercholesterolemia: Yes Liver Disease: No Seizures: No Thyroid Disease: No - Surgical History Cardiac Surgery: No Cholecystectomy: No - Immunization History Immunization Up to Date: Yes - Psycho Social/Smoking Cessation Hx Smoking Status: No Smoking History: Former smoker Have you smoked in the past 12 months: No Number of Cigarettes Smoked Daily: 0 Information on smoking cessation initiated: No Hx Alcohol Use: No Drug/Substance Use Hx: No Substance Use Type: None Hx Substance Use Treatment: No Cardiac Specific PMH - Complaint Specific PMHX Angina: No Cardiac Arrhythmia: No GERD: No Pacemaker: No Peripheral Vascular Disease: No Review of Systems - Review of Systems Able to Perform ROS?: Yes Is the patient limited Azeri proficient: No Constitutional: No: Chills, Fever, Weakness HEENTM: No: Eye Pain, Blurred Vision, Recent change in vision, Nose Pain, Throat Pain, Difficulty Swallowing Respiratory: No: Cough, Shortness of Breath, Wheezing Cardiac (ROS): No: Chest Pain, Edema, Lightheadedness, Palpitations, Syncope ABD/GI: Yes: Other (no abd pain). No: Constipated, Diarrhea, Nausea, Vomiting : No: Symptoms Reported Musculoskeletal: No: Symptoms Reported Integumentary: No: Symptoms Reported Neurological: Yes: Seizure. No: Headache, Numbness, Paresthesia, Tremors, Weakness Endocrine: No: Symptoms Reported Hematologic/Lymphatic: No: Symptoms Reported All Other Systems: Reviewed and Negative *Physical Exam - Vital Signs Last Vital Signs Temp Pulse Resp BP Pulse Ox 98 F 82 22 H 133/56 L 95 07/13/19 18:43 07/13/19 18:43 07/13/19 18:43 07/13/19 18:43 07/13/19 18:43 - Physical Exam General Appearance: Yes: Nourished, Appropriately Dressed. No: Apparent Distress HEENT: positive: EOMI, ALFONSO, Normal ENT Inspection, Normal Voice, Symmetrical, Pharynx Normal, Hearing Decreased, Hearing Grossly Normal, Other (has upper denture in place). negative: Scleral Icterus (R), Scleral Icterus (L), Muffled/ Hoarse voice, Pharyngeal Erythema, Tonsillar Exudate, Tonsillar Erythema, Sinus Tenderness Neck: positive: Trachea midline, Normal Thyroid, Supple. negative: Tender, Rigid, Lymphadenopathy (R), Lymphadenopathy (L) Respiratory/Chest: positive: Lungs Clear, Normal Breath Sounds. negative: Chest Tender, Respiratory Distress, Accessory Muscle Use, Labored Respiration, Crackles, Rales, Rhonchi Cardiovascular: positive: Regular Rhythm, Regular Rate. negative: Murmur Vascular Pulses: Dorsalis-Pedis (R): 2+, Doralis-Pedis (L): 2+ Gastrointestinal/Abdominal: positive: Normal Bowel Sounds, Flat, Soft. negative : Tender Extremity: positive: Normal Capillary Refill, Normal Inspection, Normal Range of Motion. negative: Tender Integumentary: positive: Normal Color, Dry, Warm Neurologic: positive: seamer elastic band II-XII NML intact, Fully Oriented, Alert, Normal Mood/ Affect, Normal Response, Motor Strength 5/5. negative: Facial Droop, Numbness ED Treatment Course - LABORATORY CBC & Chemistry Diagram: 07/13/19 16:30 07/13/19 16:30 - ADDITIONAL ORDERS Additional order review: Laboratory Results 07/13/19 07/13/19 07/13/19 22:56 16:30 16:30 PT with INR 12.60 INR 1.07 Sodium Potassium Chloride Carbon Dioxide Anion Gap BUN Creatinine Est GFR (CKD-EPI)AfAm Est GFR (CKD-EPI)NonAf POC Glucometer Random Glucose Calcium Magnesium Total Bilirubin AST ALT Alkaline Phosphatase Creatine Kinase Creatine Kinase Index CK-MB (CK-2) Troponin I Total Protein Albumin TSH Cancelled Free T4 Urine Color Yellow Urine Appearance Clear Urine pH 8.0 D Ur Specific [place] 1.012 Urine Protein Negative Urine Glucose (UA) Negative Urine Ketones Negative Urine Blood Negative Urine Nitrite Negative Urine Bilirubin Negative Urine Urobilinogen 0.2 Ur Leukocyte Esterase Trace Urine WBC (Auto) 11 Urine RBC (Auto) 5 Urine Casts (Auto) 1 U Epithel Cells (Auto) 2.1 Urine Bacteria (Auto) 226.8 07/13/19 07/13/19 07/13/19 16:30 16:30 16:30 PT with INR INR Sodium 140 Potassium 5.5 H Chloride 106 Carbon Dioxide 27 Anion Gap 7 L BUN 21.6 H Creatinine 1.2 Est GFR (CKD-EPI)AfAm 49.78 Est GFR (CKD-EPI)NonAf 42.95 POC Glucometer Random Glucose 122 H Calcium 9.0 Magnesium Cancelled 2.3 Total Bilirubin 0.5 AST 87 H ALT 47 Alkaline Phosphatase 100 Creatine Kinase 165 Creatine Kinase Index 1.1 CK-MB (CK-2) 1.9 Troponin I < 0.02 Total Protein 7.4 Albumin 3.4 TSH 9.13 H Free T4 1.06 Urine Color Urine Appearance Urine pH Ur Specific [place] Urine Protein Urine Glucose (UA) Urine Ketones Urine Blood Urine Nitrite Urine Bilirubin Urine Urobilinogen Ur Leukocyte Esterase Urine WBC (Auto) Urine RBC (Auto) Urine Casts (Auto) U Epithel Cells (Auto) Urine Bacteria (Auto) 07/13/19 14:46 PT with INR INR Sodium Potassium Chloride Carbon Dioxide Anion Gap BUN Creatinine Est GFR (CKD-EPI)AfAm Est GFR (CKD-EPI)NonAf POC Glucometer 143 Random Glucose Calcium Magnesium Total Bilirubin AST ALT Alkaline Phosphatase Creatine Kinase Creatine Kinase Index CK-MB (CK-2) Troponin I Total Protein Albumin TSH Free T4 Urine Color Urine Appearance Urine pH Ur Specific [place] Urine Protein Urine Glucose (UA) Urine Ketones Urine Blood Urine Nitrite Urine Bilirubin Urine Urobilinogen Ur Leukocyte Esterase Urine WBC (Auto) Urine RBC (Auto) Urine Casts (Auto) U Epithel Cells (Auto) Urine Bacteria (Auto) 07/13/19 07/13/19 16:30 14:46 RBC 4.80 MCV 86.1 MCHC 32.0 RDW 17.1 H MPV 9.5 D Neutrophils % 63.7 D Lymphocytes % 27.5 D Monocytes % 5.7 Eosinophils % 2.6 Basophils % 0.5 POC Glucometer 143 - RADIOLOGY Radiology Studies Ordered: Category Date Time Status HEAD CT WITHOUT CONTRAST [CT] Stat CT Scan 07/13/19 17:32 Completed CHEST X-RAY PORTABLE* [RAD] Stat Radiology 07/13/19 16:35 Taken - Medications Given in the ED: ED Medications Discontinued Medications Generic Name Dose Route Start Last Admin Trade Name Freq PRN Reason Stop Dose Admin Sodium Chloride 1,000 mls @ 1,000 mls/hr 07/13/19 17:53 07/13/19 18:20 Normal Saline - IV 07/13/19 18:52 1,000 mls/hr ASDIR STA Administration Levetiracetam 1,000 mg 07/13/19 20:21 07/13/19 22:57 Keppra Injection - IVPB 07/13/19 20:22 1,000 mg ONCE ONE Administration Medical Decision Making - Medical Decision Making 07/13/19 16:09 Derek Hernández is a 78F with PMH multiple seizure/syncopal episodes seen by Dr. Prado on Keppra, IDDM, HTN, HLD presenting with episode of AMS/seizure/ syncopal activity today. Patient presentation is most consistent with seizures, given unresponsiveness and lack of prodromal symptoms or triggers, lack of chest pain/palpitations. However, need to rule out cardiac syncope vs. TIA. Getting: ECG CMP CBC CP Coags Mag Giving 1L NS for rehydration given difficulty getting labs 07/13/19 16:[address] Prado her neurologist for further collateral, but he is out of the office and not as familiar with the patient, recommends eval and formal consult. ECG shows NSR with T wave inversions in V1-V4 that are consistent with prior studies and confirmed by Dr. Ratliff, no ischemic changes, HR 85, QTc 459. Ordering Keppra level. Ordering CT head non-con for further eval of syncope, last CTH 08/201807/13/19 17:[address] Cárdenas's office for consult. 07/13/19 19:13 Lab review delayed due to technical error. K elevated to 5.5, no evidence of palpitations, ECG normal TSH elevated to 9.14 consistent with hypothyroidism. Trop negative, Cr. 1.[address] Head Impression: No CT evidence of acute intracranial pathology. The intracranial structures demonstrate no definite interval change in comparison to a prior CT exam of 08/03/2018. Interval development of mild to moderate mucosal thickening is seen within the right sphenoid sinus consistent with sinusitis which is probably chronic or subacute. Correlate clinically. 07/13/19 19:03 Added on a Free T4 level given elevated TSH. Called Dr. Cárdenas's office again for consult. 07/13/19 20:[address] Cárdenas. Believes that symptoms are consistent with seizure, recommends 1g Keppra in ED and d/c with 750mg Keppra bid. However, still unsure if this episode is seizure vs. syncope, her loop recorder needs interrogation and further workup of her heart. 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 07/13/19 22:[address] Montalvo and Dr. Perera regarding admission to tele/obs for syncope w/u. Discharge - Discharge Information Problems reviewed: Yes Clinical Impression/Diagnosis: Seizure Syncope Qualifiers: Syncope type: unspecified Qualified Code(s): R55 - Syncope and collapse Hypothyroidism Qualifiers: Hypothyroidism type: unspecified Qualified Code(s): E03.9 - Hypothyroidism, unspecified Condition: Stable - Admission Yes - Follow up/Referral - Patient Discharge Instructions - Post Discharge Activity NIH Stroke Scale - Last Known Well Date/Time & Onset Date Last Known Well: 07/13/19 Time Last Known Well: 13:00 - Initial Evaluation Level of consciousness: Alert Ask patient the month and their age: Answers both correctly Ask patient to open & close eyes; make fist and let go: Obeys both correctly Best gaze (horizontal eye movement): Normal Visual field testing: No visual field loss Facial paresis (Show teeth/raise eyebrows/close eyes tight): Normal symmetrical movement Motor Function: Left Arm: Normal Motor Function: Right Arm: Normal (extends arm 90 (or 45) degrees for 10 seconds without drift Motor Function: Left Leg: Normal (extends leg 30 degrees for 5 seconds without drift) Motor Function: Right Leg: Normal (extends leg 30 degrees for 5 seconds without drift) Limb Ataxia: No ataxia Sensory(Use pinprick test arms,legs,trunk,face/side to side): Normal Best language (Describe picture, name items, read sentences): No Aphasia Dysarthria (read several words): Normal articulation Extinction and Inattention: No abnormality - Total Score NIH Stroke Scale Score: 0
[2019-07-13 17:03] LABS: BASO % 0.5 % (0-2.0); EOS % 2.6 % (0-4.5); HEMATOCRIT 41.3 % (32.4-45.2); HEMOGLOBIN 13.2 GM/dL (10.7-15.3); LYMPH % 27.5 % (8-40); MCH 27.6 pg (25.7-33.7); MEAN CELL VOLUME 86.1 fl (80-96); MEAN PLT VOLUME 9.5 fl (7.5-11.1); MONO % 5.7 % (3.8-10.2); NEUT % 63.7 % (42.8-82.8); PLATELET COUNT 198 K/MM3 (134-434); RDW 17.1 % (11.6-15.6); WHITE BLOOD COUNT 5.5 K/mm3 (4.0-10.0)
[2019-07-13 17:35] LABS: ALBUMIN 3.4 g/dl (3.4-5.0); BILIRUBIN,TOTAL 0.5 mg/dL (0.2-1); BLOOD UREA NITROGEN 21.6 mg/dL (7-18); CREATININE 1.2 mg/dL (0.55-1.3); MAGNESIUM 2.3 mg/dL (1.8-2.4); POTASSIUM 5.5 mmol/L (3.5-5.1); TOT PROT 7.4 g/dl (6.4-8.2)
[2019-07-13 17:39] LABS: INR 1.07 (0.83-1.09); PROTHROMBIN TIME (PATIENT) 12.6 SEC (9.7-13.0)
[2019-07-13] MEDS ORDERED: SODIUM CHLORIDE 1,000 ML IV STA (17:53)
[2019-07-13] MEDS ORDERED: levETIRAcetam 500 MG/5 ML INJECTION VIAL IVPB ONE ×2 (20:21→22:46)
--- NOTE | 2019-07-13 20:37 | PDOC ---
Documentation entered by Kelly Rosales SCRIBE, acting as scribe for Snehal Hernandez MD. Snehal Hernandez MD: This documentation has been prepared by the Bobby butts Xhesika, SCRIBE, under my direction and personally reviewed by me in its entirety. I confirm that the documentation accurately reflects all work, treatment, procedures, and medical decision making performed by me. 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 Patient notes she was sitting on the chair at the [facility]. Patient does not recall the event, however, witness at bedside notes the patient became unresponsive for approximately 20 minutes with a glassy-eyes, began drooling, and shaking in the chair. Witness denies any falls, head injury , patient hitting her head, or incontinence. The patient denies chest pain, shortness of breath, headache and dizziness. Denies fever, chills, cough, nausea, vomiting, diarrhea and constipation. Denies dysuria, frequency, urgency and hematuria. Allergies: NKDA PCP: PMDs: Dr. Lopez Flight Test Engineer: Dr. Esparza - Physicial Exam PE: 07/13/19 18:12 GENERAL: Awake, alert, and fully oriented, in no acute distress HEAD: No signs of trauma EYES: PERRLA, EOMI, sclera anicteric, conjunctiva clear ENT: Auricles normal inspection, hearing grossly normal, nares patent, oropharynx clear without exudates. Moist mucosa NECK: Normal ROM, supple, no lymphadenopathy, JVD, or masses LUNGS: Breath sounds equal, clear to auscultation bilaterally. No wheezes, and no crackles HEART: Regular rate and rhythm, normal S1 and S2, no murmurs, rubs or gallops ABDOMEN: Soft, nontender, normoactive bowel sounds. No guarding, no rebound. No masses EXTREMITIES: Normal range of motion, no edema. No clubbing or cyanosis. No cords , erythema, or tenderness BACK: No midline spinal tenderness in cervical/thoracic/lumbar region NEUROLOGICAL: Normal speech, cranial nerves intact, negative pronator drift, 5/ 5 strength in all 4 extremities, normal sensation to light touch in all 4 extremities, normal cerebellar exam, normal gait, normal reflexes and tone SKIN: Warm, Dry, normal turgor, no rashes or lesions noted. - Medical Decision Making 07/13/19 20:28 78yo F presents to the ED with seizure vs syncope Vitals/exam wnl Case discussed with Dr. Cárdenas (covering for Dr. Prado), pt has never had + EEG. Recommends loading with Keppra 1G On review of EMR, no events on previous loop recorder Unclear etiology of sxs, however prolonged LOC concerning for cardiac arrhythmia Plan for labs, CTH, CXR, CTH, obs admission for monitoring
[2019-07-13 23:09] LABS: EPI CELLS 2.1 /HPF (0-5/HPF); HYALINE CASTS 1 /lpf (0-8); URINE APPEARANCE CLEAR; URINE BACTERIA 226.8 /hpf (NEGATIVE); URINE BILIRUBIN NEGATIVE (NEGATIVE); URINE COLOR YELLOW; URINE GLUCOSE (UA) NEGATIVE (NEGATIVE); URINE KETONE NEGATIVE (NEGATIVE); URINE LEUK ESTERASE TRACE (NEGATIVE); URINE NITRITE NEGATIVE (NEGATIVE); URINE PROTEIN NEGATIVE (NEGATIVE); URINE RBC 5 /hpf (0-4); URINE UROBILINOGEN 0.2 mg/dL (0.2-1.0); URINE WBC 11 /hpf (0-5)
--- NOTE | 2019-07-14 00:03 | HP ---
CHIEF COMPLAINT: Seizure vs. Syncope HISTORY OF PRESENT ILLNESS: Seen and examined; please refer to resident note for further historical information. Briefly, this is a 78 y/o female presenting to the ER with a CC of recurring seizure vs. syncope. Potential postictal state with no loss of bowel or bladder function; is on AED at home with keppra 500; given 1g IV in the ER and ER spoke with neuro who recommended increasing to 750 BID PO and outpatient followup. There was concern from ER photography intern that this could be syncope, but the history suggests seizure episode and given neurology input am less suspicious of syncope. They have previously been seen by CV with loop recorder, etc. for this issue and have not has any malignant arrhythmias noted. No indication for stat CV consult but can consider; no high degree AVB noted in ER. PAST MEDICAL HISTORY: Per above PAST SURGICAL HISTORY: No neurosurgical or cardiac procedures Social History: No homlessness, IVDU, EtOH abuse Allergies No Known Allergies Allergy (Verified 12/14/17 21:30) HOME MEDICATIONS: Home Medications Medication Instructions Recorded Aspirin 81 mg PO DAILY 10/17/17 Rosuvastatin Calcium [Crestor] 5 mg PO DAILY 10/17/17 Valsartan [Diovan] 80 mg PO DAILY 12/14/17 levETIRAcetam [Keppra -] 500 mg PO BID #60 tablet 12/17/17 Insulin Pump Cartridge 08/03/18 Multivitamins [Tab-A-Vit -] 1 tab PO DAILY 07/13/19 Xalatan 0.005% Eye Drops - 1 drop OU HS 07/13/19 REVIEW OF SYSTEMS 10 sys ROS done and negative aside from HPI PHYSICAL EXAMINATION Vital Signs - 24 hr 07/13/19 07/13/19 07/13/19 14:30 14:35 18:43 Temperature 97.7 F 98 F Pulse Rate 86 86 Pulse Rate [ 82 Left Radial] Respiratory 18 22 H Rate Blood Pressure 106/48 L Blood Pressure 133/56 L [Right Arm] O2 Sat by Pulse 95 95 95 Oximetry (%) GENERAL: Awake, alert, and fully oriented, in no acute distress. HEAD: Normal with no signs of trauma. EYES: Pupils equal, round and reactive to light, extraocular movements intact, sclera anicteric, conjunctiva clear. No lid lag. EARS, NOSE, THROAT: Ears normal, nares patent, oropharynx clear without exudates. NECK: Normal range of motion, supple without lymphadenopathy, JVD, or masses. LUNGS: Breath sounds equal, clear to auscultation bilaterally. No wheezes, and no crackles. No accessory muscle use. HEART: Regular rate and rhythm, normal S1 and S2 without murmur, rub or gallop. ABDOMEN: Soft, nontender, not distended, normoactive bowel sounds, no guarding, no rebound, no masses. No hepatomegaly or splenomegaly. MUSCULOSKELETAL: Normal range of motion at all joints. No bony deformities or tenderness. NEUROLOGICAL: Cranial nerves II-XII intact. Normal speech. Normal gait. PSYCHIATRIC: Cooperative. Good eye contact. Appropriate mood and affect. SKIN: Warm, dry, normal turgor, no rashes or lesions noted, normal capillary refill. Laboratory Results - last 24 hr 07/13/19 07/13/19 07/13/19 14:46 16:30 16:30 WBC 5.5 RBC 4.80 Hgb 13.2 Hct 41.3 MCV 86.1 MCH 27.6 MCHC 32.0 RDW 17.1 H Plt Count 198 MPV 9.5 D Absolute Neuts (auto) 3.5 Neutrophils % 63.7 D Lymphocytes % 27.5 D Monocytes % 5.7 Eosinophils % 2.6 Basophils % 0.5 Nucleated RBC % 0 PT with INR INR Sodium Potassium Chloride Carbon Dioxide Anion Gap BUN Creatinine Est GFR (CKD-EPI)AfAm Est GFR (CKD-EPI)NonAf POC Glucometer 143 Random Glucose Calcium Magnesium Total Bilirubin AST ALT Alkaline Phosphatase Creatine Kinase 165 Creatine Kinase Index 1.1 CK-MB (CK-2) 1.9 Troponin I < 0.02 Total Protein Albumin TSH 9.13 H Free T4 Urine Color Urine Appearance Urine pH Ur Specific [place] Urine Protein Urine Glucose (UA) Urine Ketones Urine Blood Urine Nitrite Urine Bilirubin Urine Urobilinogen Ur Leukocyte Esterase Urine WBC (Auto) Urine RBC (Auto) Urine Casts (Auto) U Epithel Cells (Auto) Urine Bacteria (Auto) 07/13/19 07/13/19 07/13/19 16:30 16:30 16:30 WBC RBC Hgb Hct MCV MCH MCHC RDW Plt Count MPV Absolute Neuts (auto) Neutrophils % Lymphocytes % Monocytes % Eosinophils % Basophils % Nucleated RBC % PT with INR 12.60 INR 1.07 Sodium 140 Potassium 5.5 H Chloride 106 Carbon Dioxide 27 Anion Gap 7 L BUN 21.6 H Creatinine 1.2 Est GFR (CKD-EPI)AfAm 49.78 Est GFR (CKD-EPI)NonAf 42.95 POC Glucometer Random Glucose 122 H Calcium 9.0 Magnesium 2.3 Cancelled Total Bilirubin 0.5 AST 87 H ALT 47 Alkaline Phosphatase 100 Creatine Kinase Creatine Kinase Index CK-MB (CK-2) Troponin I Total Protein 7.4 Albumin 3.4 TSH Free T4 1.06 Urine Color Urine Appearance Urine pH Ur Specific [place] Urine Protein Urine Glucose (UA) Urine Ketones Urine Blood Urine Nitrite Urine Bilirubin Urine Urobilinogen Ur Leukocyte Esterase Urine WBC (Auto) Urine RBC (Auto) Urine Casts (Auto) U Epithel Cells (Auto) Urine Bacteria (Auto) 07/13/19 07/13/19 16:30 22:56 WBC RBC Hgb Hct MCV MCH MCHC RDW Plt Count MPV Absolute Neuts (auto) Neutrophils % Lymphocytes % Monocytes % Eosinophils % Basophils % Nucleated RBC % PT with INR INR Sodium Potassium Chloride Carbon Dioxide Anion Gap BUN Creatinine Est GFR (CKD-EPI)AfAm Est GFR (CKD-EPI)NonAf POC Glucometer Random Glucose Calcium Magnesium Total Bilirubin AST ALT Alkaline Phosphatase Creatine Kinase Creatine Kinase Index CK-MB (CK-2) Troponin I Total Protein Albumin TSH Cancelled Free T4 Urine Color Yellow Urine Appearance Clear Urine pH 8.0 D Ur Specific [place] 1.012 Urine Protein Negative Urine Glucose (UA) Negative Urine Ketones Negative Urine Blood Negative Urine Nitrite Negative Urine Bilirubin Negative Urine Urobilinogen 0.2 Ur Leukocyte Esterase Trace Urine WBC (Auto) 11 Urine RBC (Auto) 5 Urine Casts (Auto) 1 U Epithel Cells (Auto) 2.1 Urine Bacteria (Auto) 226.8 Diagnostics reviewed; CT head with no acute abnl EKG/tele discussed and reviewed with ER Prior consultations noted ASSESSMENT/PLAN: Presents with likely seizure episode; neurology advised OP followup and increasing keppra to 750. Less lkikely syncope but can check echo and monitor 12 hours telemetry. Continue home meds for HTN, HLD. Checking orthostatics today. Hesitent to increase doses of meds; can discuss if she desires to change direction of tx but following it security consultant recs. -Breakthrough seizures -Atypical syncope hx s/p CV eval, loop recorder -HTN -HLD To Dr. Chase in AM Visit type - Emergency Visit Emergency Visit: Yes ED Registration Date: 07/14/19 Care time: The patient presented to the Emergency Department on the above date and was hospitalized for further evaluation of their emergent condition. - New Patient This patient is new to me today: Yes Date on this admission: 07/14/19 - Critical Care Critical Care patient: No
[2019-07-14] MEDS: HEPARIN NA (PORCINE) 5,000 UNITS/ML 1ML VIAL SQ SCH ×2 (00:29→10:00)
[2019-07-14 08:32] VITALS: TEMP 98
--- NOTE | 2019-07-14 08:49 | PN ---
Progress Note, Physician - Current Medication List Current Medications: Active Medications Heparin Sodium (Porcine) (Heparin -) 5,000 unit SQ BID MACIEL Last Admin: 07/14/19 00:29 Dose: 5,000 unit - Objective Vital Signs: Vital Signs Temperature 98.0 F 07/14/19 08:32 Pulse Rate 81 07/14/19 08:32 Respiratory Rate 17 07/14/19 08:32 Blood Pressure 147/85 07/14/19 08:32 O2 Sat by Pulse Oximetry (%) 98 07/14/19 08:32 Labs: CBC, BMP 07/13/19 16:30 07/13/19 16:30 INR, PTT INR 1.07 (0.83-1.09) 07/13/19 16:30
--- NOTE | 2019-07-14 12:11 | CON.NEURO ---
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 Cardio/Vascular: Yes: HTN, Hyperlipdemia Gastrointestinal: Yes: GERD Endocrine: Yes: Diabetes Mellitus - Past Surgical History Past Surgical History: Yes: None - Alcohol/Substance Use Hx Alcohol Use: No History of Substance Use: reports: None - Smoking History Smoking history: Former smoker Have you smoked in the past 12 months: No Aproximately how many cigarettes per day: 0 - Social History ADL: Independent History of Recent Travel: No Home Medications - Allergies Allergies/Adverse Reactions: Allergies Allergy/AdvReac Type Severity Reaction Status Date / Time No Known Allergies Allergy Verified 12/14/17 21:30 - Home Medications Home Medications: Ambulatory Orders Aspirin 81 mg PO DAILY 10/17/17 Rosuvastatin Calcium [Crestor] 5 mg PO DAILY 10/17/17 Valsartan [Diovan] 80 mg PO DAILY 12/14/17 levETIRAcetam [Keppra -] 500 mg PO BID #60 tablet 12/17/17 Insulin Pump Cartridge 08/03/18 Multivitamins [Tab-A-Vit -] 1 tab PO DAILY 07/13/19 Xalatan 0.005% Eye Drops - 1 drop OU HS 07/13/19 Physical Exam-Neuro Vital Signs: Vital Signs Temperature 98.0 F 07/14/19 08:32 Pulse Rate 81 07/14/19 08:32 Respiratory Rate 17 07/14/19 08:32 Blood Pressure 147/85 07/14/19 08:32 O2 Sat by Pulse Oximetry (%) 98 07/14/19 08:32 Labs: CBC, BMP 07/13/19 16:30 07/13/19 16:30 INR, PTT INR 1.07 (0.83-1.09) 07/13/19 16:30 Assessment/Plan CC Episode of shaking HPI 78 year old female history of epilepsy on keppra 500 mg po bid. Patient has these episode started in 2011 and she has total of 8 episode so far. 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 Paitent became drooling and shaking in chair. She was given iv keppra in ed. Patient had ct hea and it was normal. Episode lasted 20 minute and there was no post ictal changes, no incontinence or bladder incontinence. NKDA Denies tobacco, drug, alcohol use. Past History - Past Medical History Allergies/Adverse Reactions: Allergies Allergy/AdvReac Type Severity Reaction Status Date / Time No Known Allergies Allergy Verified 12/14/17 21:30 Home Medications: Ambulatory Orders Aspirin 81 mg PO DAILY 10/17/17 Rosuvastatin Calcium [Crestor] 5 mg PO DAILY 10/17/17 Valsartan [Diovan] 80 mg PO DAILY 12/14/17 levETIRAcetam [Keppra -] 500 mg PO BID #60 tablet 12/17/17 Insulin Pump Cartridge 08/03/18 Multivitamins [Tab-A-Vit -] 1 tab PO DAILY 07/13/19 Xalatan 0.005% Eye Drops - 1 drop OU HS 07/13/19 NEUROLOGICAL EXAMINATION Alert oriented x 3 , neck is supple, vital stable, afebrile eomi, pupils reactive no face asymmetry moving all ext sensation is normal ct head is noraml Assessment/Plan 78 yea rold female came with episode of shaking, and she has history of cardiac disease and work up has been negative in past, including mri of brain ,eeg . Loc and seizure episodes suspicious for breakthrough seizure Plan: agree with loading dose of iv keppra - suggest to increase keppra to 750 mg po bid and patient is reluctant to increase dose - patient can follow up outpatient Thankign you so much Tonio Cárdenas MD
[2019-07-14] MEDS ORDERED: levETIRAcetam 250 MG TABLET (FP) PO SCH (12:15)
[2019-07-14] MEDS ORDERED: VALSARTAN 80 MG TABLET (UD) PO SCH (12:15)
[2019-07-14] MEDS ORDERED: levETIRAcetam 500 MG TABLET (FP) PO ONE (12:31)
--- NOTE | 2019-07-14 12:42 | DS ---
Physical Examination Vital Signs: Vital Signs Temperature 98.0 F 07/14/19 08:32 Pulse Rate 81 07/14/19 08:32 Respiratory Rate 17 07/14/19 08:32 Blood Pressure 147/85 07/14/19 08:32 O2 Sat by Pulse Oximetry (%) 98 07/14/19 08:32 Constitutional: Yes: No Distress Eyes: Yes: WNL HENT: Yes: WNL Neck: Yes: WNL Cardiovascular: Yes: Regular Rate and Rhythm Respiratory: Yes: WNL Gastrointestinal: Yes: WNL Musculoskeletal: Yes: WNL Extremities: Yes: WNL Edema: No Peripheral Pulses WNL: Yes Integumentary: Yes: WNL Wound/Incision: Yes: Clean/Dry Neurological: Yes: Pre-Existing Deficit, Other Psychiatric: Yes: WNL Labs: CBC, BMP 07/13/19 16:30 07/13/19 16:30 Discharge Summary Problems reviewed: Yes Reason For Visit: SEIZURE,SYNCOPE Current Active Problems Hypothyroidism (Acute) Seizure (Acute) Syncope (Acute) Procedures: Principal: CT HEAD Other Procedures: LABS/XRAYS Hospital Course: ADMITTED FOR SEIZURE NEUROLOGY WORKUP, PATIENT DENIES ANY PAIN OR HEADACHE WANTS TO GO HOME Health Concerns: FOLLOW UP WITH DR KNAPP HER PMD IN 2-3 DAYS Plan of Treatment: F/U WITH NEUROLOGY Goals: ADMITTED FOR SEIZURE MONITORED WILL F/U WITH NEUROLOGY AND PMD IN 2-3 DAYS REFUSING TO INCREASE HER KEPPRA TO 750MG BID RECOMMENDED BY NEUROLOGY. Condition: Stable - Instructions Diet, Activity, Other Instructions: STOP VALSAARTAN UNTIL DR KNAPP SEES YOU REPEAT BMP FOR HYPERKALEMIA Referrals: Jaime Lopez MD [Primary Care Provider] - Disposition: HOME - Home Medications Comprehensive Discharge Medication List: Ambulatory Orders Aspirin 81 mg PO DAILY 10/17/17 Rosuvastatin Calcium [Crestor] 5 mg PO DAILY 10/17/17 Valsartan [Diovan] 80 mg PO DAILY 12/14/17 levETIRAcetam [Keppra -] 500 mg PO BID #60 tablet 12/17/17 Insulin Pump Cartridge 08/03/18 Multivitamins [Tab-A-Vit -] 1 tab PO DAILY 07/13/19 Xalatan 0.005% Eye Drops - 1 drop OU HS 07/13/19 Prescription Drug Monitoring Program (I-STOP) results: I-STOP not reviewed
[2019-07-14] MEDS: ROSUVASTATIN CA 5 MG TABLET (FP) PO SCH ×2 (13:19→13:30)
[2019-07-14 13:35] VITALS: BP 161/87; PULSE 88
[2019-07-14 13:55] LABS: BLOOD UREA NITROGEN 19.3 mg/dL (7-18); CALCIUM 9.5 mg/dL (8.5-10.1); CREATININE 1.1 mg/dL (0.55-1.3); POTASSIUM 4.3 mmol/L (3.5-5.1)
--- NOTE | 2019-07-14 14:56 | EKG ---
Test Reason : Blood Pressure : / mmHG Vent. Rate : 080 BPM Atrial Rate : 080 BPM P-R Int : 128 ms QRS Dur : 076 ms QT Int : 400 ms P-R-T Axes : 038 073 080 degrees QTc Int : 461 ms POOR DATA QUALITY, INTERPRETATION MAY BE ADVERSELY AFFECTED NORMAL SINUS RHYTHM T WAVE ABNORMALITY, CONSIDER ANTERIOR ISCHEMIA ABNORMAL ECG WHEN COMPARED WITH ECG OF 13-JUL-2019 16:50, NO SIGNIFICANT CHANGE WAS FOUND Confirmed by Eneida Tidwell ([id number]) on 07/14/2019 2:56:21 PM Referred By: Confirmed By:Eneida Tidwell
[2019-07-14] MEDS ORDERED: LATANOPROST 0.005% OPHTH SOLN 2.5ML BOTTLE OU SCH (22:00)
[2019-07-15] MEDS ORDERED: INSULIN PUMP CARTRIDGE AD SCH (07:00)
--- NOTE | 2019-07-15 08:26 | EKG ---
Test Reason : Blood Pressure : / mmHG Vent. Rate : 085 BPM Atrial Rate : 085 BPM P-R Int : 118 ms QRS Dur : 072 ms QT Int : 386 ms P-R-T Axes : 084 053 106 degrees QTc Int : 459 ms POOR DATA QUALITY, INTERPRETATION MAY BE ADVERSELY AFFECTED NORMAL SINUS RHYTHM T WAVE ABNORMALITY, CONSIDER ANTEROLATERAL ISCHEMIA ABNORMAL ECG WHEN COMPARED WITH ECG OF 03-AUG-2018 17:37, NO SIGNIFICANT CHANGE WAS FOUND Confirmed by Eneida Tidwell ([id number]) on 07/15/2019 8:26:33 AM Referred By: Confirmed By:Eneida Tidwell
[2019-07-15] MEDS ORDERED: ASPIRIN 81 MG CHEWABLE TABLETS PO SCH (10:00)
== END 2019-07-14 15:00 | disposition home or self-care (01) | DRG 101 ==
LOC: JER 14:25 → JERBED 19:58 → OBSVTOIN 07-14
PROVIDERS: ADMIT Internal Medicine; ATTEND Family Medicine
DX: G40.909 Epilepsy, unspecified, not intractable, without status epilepticus (principal); R55 Syncope and collapse; E03.9 Hypothyroidism, unspecified; K21.9 Gastro-esophageal reflux disease without esophagitis; E11.9 Type 2 diabetes mellitus without complications; I10 Essential (primary) hypertension; E78.5 Hyperlipidemia, unspecified; E87.5 Hyperkalemia; Z95.818 Presence of other cardiac implants and grafts
CPT/HCPCS: 36415; 70450-TC; 71045-TC-FY; 80048; 80053; 80177; 81003; 82550; 82553; 82962; 83735; 84439; 84443; 84484; 85025; 85610; 87086; 93005; 93010; 99285-25; G0378; J1644; J7030

== ENCOUNTER 2020-04-11 00:04 | Inpatient (IN) | payer OTHER ==
--- NOTE | 2020-04-11 00:18 | PDOC ---
History of Present Illness - General Stated Complaint: FALL AND SYNCOPE Time Seen by Provider: 04/11/20 00:17 History Source: Patient Exam Limitations: No Limitations - History of Present Illness Initial Comments: 04/11/20 00:17 Derek Hernández is an 79F with PMH multiple seizure/syncopal episodes seen by Drs. Baptiste and Johan on Keppra, IDDM, HTN, HLD presenting with syncopal episode and fall today. Has been seen at [facility] in the past for similar episodes, last time in July 2019 when I saw patient last. At that time had seizure vs. syncope symptoms and was admitted for neuro/cards evaluation and was discharged home after negative workup. Today at 21:30 was at home by her table about to take her PM medications when she says she must have passed out. Unwitnessed, unknown if seizure-like acti vity, denies tongue-biting or loss of bowel/bladder continence. Found by niece, EMS called. Denies chest pain, palpitation, dizziness, SOB, abd pain, urinary sx, fever/chills prior. Denies any pain or injury after fall. Has been taking all medications consistently prior to today. Missed PM 500mg Keppra dose. Has loop recorder in place for cardiac monitoring, unknown make/model. Last oral intake at lunch without issue. No prior history of AFIB, DVT, or CVA/TIA, not on AC. Currently says she is back to normal but does not remember the event, no other symptoms. No muscle weakness, dizziness, chest pain, palpitations, SOB, vision changes, pain at this time. PMH: [facility] Cards: Oliva Neuro: Johan Past History - Medical History Allergies/Adverse Reactions: Allergies Allergy/AdvReac Type Severity Reaction Status Date / Time No Known Allergies Allergy Verified 12/14/17 21:30 Home Medications: Ambulatory Orders Aspirin 81 mg PO DAILY 10/17/17 Rosuvastatin Calcium [Crestor] 10 mg PO DAILY 10/17/17 levETIRAcetam [Keppra -] 500 mg PO BID #60 tablet 12/17/17 Insulin Pump Cartridge 08/03/18 Multivitamins [Multivit ([facility] Formulary)] 1 tab PO DAILY 07/13/19 Xalatan 0.005% Eye Drops - 1 drop OU HS 07/13/19 Anemia: No Asthma: No Cancer: No Cardiac Disorders: No CVA: No COPD: No CHF: No Dementia: No Diabetes: Yes (IDDM insulin pump) GI Disorders: Yes (GERD) Disorders: No HTN: Yes Hypercholesterolemia: Yes Liver Disease: No Seizures: No Thyroid Disease: No - Surgical History Cardiac Surgery: No Cholecystectomy: No - Immunization History Immunization Up to Date: Yes - Psycho-Social/Smoking History Smoking Status: No Smoking History: Former smoker Have you smoked in the past 12 months: No Number of Cigarettes Smoked Daily: 0 Review of Systems - Review of Systems Able to Perform ROS?: Yes Constitutional: No: Chills, Fever, Loss of Appetite, Malaise HEENTM: No: Eye Pain, Blurred Vision, Mouth Pain, Dental Problems, Difficulty Swallowing Respiratory: No: Cough, Shortness of Breath, SOB with Exertion, SOB at Rest Cardiac (ROS): Yes: Syncope. No: Chest Pain, Edema, Irregular Heart Rate, Lightheadedness, Palpitations ABD/GI: No: Constipated, Diarrhea, Nausea, Poor Appetite, Poor Fluid Intake, Vomiting : No: Symptoms Reported Musculoskeletal: No: Back Pain, Muscle Weakness, Neck Pain Integumentary: No: Symptoms Reported Neurological: No: Headache, Numbness, Paresthesia, Weakness, Unsteady Gait, Ataxia, Dizziness Endocrine: No: Symptoms Reported Hematologic/Lymphatic: No: Symptoms Reported All Other Systems: Reviewed and Negative *Physical Exam - Physical Exam General Appearance: Yes: Nourished, Appropriately Dressed. No: Apparent Distress, Intoxicated HEENT: positive: EOMI, ALFONSO, Normal Voice, Symmetrical, Pharynx Normal, Hearing Grossly Normal, Other (NCAT). negative: Scleral Icterus (R), Scleral Icterus (L), Pharyngeal Erythema, Tonsillar Exudate, Tonsillar Erythema Neck: positive: Trachea midline, Normal Thyroid, Supple, Other (no neck tender ness, full ROM). negative: Tender, Rigid, Carotid bruit, Decreased range of motion, Stridor, Lymphadenopathy (R), Lymphadenopathy (L), Tender lateral, Tender midline Respiratory/Chest: positive: Lungs Clear, Normal Breath Sounds. negative: Chest Tender, Respiratory Distress, Accessory Muscle Use, Crackles, Rales, Rhonchi, Stridor, Wheezing Cardiovascular: positive: Regular Rhythm, Regular Rate. negative: Tachycardia, Irregularly Irregular Gastrointestinal/Abdominal: positive: Normal Bowel Sounds, Flat, Soft. negativ e: Tender, Organomegaly, Pulsatile Mass, Guarding, Rebound, Tenderness, Hernia Musculoskeletal: positive: Normal Inspection. negative: CVA Tenderness, Decreased Range of Motion, Vertebral Tenderness Extremity: positive: Normal Capillary Refill, Normal Inspection, Normal Range of Motion, Pelvis Stable. negative: Tender, Swelling, Calf Tenderness, Erythema Integumentary: positive: Normal Color, Dry, Warm. negative: Cyanotic, Jaundice, Cold Neurologic: positive: pigs feet cleaner II-XII NML intact, Fully Oriented, Alert, Normal Mood/Affect, Normal Response, Motor Strength 5/5, Finger to Nose (normal), Other (positive Romberg). negative: Facial Droop, Numbness, Sensory Deficit, Babinski ED Treatment Course - LABORATORY CBC & Chemistry Diagram: 04/11/20 00:50 04/11/20 03:31 Medical Decision Making - Medical Decision Making 04/11/20 03:57 Patient presents with 10th episode of syncope vs seizure, given history and sudden onset without seizure symptoms, more likely cardiac syncope and requires admission for further cardiac evaluation. Evaluating broadly for infection/thyroid/CVA as well, lower suspicion. Getting CBC/CMP/CP/ECG/CXR/Mag/Coags/UA/UC, as well as CT head and c-spine. Keppra level sent. No other injury noted to patient, currently has no symptoms or complaints. 04/11/20 04:02 CT head no acute pathology CT c-spine no acute pathology CXR no acute pathology 04/11/20 04:03 Labs notable for: - Na 145 - K 6.0 - Cl 113 - Cr 1.6 up from 1.1 - TSH 5.10 Orthostatic VS: - supine 95/58 HR 77 - sitting 99/60 HR 77 - standing 105/68 HR [address] Cárdenas given PMH seizures, agrees that this is more likely to be cardiac, does not recommend Keppra load but can give 500mg PO as night dose missed. Repeating BMP for further evaluation of hemoconcentration vs. real elevated K, no concerning ECG. ECG shows NSR with HR 68, QTc 433, TWI in V2-V6 but consistent with prior ECG. 04/11/20 04:32 Repeat K 4.5 after 1L NS, WNL. Discussed case with AGRICULTURE WORKER henna Hammer for admit to tele under Dr. Camarillo for syncope and VINCENT. Discharge - Discharge Information Problems reviewed: Yes Clinical Impression/Diagnosis: Syncope and collapse Condition: Stable - Admission Yes - Follow up/Referral - Patient Discharge Instructions - Post Discharge Activity
[2020-04-11 01:03] VITALS: BMI 23.0
--- NOTE | 2020-04-11 01:47 | PDOC ---
Attending Attestation - Resident Resident Name: Brandt Delgado - ED Attending Attestation I have performed the following: I have examined & evaluated the patient, The case was reviewed & discussed with the resident, I agree w/resident's findings & plan, Exceptions are as noted - HPI HPI: 04/11/20 05:02 See resident HPI - Physicial Exam PE: 04/11/20 05:02 Agree with documented exam - Medical Decision Making 04/11/20 05:02 Syncopal event w/o prodrome, unwitnessed. Hx of seizures in past but concern for cardiogenic syncope f/u labs, ekg, cxr, ct h, ct cs dispo per clinical course will likely need admission Discharge - Discharge Information Problems reviewed: Yes Clinical Impression/Diagnosis: Syncope and collapse Condition: Stable - Follow up/Referral - Patient Discharge Instructions - Post Discharge Activity
[2020-04-11 01:52] LABS: BASO % 1.1 % (0-2.0); EOS % 0.9 % (0-4.5); HEMATOCRIT 37.9 % (32.4-45.2); HEMOGLOBIN 12.3 GM/dL (10.7-15.3); INR 1.07 (0.83-1.09); LYMPH % 16.6 % (8-40); MCHC 32.5 g/dl (32.0-36.0); MEAN CELL VOLUME 86.3 fl (80-96); MEAN PLT VOLUME 9.2 fl (7.5-11.1); MONO % 5.7 % (3.8-10.2); NEUT % 75.7 % (42.8-82.8); PLATELET COUNT 180 K/MM3 (134-434); PROTHROMBIN TIME (PATIENT) 12.6 SEC (9.7-13.0); RBC 4.39 M/mm3 (3.60-5.2); RDW 16.9 % (11.6-15.6); WHITE BLOOD COUNT 7.5 K/mm3 (4.0-10.0)
[2020-04-11 01:54] LABS: ACTIVATED PTT 22.1 SECONDS (25.2-36.5)
[2020-04-11 02:09] LABS: ALBUMIN 3.2 g/dl (3.4-5.0); ALK PHOS 73 U/L (45-117); ANION GAP 5 MMOL/L (8-16); BILIRUBIN,TOTAL 0.4 mg/dL (0.2-1); CHLORIDE 113 mmol/L (98-107); CO2 27 mmol/L (21-32); CREATININE 1.6 mg/dL (0.55-1.3); GLUCOSE,RANDOM 137 mg/dL (74-106); MAGNESIUM 2.5 mg/dL (1.8-2.4); SGOT/AST 46 U/L (15-37); SGPT/ALT 20 U/L (13-61); SODIUM 145 mmol/L (136-145); TOT PROT 7.1 g/dl (6.4-8.2)
[2020-04-11] MEDS ORDERED: SODIUM CHLORIDE 1,000 ML IV SCH ×2 (02:45→21:45)
[2020-04-11] MEDS ORDERED: levETIRAcetam 500 MG TABLET (FP) PO ONE ×2 (03:49→04:29)
[2020-04-11 04:11] LABS: CALCIUM 9.2 mg/dL (8.5-10.1); CREATININE 1.5 mg/dL (0.55-1.3); POTASSIUM 4.5 mmol/L (3.5-5.1)
--- NOTE | 2020-04-11 04:43 | HP ---
Admitting History and Physical - Primary Care Physician PCP: Jaime Lopez - Admission Chief Complaint: Syncope History of Present Illness: 79 y/o female with a PMhx of IDDM (insulin pump), Seizure Disorder, Syncope. Who presents to to the ED via ambulance after an unwitnessed syncopal episode at home. Patient does not recall the event. Patient reports that her last seizure event was last July, when she was admitted for same. Patient denies recent changes to her medication regimen. Patient denies bowel or bladder incontinence. Patient denies headache, visual impairment, parasthesias. Patient denies fever, chills, cough, SOB, dizziness, CP, palpitations, AP, N/V. Patient denies sick contacts or recent travel. 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 Cardiovascular: Yes: HTN, Hyperlipdemia Gastrointestinal: Yes: GERD Endocrine: Yes: Diabetes Mellitus - Past Surgical History Past Surgical History: Yes: None - Smoking History Smoking history: Former smoker Have you smoked in the past 12 months: No Aproximately how many cigarettes per day: 0 - Alcohol/Substance Use Hx Alcohol Use: Yes (Former) History of Substance Use: reports: None - Social History Usual Living Arrangement: Yes: Other (Niece) ADL: Independent History of Recent Travel: No Home Medications - Allergies Allergies/Adverse Reactions: Allergies Allergy/AdvReac Type Severity Reaction Status Date / Time No Known Allergies Allergy Verified 12/14/17 21:30 - Home Medications Home Medications: Ambulatory Orders Aspirin 81 mg PO DAILY 10/17/17 Rosuvastatin Calcium [Crestor] 10 mg PO DAILY 10/17/17 levETIRAcetam [Keppra -] 500 mg PO BID #60 tablet 12/17/17 Insulin Pump Cartridge 08/03/18 Multivitamins [Multivit ([facility] Formulary)] 1 tab PO DAILY 07/13/19 Xalatan 0.005% Eye Drops - 1 drop OU HS 07/13/19 Family Medical History Family History: Unremarkable Review of Systems - Review of Systems Constitutional: reports: Diaphoresis Eyes: reports: No Symptoms HENT: reports: No Symptoms Neck: reports: No Symptoms Cardiovascular: reports: No Symptoms Respiratory: reports: No Symptoms Gastrointestinal: reports: No Symptoms Genitourinary: reports: No Symptoms Breasts: reports: No Symptoms Reported Musculoskeletal: reports: No Symptoms Integumentary: reports: No Symptoms Neurological: reports: Syncope Endocrine: reports: No Symptoms Hematology/Lymphatic: reports: No Symptoms Psychiatric: reports: No Symptoms Physical Examination Vital Signs: Vital Signs Temperature 98.2 F 04/11/20 01:07 Pulse Rate 72 04/11/20 01:07 Respiratory Rate 18 04/11/20 01:07 Blood Pressure 109/60 04/11/20 01:07 O2 Sat by Pulse Oximetry (%) 95 04/11/20 01:07 Constitutional: Yes: Well Nourished, No Distress, Calm Eyes: Yes: WNL, Conjunctiva Clear, EOM Intact, PERRL HENT: Yes: WNL, Atraumatic, Normocephalic Neck: Yes: WNL, Supple, Trachea Midline Cardiovascular: Yes: WNL, Regular Rate and Rhythm, S1, S2 Respiratory: Yes: WNL, Regular, CTA Bilaterally Gastrointestinal: Yes: WNL, Normal Bowel Sounds, Soft ...Rectal Exam: Yes: Deferred Renal/: Yes: WNL Breast(s): Yes: WNL Musculoskeletal: Yes: WNL Extremities: Yes: WNL Edema: No Peripheral Pulses WNL: Yes Integumentary: Yes: WNL Neurological: Yes: WNL, Alert, Oriented, Cran Nerves II-XII Intact ...Motor Strength: WNL Psychiatric: Yes: WNL, Alert, Oriented Labs: CBC, BMP 04/11/20 00:50 04/11/20 03:31 Laboratory Results - last 24 hr 04/11/20 04/11/20 04/11/20 00:50 00:50 00:50 WBC 7.5 RBC 4.39 Hgb 12.3 Hct 37.9 MCV 86.3 MCH 28.0 MCHC 32.5 RDW 16.9 H Plt Count 180 MPV 9.2 Absolute Neuts (auto) 5.7 Neutrophils % 75.7 Lymphocytes % 16.6 D Monocytes % 5.7 Eosinophils % 0.9 Basophils % 1.1 Nucleated RBC % 0 PT with INR 12.60 INR 1.07 PTT (Actin FS) 22.1 L Sodium 145 Potassium 6.0 H Chloride 113 H Carbon Dioxide 27 Anion Gap 5 L BUN 18.0 Creatinine 1.6 H Est GFR (CKD-EPI)AfAm 34.91 Est GFR (CKD-EPI)NonAf 30.12 Random Glucose 137 H Calcium 9.0 Phosphorus 4.0 Magnesium 2.5 H Total Bilirubin 0.4 AST 46 H ALT 20 Alkaline Phosphatase 73 Creatine Kinase 234 H Creatine Kinase Index 0.5 CK-MB (CK-2) 1.3 Troponin I < 0.02 Total Protein 7.1 Albumin 3.2 L TSH 5.10 H 04/11/20 03:31 WBC RBC Hgb Hct MCV MCH MCHC RDW Plt Count MPV Absolute Neuts (auto) Neutrophils % Lymphocytes % Monocytes % Eosinophils % Basophils % Nucleated RBC % PT with INR INR PTT (Actin FS) Sodium 147 H Potassium 4.5 Chloride 112 H Carbon Dioxide 29 Anion Gap 6 L BUN 19.0 H Creatinine 1.5 H Est GFR (CKD-EPI)AfAm 37.74 Est GFR (CKD-EPI)NonAf 32.56 Random Glucose 163 H Calcium 9.2 Phosphorus Magnesium Total Bilirubin AST ALT Alkaline Phosphatase Creatine Kinase Creatine Kinase Index CK-MB (CK-2) Troponin I Total Protein Albumin TSH Intake & Output 04/08/20 04/09/20 04/10/20 04/11/20 23:59 23:59 23:59 23:59 Weight 58.967 kg Current Medications Generic Name Dose Route Start Last Admin Trade Name Freq PRN Reason Stop Dose Admin Aspirin 81 mg 04/11/20 10:00 Asa - PO DAILY MACIEL Sodium Chloride 1,000 mls @ 42 mls/hr 04/11/20 02:45 04/11/20 02:50 Normal Saline - IV 42 mls/hr ASDIR MACIEL Administration Levetiracetam 500 mg 04/11/20 22:00 Keppra - PO BID MACIEL Multivitamins/Minerals/Vitamin C 1 tab 04/11/20 10:00 Tab-A-Vit - PO DAILY MACIEL Non-Formulary Medication 1 drop 04/11/20 22:00 Xalatan 0.005% Eye Drops - OU HS MACIEL Rosuvastatin Calcium 10 mg 04/11/20 22:00 Crestor - PO HS MACIEL Imaging - Results Chest X-ray: Image Reviewed Cat Scan: Report Reviewed, Image Reviewed EKG: Image Reviewed Problem List - Problems (1) Syncope and collapse Assessment/Plan: Likely due to arrhythmia vs seizure vs electrolyte imbalance Continue cardiac monitoring Serial Enzymes Appreciate Cardiology consult EKG reviewed Head CT- no acute iCH Carotid Doppler r/o stenosis Monitor CBC, CMP Neurochecks Seizure Precautions Code(s): R55 - SYNCOPE AND COLLAPSE (2) Seizure Assessment/Plan: ?seizure event today Head CT- neg ICH Keppra given in ED, will continue Neurology consulted by ED resident Monitor CBC, CMP Keppra level-pending Seizure Precautions Fall Precautions Code(s): R56.9 - UNSPECIFIED CONVULSIONS (3) HLD (hyperlipidemia) Assessment/Plan: stable Continue home med Monitor LFTs Code(s): E78.5 - HYPERLIPIDEMIA, UNSPECIFIED (4) Hypertension Assessment/Plan: stable Will continue home meds with parameters Monitor renal function Code(s): I10 - ESSENTIAL (PRIMARY) HYPERTENSION (5) Hypothyroidism Assessment/Plan: TSH 5.10 Will need to increase Levothyroxine when med is verified Code(s): E03.9 - HYPOTHYROIDISM, UNSPECIFIED Qualifiers: Hypothyroidism type: unspecified Qualified Code(s): E03.9 - Hypothyroidism, unspecified (6) IDDM (insulin dependent diabetes mellitus) Assessment/Plan: stable Patient may use own pump ISS HgbA1c in am Code(s): E11.9 - TYPE 2 DIABETES MELLITUS WITHOUT COMPLICATIONS; Z79.4 - NURSING HOME (CURRENT) USE OF INSULIN Assessment/Plan 79 y/o female with a PMhx of IDDM (insulin pump), Seizure Disorder, Syncope. Admitted to Telemetry for Syncope, Seizure Disorder, Electrolyte Imbalance for further evaluation of their emergent condition. Plan: See Problem List FEN PO fluids as tolerated Replete lytes prn Diabetic, Low Na Diet DVT ppx OOB SCDs Heparin SQ Dispo: Requires Inpatient Care Visit type - Emergency Visit Emergency Visit: Yes ED Registration Date: 04/11/20 Care time: The patient presented to the Emergency Department on the above date and was hospitalized for further evaluation of their emergent condition. - New Patient This patient is new to me today: Yes Date on this admission: 04/11/20 - Critical Care Critical Care patient: No
[2020-04-11] MEDS ORDERED: MULTIVITAMINS (DAILY MVI) TABLET (FP) ONE (08:39)
[2020-04-11] MEDS ORDERED: ASPIRIN 81 MG CHEWABLE TABLETS ONE (08:39)
[2020-04-11] MEDS: MULTIVITAMINS (DAILY MVI) TABLET (FP) PO SCH (09:07)
[2020-04-11] MEDS: ASPIRIN 81 MG CHEWABLE TABLETS PO SCH (09:07)
--- NOTE | 2020-04-11 09:40 | EKG ---
Test Reason : Blood Pressure : / mmHG Vent. Rate : 068 BPM Atrial Rate : 068 BPM P-R Int : 144 ms QRS Dur : 074 ms QT Int : 408 ms P-R-T Axes : 043 048 098 degrees QTc Int : 433 ms POOR DATA QUALITY, INTERPRETATION MAY BE ADVERSELY AFFECTED NORMAL SINUS RHYTHM T WAVE ABNORMALITY, CONSIDER ANTEROLATERAL ISCHEMIA ABNORMAL ECG WHEN COMPARED WITH ECG OF 14-JUL-2019 00:48, INVERTED T WAVES HAVE REPLACED NONSPECIFIC T WAVE ABNORMALITY IN LATERAL LEADS Confirmed by MARGARET HAGEN MD ([id number]) on 04/11/2020 9:40:03 AM Referred By: Confirmed By:MARGARET HAGEN MD
[2020-04-11 11:50] LABS: EPI CELLS 29 /uL (0-25.1); HYALINE CASTS 1 /uL (0-3.1); URINE APPEARANCE CLOUDY; URINE BACTERIA 3994 /uL (0-1359); URINE BILIRUBIN NEGATIVE (NEGATIVE); URINE COLOR YELLOW; URINE GLUCOSE (UA) NEGATIVE (NEGATIVE); URINE KETONE NEGATIVE (NEGATIVE); URINE LEUK ESTERASE TRACE (NEGATIVE); URINE NITRITE NEGATIVE (NEGATIVE); URINE PROTEIN NEGATIVE (NEGATIVE); URINE UROBILINOGEN 0.2 mg/dL (0.2-1.0); URINE WBC 92 /uL (0-25.8)
--- NOTE | 2020-04-11 11:58 | CON.NEURO ---
Consult - Past Medical History [place]SH[place]: Yes: Seizure, Syncope Cardio/Vascular: Yes: HTN, Hyperlipdemia Gastrointestinal: Yes: GERD Endocrine: Yes: Diabetes Mellitus - Past Surgical History Past Surgical History: Yes: None - Alcohol/Substance Use Hx Alcohol Use: Yes (Former) History of Substance Use: reports: None - Smoking History Smoking history: Former smoker Have you smoked in the past 12 months: No Aproximately how many cigarettes per day: 0 - Social History ADL: Independent History of Recent Travel: No Home Medications - Allergies Allergies/Adverse Reactions: Allergies Allergy/AdvReac Type Severity Reaction Status Date / Time No Known Allergies Allergy Verified 12/14/17 21:30 - Home Medications Home Medications: Ambulatory Orders Aspirin 81 mg PO DAILY 10/17/17 Rosuvastatin Calcium [Crestor] 10 mg PO DAILY 10/17/17 levETIRAcetam [Keppra -] 500 mg PO BID #60 tablet 12/17/17 Insulin Pump Cartridge 08/03/18 Multivitamins [Multivit ([facility] Formulary)] 1 tab PO DAILY 07/13/19 Xalatan 0.005% Eye Drops - 1 drop OU HS 07/13/19 Physical Exam-Neuro Vital Signs: Vital Signs Temperature 98.1 F 04/11/20 07:15 Pulse Rate 62 04/11/20 07:15 Respiratory Rate 24 H 04/11/20 07:15 Blood Pressure 141/68 04/11/20 07:15 O2 Sat by Pulse Oximetry (%) 95 04/11/20 07:15 Labs: CBC, BMP 04/11/20 00:50 04/11/20 03:31 INR, PTT INR 1.07 (0.83-1.09) 04/11/20 00:50 Assessment/Plan CC Transient loc on april HPI 79 year old female history of IDDM, Epilepsy, syncope She has beenpassed out and she is on keppra 500 mg po bid for possible seiuzre. She takes her medicaiton. There was no ocnfusion, tongue bite or incontinence. Patient is not sure how long she passed out. her ct head is normal. there is no focal neurological sypmptoms PMH [place] MARSH[place]: Yes: Seizure, Syncope Cardiovascular: Yes: HTN, Hyperlipdemia Gastrointestinal: Yes: GERD Endocrine: Yes: Diabetes Mellitus - Past Surgical History Past Surgical History: Yes: None - Smoking History Smoking history: Former smoker Have you smoked in the past 12 months: No Aproximately how many cigarettes per day: 0 - Alcohol/Substance Use Hx Alcohol Use: Yes (Former) History of Substance Use: reports: None - Social History Usual Living Arrangement: Yes: Other (Niece) ADL: Independent History of Recent Travel: No Home Medications - Allergies Allergies/Adverse Reactions: Allergies Allergy/AdvReac Type Severity Reaction Status Date / Time No Known Allergies Allergy Verified 12/14/17 21:30 - Home Medications Home Medications: Ambulatory Orders Aspirin 81 mg PO DAILY 10/17/17 Rosuvastatin Calcium [Crestor] 10 mg PO DAILY 10/17/17 levETIRAcetam [Keppra -] 500 mg PO BID #60 tablet 12/17/17 Insulin Pump Cartridge 08/03/18 Multivitamins [Multivit ([facility] Formulary)] 1 tab PO DAILY 07/13/19 Xalatan 0.005% Eye Drops - 1 drop OU HS 07/13/19 ROS,FH,SH reviewed in chart NEUROLOGICAL EXAMINATION Alert oriented x 3, eating breakfast , speech is normal, vss eomi, pupils reactive no face asymmetry, moving all ext sensation is normal ct head unremarkable Assessment/Plan Most likley syncopal episode, given she is not driving and not active physically, i discussed with patient and agree to continue keppra for same dose. Plan: cardiac work up for syncope - eeg - seizure and fall precautiosn - no need to increase keppra Thanking you so much Tonio Cárdenas MD
--- NOTE | 2020-04-11 12:10 | CON.CARD ---
Consult Consult Specialty:: Cardiology Referred by:: Dr. Cunningham Reason for Consultation:: Syncope vs seizure - History of Present Illness Chief Complaint: LOC History of Present Illness: 79 h/o HTN, HLD, IDDM,and GERD, and recurrent syncope s/p loop recorder placement p/w recurrent syncope. Was standing at home getting ready to prepare her diabetic supplies for testing and passed out. Feels well now. No cp, sob, palps, pnd, orthopnea, le edema, dizzy. No fever/chills or cough. No known COVID exposures; She denies prior episodes of hypoglycemia. cards: Dr Baptiste Past Medical History/Past surgical hx: per hpi; seizures Social hx: - Alcohol/Substance Use Hx Alcohol Use: No History of Substance Use: reports: None - Smoking History Smoking history: Former smoker Lived alone, but now with niece fam hx: no premature cad. 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, Syncope Cardio/Vascular: Yes: HTN, Hyperlipdemia Gastrointestinal: Yes: GERD Hepatobiliary: No: Cirrhosis, Cholelithiasis, Cholecystitis, Choledocholithiasis, Hepatitis A, Hepatitis B, Hepatitis C, Other Renal/: No: Renal Failure, Renal Inusuff, BPH, Cancer, Hematuria, Hemodialysis, Neurogenic Bladder, Renal Calculi, UTI, Other Reproductive: No: Ectopic , Endometriosis, Fibroids, PID, Polycystic Ovary Syndrome, Postmenopausal, Other Heme/Onc: No: Anemia, B12 Deficiency, Bleeding Disorder, Cancer, Current Chemotherapy, Current Radiation Therapy, Hemochromatosis, Hypercoaguable State, Myeloproliferative Synd, Sickle Cell Disease, Sickle Cell Trait, Thrombocytopenia, Other Infectious Disease: No: AIDS, C-Diff, Herpes Zoster, HIV, MRSA, STD's, Tuberculosis, VREF, Other Psych: No: Addictions, Anxiety, Bipolar, Depression, Panic, Psychosis, Schizophrenia, Other ENT: No: Allergic Rhinitis, Sinusitis, Other Endocrine: Yes: Diabetes Mellitus - Past Surgical History Past Surgical History: Yes: None - Alcohol/Substance Use Hx Alcohol Use: Yes (Former) History of Substance Use: reports: None - Smoking History Smoking history: Former smoker Have you smoked in the past 12 months: No Aproximately how many cigarettes per day: 0 - Social History ADL: Independent History of Recent Travel: No Home Medications - Allergies Allergies/Adverse Reactions: Allergies Allergy/AdvReac Type Severity Reaction Status Date / Time No Known Allergies Allergy Verified 12/14/17 21:30 - Home Medications Home Medications: Ambulatory Orders Aspirin 81 mg PO DAILY 10/17/17 Rosuvastatin Calcium [Crestor] 10 mg PO DAILY 10/17/17 levETIRAcetam [Keppra -] 500 mg PO BID #60 tablet 12/17/17 Insulin Pump Cartridge 08/03/18 Multivitamins [Multivit ([facility] Formulary)] 1 tab PO DAILY 07/13/19 Xalatan 0.005% Eye Drops - 1 drop OU HS 07/13/19 Family Medical History Family History: Unremarkable (not pertinent to this presentation) Review of Systems - Review of Systems Constitutional: reports: No Symptoms Eyes: reports: No Symptoms HENT: reports: No Symptoms Neck: reports: No Symptoms Cardiovascular: reports: No Symptoms Respiratory: reports: No Symptoms Gastrointestinal: reports: No Symptoms Genitourinary: reports: No Symptoms Breasts: reports: No Symptoms Reported Musculoskeletal: reports: No Symptoms Integumentary: reports: No Symptoms Neurological: reports: Change in LOC, Seizure, Syncope Endocrine: reports: No Symptoms Hematology/Lymphatic: reports: No Symptoms Psychiatric: reports: No Symptoms - Risk Factors Known Risk Factors: Yes: Age, Hypercholesterolemia, Smoking Vital Signs: Vital Signs Temperature 98.1 F 04/11/20 07:15 Pulse Rate 62 04/11/20 07:15 Respiratory Rate 24 H 04/11/20 07:15 Blood Pressure 141/68 04/11/20 07:15 O2 Sat by Pulse Oximetry (%) 95 04/11/20 07:15 Constitutional: Yes: No Distress, Calm Eyes: Yes: Conjunctiva Clear, EOM Intact HENT: Yes: Atraumatic, Normocephalic Neck: Yes: Supple, Trachea Midline Respiratory: Yes: CTA Bilaterally (rales left base clear with cough and deep breathing; no active wheezing) Gastrointestinal: Yes: Soft (nt) Cardiovascular: Yes: WNL JVD: No Carotid Bruit: No PMI: Non-Displaced Heart Sounds: Yes: S1, S2 (rrr, no m.r.g) Edema: No Peripheral Pulses WNL: Yes Neurological: Yes: Alert, Oriented ...Motor Strength: WNL (grossly nonfocal) - Other Data Labs, Other Data: CBC, BMP 04/11/20 00:50 04/11/20 03:31 INR, PTT INR 1.07 (0.83-1.09) 04/11/20 00:50 Troponin, BNP 04/11/20 00:50 Troponin I < 0.02 Troponin, BNP 04/11/20 00:50 Troponin I < 0.02 Laboratory Tests 04/11/20 04/11/20 04/11/20 00:50 00:50 00:50 WBC 7.5 Hgb 12.3 Plt Count 180 INR 1.07 PTT (Actin FS) 22.1 L Sodium Potassium BUN Creatinine Creatine Kinase 234 H Troponin I < 0.02 TSH 5.10 H Urine Color Urine Appearance Urine pH Ur Specific [place] Urine Protein Urine Glucose (UA) Urine Ketones Urine Blood Urine Nitrite Urine Bilirubin Urine Urobilinogen Ur Leukocyte Esterase Urine WBC (Auto) Urine Casts (Auto) U Epithel Cells (Auto) Urine Bacteria (Auto) Levetiracetam COVID-19 ([facility]) 04/11/20 04/11/20 04/11/20 02:20 03:31 03:31 WBC Hgb Plt Count INR PTT (Actin FS) Sodium 147 H Potassium 4.5 BUN 19.0 H Creatinine 1.5 H Creatine Kinase Troponin I TSH Urine Color Urine Appearance Urine pH Ur Specific [place] Urine Protein Urine Glucose (UA) Urine Ketones Urine Blood Urine Nitrite Urine Bilirubin Urine Urobilinogen Ur Leukocyte Esterase Urine WBC (Auto) Urine Casts (Auto) U Epithel Cells (Auto) Urine Bacteria (Auto) Levetiracetam Pending COVID-19 ([facility]) Pending 04/11/20 10:55 WBC Hgb Plt Count INR PTT (Actin FS) Sodium Potassium BUN Creatinine Creatine Kinase Troponin I TSH Urine Color Yellow Urine Appearance Cloudy Urine pH 6.0 D Ur Specific [place] 1.013 Urine Protein Negative Urine Glucose (UA) Negative Urine Ketones Negative Urine Blood Negative Urine Nitrite Negative Urine Bilirubin Negative Urine Urobilinogen 0.2 Ur Leukocyte Esterase Trace Urine WBC (Auto) 92 Urine Casts (Auto) 1 U Epithel Cells (Auto) 29 Urine Bacteria (Auto) 3994 Levetiracetam COVID-19 ([facility]) NSR with TWI V2-V5 which are chronic and unchanged from 2019 Echo: Report Reviewed Stress Echo: Report Reviewed Ejection Fraction %: LVEF > or = 40 % Imaging - Results Chest X-ray: Report Reviewed (no acute path), Image Reviewed Cat Scan: Report Reviewed (no acute path) EKG: Image Reviewed Assessment/Plan Cardiac Data ekg: nsr. nl intervals, anterior/anterolateral twi. similar to priors. cxr: clear lungs echo 10/2017: nl lv/rv, no sig valve path Echo 12/2016: nl lv/rv size/fn. impaired relaxation. 1+ mac Lexiscan stress MPI 01/2017: nl mpi, nl lvef carotid u/s 12/2016: mod bilateral plaque, no stenosis. carotid u/s 08/2018: mild-mod bilateral plaque, no stenosis. A/P: 79 yo with h/o HTN, HLD, IDDM,and GERD, and recurrent syncope s/p loop recorder placement p/w recurrent syncope vs seizure. Recurrent syncope vs seizure: Likely recurrent seizure - h/o recurrent syncope. Had neuro eval on prior admits for syncope --> thought to be vasovagal/neurocardiogenic. She was then sent for loop recorder (impl anted 01/2017 at [place], [facility]). - loop recorder interrogated when had syncope 10/2017--> no arrhyt hmia/bradycardia despite prolonged episode of LOC. - similar episode 12/2017-->loop recorder was again interrogated--> No events occurred during pt's syncope. - Given multiple syncope episodes with normal loop recorder findings it is apparent that there is no arrhythmia/bradycardia related etiology of her syncope. She was recently being treated for seizures. - Orthostatic vitals on prior admissions for similar have been negative - no signs acs. Prior echo and stress unremarkable. 08/2018 carotid u/s unremarkable. - Neuro following: f/u EEG -Telemetry x 24 hours HTN -stable on diovan -Check orthostatics again HL: - statin
[2020-04-11 12:33] LABS: URINE RBC 3 /uL (0-23.9)
--- NOTE | 2020-04-11 14:54 | PN ---
Progress Note, Physician Chief Complaint: Syncope History of Present Illness: NAD denies any N/V/dizziness at the moment Seen by neurology+ cardiology Awaiting EEG U/S carotid-mild to moderate plaques without any evidence of hemodynamic instability CT head unremarkable CT cervical spine shows DJD Has had unexplained syncopal episodes in the past EKG: nsr. nl intervals, anterior/anterolateral twi. similar to priors. CXR: clear lungs ECHO: 10/2017: nl lv/rv, no sig valve path Lexiscan stress MPI 01/2017: nl mpi, nl lvef - Current Medication List Current Medications: Active Medications Aspirin (Asa -) 81 mg PO DAILY [facility] Last Admin: 04/11/20 09:07 Dose: 81 mg Documented by: Sodium Chloride (Normal Saline -) 1,000 mls @ 42 mls/hr IV ASDIR [facility] Last Admin: 04/11/20 02:50 Dose: 42 mls/hr Documented by: Latanoprost (Xalatan 0.005% Eye Drops -) 1 drop OU HS [facility] Levetiracetam (Keppra -) 500 mg PO BID [facility] Multivitamins/Minerals/Vitamin C (Tab-A-Vit -) 1 tab PO DAILY [facility] Last Admin: 04/11/20 09:07 Dose: 1 tab Documented by: Rosuvastatin Calcium (Crestor -) 10 mg PO [facility] - Objective Vital Signs: Vital Signs Temperature 98.1 F 04/11/20 07:15 Pulse Rate 62 04/11/20 07:15 Respiratory Rate 24 H 04/11/20 07:15 Blood Pressure 141/68 04/11/20 07:15 O2 Sat by Pulse Oximetry (%) 95 04/11/20 07:15 Constitutional: Yes: Well Nourished, No Distress, Calm Cardiovascular: Yes: Regular Rate and Rhythm Respiratory: Yes: Regular, CTA Bilaterally Gastrointestinal: Yes: Normal Bowel Sounds, Soft Genitourinary: Yes: WNL Musculoskeletal: Yes: WNL Extremities: Yes: WNL Edema: No Peripheral Pulses WNL: Yes Neurological: Yes: Alert, Oriented Psychiatric: Yes: Alert, Oriented Labs: CBC, BMP 04/11/20 00:50 04/11/20 03:31 INR, PTT INR 1.07 (0.83-1.09) 04/11/20 00:50 Problem List - Problems (1) Diabetes Assessment/Plan: -A1c at 7.0 -BGM AC HS -ISS -Diabetic low sodium diet Problems reviewed: Yes Code(s): E11.9 - TYPE 2 DIABETES MELLITUS WITHOUT COMPLICATIONS (2) Syncope and collapse Assessment/Plan: -Cardiology consult appreciated -Neurology consult appreciated -Awaiting EEG -U/S carotid-mild to moderate plaques without any evidence of hemodynamic instability -CT head unremarkable -CT cervical spine shows DJD -Has had unexplained syncopal episodes in the past -EKG: nsr. nl intervals, anterior/anterolateral twi. similar to priors. -CXR: clear lungs -ECHO: 10/2017: nl lv/rv, no sig valve path -Lexiscan stress MPI 01/2017: nl mpi, nl lvef -Also check B12 Problems reviewed: Yes Code(s): R55 - SYNCOPE AND COLLAPSE (3) Hypertension Assessment/Plan: -Hold Valsartan for now Cr at 1.6, with baseline cr at 1.1 -Low sodium diet -Can use amlodipine 5 mg po daily for now Problems reviewed: Yes Code(s): I10 - ESSENTIAL (PRIMARY) HYPERTENSION (4) Seizure Assessment/Plan: -EEG -Neurology consult appreciated Problems reviewed: Yes Code(s): R56.9 - UNSPECIFIED CONVULSIONS (5) VINCENT (acute kidney injury) Assessment/Plan: -Baseline Cr at 1.1 -Nephrology consult -Gentle IVF x 24 hours -Hold ARB -Amlodipine 5 mg po daily Problems reviewed: Yes Code(s): N17.9 - ACUTE KIDNEY FAILURE, UNSPECIFIED Assessment/Plan See problem list GI ppx DVT ppx Left msg for Linnea (niece) for pt update
[2020-04-11] MEDS: INSULIN SLIDING SCALE (NOVOLOG) 1 VIAL SQ SCH (17:29)
[2020-04-11] MEDS: LATANOPROST 0.005% OPHTH SOLN 2.5ML BOTTLE OU SCH (21:23)
[2020-04-11] MEDS: ROSUVASTATIN CA 10 MG TABLET (FP) PO SCH (21:29)
[2020-04-11] MEDS: levETIRAcetam 500 MG TABLET (FP) PO SCH (21:29)
[2020-04-12] MEDS: HEPARIN NA (PORCINE) 5,000 UNITS/ML 1ML VIAL SQ SCH ×4 (00:21→21:39)
[2020-04-12] MEDS: INSULIN SLIDING SCALE (NOVOLOG) 1 VIAL SQ SCH ×3 (06:27→17:42)
[2020-04-12 06:45] LABS: BASO % 0.4 % (0-2.0); EOS % 3.5 % (0-4.5); HEMATOCRIT 36.2 % (32.4-45.2); HEMOGLOBIN 11.7 GM/dL (10.7-15.3); LYMPH % 28.1 % (8-40); MCH 27.4 pg (25.7-33.7); MCHC 32.4 g/dl (32.0-36.0); MEAN CELL VOLUME 84.6 fl (80-96); MEAN PLT VOLUME 8.6 fl (7.5-11.1); MONO % 7.3 % (3.8-10.2); NEUT % 60.7 % (42.8-82.8); PLATELET COUNT 152 K/MM3 (134-434); RBC 4.27 M/mm3 (3.60-5.2); RDW 16.9 % (11.6-15.6); WHITE BLOOD COUNT 7.3 K/mm3 (4.0-10.0)
[2020-04-12 07:04] LABS: ALBUMIN 2.9 g/dl (3.4-5.0); BILIRUBIN,TOTAL 0.4 mg/dL (0.2-1); BLOOD UREA NITROGEN 18.3 mg/dL (7-18); CALCIUM 8.4 mg/dL (8.5-10.1); CREATININE 1.1 mg/dL (0.55-1.3); POTASSIUM 3.9 mmol/L (3.5-5.1); TOT PROT 6.1 g/dl (6.4-8.2)
[2020-04-12] MEDS: levETIRAcetam 500 MG TABLET (FP) PO SCH ×2 (09:48→21:40)
[2020-04-12] MEDS: amLODIPine BESYLATE 5 MG TABLET (FP) PO SCH (09:48)
[2020-04-12] MEDS: PANTOPRAZOLE 40 MG TABLET PO SCH (09:48)
[2020-04-12] MEDS: MULTIVITAMINS (DAILY MVI) TABLET (FP) PO SCH (09:48)
[2020-04-12] MEDS: ASPIRIN 81 MG CHEWABLE TABLETS PO SCH (09:48)
--- NOTE | 2020-04-12 11:20 | PN ---
Progress Note (short form) - Note Progress Note: s: no cp sob palps dizzy Current Medications Generic Name Dose Route Start Last Admin Trade Name Jeremias PRN Reason Stop Dose Admin Amlodipine Besylate 5 mg 04/12/20 10:00 04/12/20 09:48 Norvasc - PO 5 mg DAILY MACIEL Administration Aspirin 81 mg 04/11/20 10:00 04/12/20 09:48 Asa - PO 81 mg DAILY MACIEL Administration Heparin Sodium (Porcine) 5,000 unit 04/11/20 22:00 04/12/20 09:48 Heparin - SQ 5,000 unit BID MACIEL Administration Sodium Chloride 1,000 mls @ 50 mls/hr 04/11/20 21:45 04/12/20 00:19 Normal Saline - IV 04/12/20 21:39 50 mls/hr ASDIR MACIEL Administration Insulin Aspart 1 vial 04/11/20 16:30 04/12/20 06:27 Novolog Vial Sliding Scale - SQ Not Given TIDAC [facility] Protocol Latanoprost 1 drop 04/11/20 22:00 04/11/20 21:23 Xalatan 0.005% Eye Drops - OU 1 drop HS MACIEL Administration Levetiracetam 500 mg 04/11/20 22:00 04/12/20 09:48 Keppra - PO 500 mg BID MACIEL Administration Multivitamins/Minerals/Vitamin C 1 tab 04/11/20 10:00 04/12/20 09:48 Tab-A-Vit - PO 1 tab DAILY MACIEL Administration Pantoprazole Sodium 40 mg 04/12/20 10:00 04/12/20 09:48 Protonix - PO 40 mg DAILY MACIEL Administration Rosuvastatin Calcium 10 mg 04/11/20 22:00 04/11/20 21:29 Crestor - PO 10 mg HS MACIEL Administration Vital Signs Period Temp Pulse Resp BP Sys/Molina Pulse Ox Last 24 Hr 98.0 F-99.3 F 18-89 17-20 155-194/72-92 95-98 Constitutional: Yes: No Distress, Calm Eyes: Yes: Conjunctiva Clear, EOM Intact HENT: Yes: Atraumatic, Normocephalic Neck: Yes: Supple, Trachea Midline Respiratory: Yes: CTA Bilaterally Gastrointestinal: Yes: Soft (nt) Cardiovascular: Yes: WNL JVD: No Carotid Bruit: No PMI: Non-Displaced Heart Sounds: Yes: S1, S2 (rrr, no m.r.g) Edema: No Peripheral Pulses WNL: Yes Neurological: Yes: Alert, Oriented CBC, BMP 04/12/20 06:08 04/12/20 06:08 NSR with TWI V2-V5 which are chronic and unchanged from 2019 Echo: Report Reviewed Stress Echo: Report Reviewed Ejection Fraction %: LVEF > or = 40 % Imaging - Results Chest X-ray: Report Reviewed (no acute path), Image Reviewed Cat Scan: Report Reviewed (no acute path) EKG: Image Reviewed Assessment/Plan Cardiac Data ekg: nsr. nl intervals, anterior/anterolateral twi. similar to priors. cxr: clear lungs echo 10/2017: nl lv/rv, no sig valve path Echo 12/2016: nl lv/rv size/fn. impaired relaxation. 1+ mac Lexiscan stress MPI 01/2017: nl mpi, nl lvef carotid u/s 12/2016: mod bilateral plaque, no stenosis. carotid u/s 08/2018: mild-mod bilateral plaque, no stenosis. tele: sr A/P: 79 yo with h/o HTN, HLD, IDDM,and GERD, and recurrent syncope s/p loop recorder placement p/w recurrent syncope vs seizure. Recurrent syncope vs seizure: Likely recurrent seizure - h/o recurrent syncope. Had neuro eval on prior admits for syncope --> thought to be vasovagal/neurocardiogenic. She was then sent for loop recorder (implanted 01/2017 at [facility], [employer]). - loop recorder interrogated when had syncope 10/2017--> no arrhythmia/bradycardia despite prolonged episode of LOC. - similar episode 12/2017-->loop recorder was again interrogated--> No events occurred during pt's syncope. - Given multiple syncope episodes with normal loop recorder findings it is a pparent that there is no arrhythmia/bradycardia related etiology of her syncope. She was recently being treated for seizures. - Orthostatic vitals on prior admissions for similar have been negative - no signs acs. Prior echo and stress unremarkable. 08/2018 carotid u/s u nremarkable. - Neuro following: f/u EEG -cardiac layne stable for dc HTN -stable on diovan HL: - statin
--- NOTE | 2020-04-12 14:34 | PN ---
Progress Note, Physician Chief Complaint: ASLEEP COMFORTABLE NO ALARMS OVERNIGHT EVENTS AND NOTES REVIEWED - Current Medication List Current Medications: Active Medications Amlodipine Besylate (Norvasc -) 5 mg PO DAILY [facility] Last Admin: 04/12/20 09:48 Dose: 5 mg Documented by: Aspirin (Asa -) 81 mg PO DAILY [facility] Last Admin: 04/12/20 09:48 Dose: 81 mg Documented by: Heparin Sodium (Porcine) (Heparin -) 5,000 unit SQ BID [facility] Last Admin: 04/12/20 09:48 Dose: 5,000 unit Documented by: Sodium Chloride (Normal Saline -) 1,000 mls @ 50 mls/hr IV ASDIR [facility] Stop: 04/12/20 21:39 Last Admin: 04/12/20 00:19 Dose: 50 mls/hr Documented by: Insulin Aspart (Novolog Vial Sliding Scale -) 1 vial SQ TIDAC [facility]; Protocol Last Admin: 04/12/20 11:57 Dose: Not Given Documented by: Latanoprost (Xalatan 0.005% Eye Drops -) 1 drop OU [facility] Last Admin: 04/11/20 21:23 Dose: 1 drop Documented by: Levetiracetam (Keppra -) 500 mg PO BID [facility] Last Admin: 04/12/20 09:48 Dose: 500 mg Documented by: Multivitamins/Minerals/Vitamin C (Tab-A-Vit -) 1 tab PO DAILY [facility] Last Admin: 04/12/20 09:48 Dose: 1 tab Documented by: Pantoprazole Sodium (Protonix -) 40 mg PO DAILY [facility] Last Admin: 04/12/20 09:48 Dose: 40 mg Documented by: Rosuvastatin Calcium (Crestor -) 10 mg PO [facility] Last Admin: 04/11/20 21:29 Dose: 10 mg Documented by: - Objective Vital Signs: Vital Signs Temperature 98.7 F 04/12/20 14:00 Pulse Rate 84 04/12/20 14:00 Respiratory Rate 04/12/20 14:00 Blood Pressure 149/80 04/12/20 14:00 O2 Sat by Pulse Oximetry (%) 95 04/12/20 09:00 Constitutional: Yes: No Distress Cardiovascular: Yes: Regular Rate and Rhythm Respiratory: Yes: CTA Bilaterally Gastrointestinal: Yes: Soft Genitourinary: Yes: Incontinence Musculoskeletal: Yes: Muscle Weakness Neurological: Yes: Pre-Existing Deficit, Seizure Labs: CBC, BMP 04/12/20 06:08 04/12/20 06:08 INR, PTT INR 1.07 (0.83-1.09) 04/11/20 00:50 Problem List - Problems (1) VINCENT (acute kidney injury) Code(s): N17.9 - ACUTE KIDNEY FAILURE, UNSPECIFIED (2) Syncope and collapse Code(s): R55 - SYNCOPE AND COLLAPSE (3) Anemia Code(s): D64.9 - ANEMIA, UNSPECIFIED (4) Azotemia Code(s): R79.89 - OTHER SPECIFIED ABNORMAL FINDINGS OF BLOOD CHEMISTRY (5) Bradycardia Code(s): R00.1 - BRADYCARDIA, UNSPECIFIED (6) HLD (hyperlipidemia) Code(s): E78.5 - HYPERLIPIDEMIA, UNSPECIFIED (7) Hypertension Code(s): I10 - ESSENTIAL (PRIMARY) HYPERTENSION (8) IDDM (insulin dependent diabetes mellitus) Code(s): E11.9 - TYPE 2 DIABETES MELLITUS WITHOUT COMPLICATIONS; Z79.4 - COUNTER FORMER (CURRENT) USE OF INSULIN (9) Seizure Code(s): R56.9 - UNSPECIFIED CONVULSIONS Assessment/Plan NEUROLOGY WORKUP IN PROGRESS CT SCAN REVIEWED AWAITING EEG TEST DVT PROPHYLAXIS PT EVAL LABS REVIEWED SSI/BGM CHECKS ANEMIA STABLE NEURO AND SEIZURE CHECKS
--- NOTE | 2020-04-12 15:17 | PN ---
Progress Note, Physician Chief Complaint: Syncope History of Present Illness: This is a 79 year old woman with history of DM on insulin, seizure disorder, hypertension who presented to the ED with syncope and found to have VINCENT and now hypernatremia. - Current Medication List Current Medications: Active Medications Amlodipine Besylate (Norvasc -) 5 mg PO DAILY [facility] Last Admin: 04/12/20 09:48 Dose: 5 mg Documented by: Aspirin (Asa -) 81 mg PO DAILY [facility] Last Admin: 04/12/20 09:48 Dose: 81 mg Documented by: Heparin Sodium (Porcine) (Heparin -) 5,000 unit SQ BID [facility] Last Admin: 04/12/20 09:48 Dose: 5,000 unit Documented by: Sodium Chloride (Normal Saline -) 1,000 mls @ 50 mls/hr IV ASDIR [facility] Stop: 04/12/20 21:39 Last Admin: 04/12/20 00:19 Dose: 50 mls/hr Documented by: Insulin Aspart (Novolog Vial Sliding Scale -) 1 vial SQ TIDAC [facility]; Protocol Last Admin: 04/12/20 11:57 Dose: Not Given Documented by: Latanoprost (Xalatan 0.005% Eye Drops -) 1 drop OU HS [facility] Last Admin: 04/11/20 21:23 Dose: 1 drop Documented by: Levetiracetam (Keppra -) 500 mg PO BID [facility] Last Admin: 04/12/20 09:48 Dose: 500 mg Documented by: Multivitamins/Minerals/Vitamin C (Tab-A-Vit -) 1 tab PO DAILY [facility] Last Admin: 04/12/20 09:48 Dose: 1 tab Documented by: Pantoprazole Sodium (Protonix -) 40 mg PO DAILY [facility] Last Admin: 04/12/20 09:48 Dose: 40 mg Documented by: Rosuvastatin Calcium (Crestor -) 10 mg PO HS [facility] Last Admin: 04/11/20 21:29 Dose: 10 mg Documented by: - Objective Vital Signs: Vital Signs Temperature 98.7 F 04/12/20 14:00 Pulse Rate 84 04/12/20 14:00 Respiratory Rate 20 04/12/20 14:00 Blood Pressure 149/80 04/12/20 14:00 O2 Sat by Pulse Oximetry (%) 95 04/12/20 09:00 Labs: CBC, BMP 04/12/20 06:08 04/12/20 06:08 INR, PTT INR 1.07 (0.83-1.09) 04/11/20 00:50
--- NOTE | 2020-04-12 15:24 | CON.NEP ---
Consult Consult Specialty:: Nephrology Referred by:: Rai Shirley NP Reason for Consultation:: VINCENT and Hyperkalemia - History of Present Illness Chief Complaint: Syncope History of Present Illness: This is a 79 year old woman with history of DM on insulin, seizure disorder, hypertension who presented to the ED with syncope and found to have VINCENT and now hypernatremia. Seen and examined at the bedside. Offers no acute complaints. Denies any sob, cp, fever, chills, N/V/D. Making urine. Has never seen a kidney doctor before. No flank pain, dysuria or frequency. Denies any NSAID use. No recent contrast exposure. - History Source History Provided By: Patient Limitations to Obtaining History: No Limitations - Past Medical History [employer]: Yes: Seizure, Syncope Cardio/Vascular: Yes: HTN, Hyperlipdemia Gastrointestinal: Yes: GERD Hepatobiliary: No: Cirrhosis, Cholelithiasis, Cholecystitis, Choledocholithiasis, Hepatitis A, Hepatitis B, Hepatitis C, Other Renal/: No: Renal Failure, Renal Inusuff, BPH, Cancer, Hematuria, Hemodialysis, Neurogenic Bladder, Renal Calculi, UTI, Other Infectious Disease: No: AIDS, C-Diff, Herpes Zoster, HIV, MRSA, STD's, Tuberculosis, VREF, Other Psych: No: Addictions, Anxiety, Bipolar, Depression, Panic, Psychosis, Schizoph leslie, Other ENT: No: Allergic Rhinitis, Sinusitis, Other Endocrine: Yes: Diabetes Mellitus - Past Surgical History Past Surgical History: Yes: None - Alcohol/Substance Use Hx Alcohol Use: Yes (Former) History of Substance Use: reports: None - Smoking History Smoking history: Former smoker Have you smoked in the past 12 months: No Aproximately how many cigarettes per day: 0 - Social History ADL: Independent History of Recent Travel: No Home Medications - Allergies Allergies/Adverse Reactions: Allergies Allergy/AdvReac Type Severity Reaction Status Date / Time No Known Allergies Allergy Verified 12/14/17 21:30 - Home Medications Home Medications: Ambulatory Orders Aspirin 81 mg PO DAILY 10/17/17 Rosuvastatin Calcium [Crestor] 10 mg PO DAILY 10/17/17 levETIRAcetam [Keppra -] 500 mg PO BID #60 tablet 12/17/17 Insulin Pump Cartridge 08/03/18 Multivitamins [Multivit ([facility] Formulary)] 1 tab PO DAILY 07/13/19 Xalatan 0.005% Eye Drops - 1 drop OU HS 07/13/19 Valsartan 80 mg PO DAILY 04/11/20 Family Medical History Family History: Unremarkable Review of Systems - Review of Systems Constitutional: reports: No Symptoms Eyes: reports: No Symptoms HENT: reports: No Symptoms Neck: reports: No Symptoms Cardiovascular: reports: No Symptoms Respiratory: reports: No Symptoms Gastrointestinal: reports: No Symptoms Genitourinary: reports: No Symptoms Musculoskeletal: reports: No Symptoms Integumentary: reports: No Symptoms Neurological: reports: No Symptoms Nephrology Consult - Height Height: 5 ft 3 in - Weight Weight: 58.967 kg - BMI Body Mass Index (BMI): 23.0 - Lab Results CBC,BMP: CBC, BMP 04/12/20 06:08 04/12/20 06:08 Anion Gap: Anion Gap Anion Gap 8 MMOL/L (8-16) 04/12/20 06:08 - Physical Examination Vital Signs: Vital Signs Temperature 98.7 F 04/12/20 14:00 Pulse Rate 84 04/12/20 14:00 Respiratory Rate 04/12/20 14:00 Blood Pressure 149/80 04/12/20 14:00 O2 Sat by Pulse Oximetry (%) 95 04/12/20 09:00 Constitutional: Yes: No Distress, Calm HENT: Yes: Atraumatic Neck: Yes: Supple Cardiovascular: Yes: Regular Rate and Rhythm Respiratory: Yes: Regular, CTA Bilaterally Gastrointestinal: Yes: Normal Bowel Sounds, Soft Extremities: No: Cyanosis Edema: No Assessment/Plan 79 year old woman with history of DM on insulin, seizure disorder, hypertension who presented to the ED with syncope and found to have VINCENT and now hypernatremia. 1. Acute kidney injury 2. Hypernatremia 3. Syncope 4. Hypertension 5. Seizure disorder Renal function improved. Change IVF to D5W. Can resume Losartan if renal function stable tomorrow. Cardiology and neurology follow up Trend renal function and electrolytes daily Casper Lemon DO
[2020-04-12] MEDS: ROSUVASTATIN CA 10 MG TABLET (FP) PO SCH (21:40)
[2020-04-12] MEDS: LATANOPROST 0.005% OPHTH SOLN 2.5ML BOTTLE OU SCH (21:41)
[2020-04-13] MEDS: INSULIN SLIDING SCALE (NOVOLOG) 1 VIAL SQ SCH ×3 (06:37→16:41)
[2020-04-13 06:55] LABS: BASO % 0.9 % (0-2.0); EOS % 5.4 % (0-4.5); HEMATOCRIT 34.8 % (32.4-45.2); HEMOGLOBIN 11.4 GM/dL (10.7-15.3); LYMPH % 37.3 % (8-40); MCH 27.5 pg (25.7-33.7); MCHC 32.8 g/dl (32.0-36.0); MEAN PLT VOLUME 8.7 fl (7.5-11.1); MONO % 6.1 % (3.8-10.2); NEUT % 50.3 % (42.8-82.8); PLATELET COUNT 151 K/MM3 (134-434); RBC 4.14 M/mm3 (3.60-5.2); RDW 16.4 % (11.6-15.6); WHITE BLOOD COUNT 6.4 K/mm3 (4.0-10.0)
[2020-04-13 07:17] LABS: ALBUMIN 2.7 g/dl (3.4-5.0); BILIRUBIN,TOTAL 0.6 mg/dL (0.2-1); BLOOD UREA NITROGEN 12.6 mg/dL (7-18); CALCIUM 8.4 mg/dL (8.5-10.1); CREATININE 0.9 mg/dL (0.55-1.3); POTASSIUM 3.5 mmol/L (3.5-5.1); TOT PROT 6.1 g/dl (6.4-8.2)
[2020-04-13] MEDS: ASPIRIN 81 MG CHEWABLE TABLETS PO SCH (09:29)
[2020-04-13] MEDS: MULTIVITAMINS (DAILY MVI) TABLET (FP) PO SCH (09:30)
[2020-04-13] MEDS: PANTOPRAZOLE 40 MG TABLET PO SCH (09:30)
[2020-04-13] MEDS: HEPARIN NA (PORCINE) 5,000 UNITS/ML 1ML VIAL SQ SCH ×2 (09:30→21:40)
[2020-04-13] MEDS: levETIRAcetam 500 MG TABLET (FP) PO SCH ×2 (09:30→21:40)
[2020-04-13] MEDS: amLODIPine BESYLATE 5 MG TABLET (FP) PO SCH (09:30)
--- NOTE | 2020-04-13 10:56 | PN ---
Progress Note (short form) - Note Progress Note: s: no cp sob palps dizzy Current Medications Generic Name Dose Route Start Last Admin Trade Name Jeremias PRN Reason Stop Dose Admin Amlodipine Besylate 5 mg 04/12/20 10:00 04/13/20 09:30 Norvasc - PO 5 mg DAILY MACIEL Administration Aspirin 81 mg 04/11/20 10:00 04/13/20 09:29 Asa - PO 81 mg DAILY MACIEL Administration Heparin Sodium (Porcine) 5,000 unit 04/11/20 22:00 04/13/20 09:30 Heparin - SQ 5,000 unit BID MACIEL Administration Insulin Aspart 1 vial 04/11/20 16:30 04/13/20 06:37 Novolog Vial Sliding Scale - SQ Not Given TIDAC [facility] Protocol Latanoprost 1 drop 04/11/20 22:00 04/12/20 21:41 Xalatan 0.005% Eye Drops - OU 1 drop HS MACIEL Administration Levetiracetam 500 mg 04/11/20 22:00 04/13/20 09:30 Keppra - PO 500 mg BID MACIEL Administration Multivitamins/Minerals/Vitamin C 1 tab 04/11/20 10:00 04/13/20 09:30 Tab-A-Vit - PO 1 tab DAILY MACIEL Administration Pantoprazole Sodium 40 mg 04/12/20 10:00 04/13/20 09:30 Protonix - PO 40 mg DAILY MACIEL Administration Rosuvastatin Calcium 10 mg 04/11/20 22:00 04/12/20 21:40 Crestor - PO 10 mg HS MACIEL Administration Vital Signs Period Temp Pulse Resp BP Sys/Molina Pulse Ox Last 24 Hr 97.8 F-99.0 F 59-85 20-20 143-151/59-92 95 Constitutional: Yes: No Distress, Calm Eyes: Yes: Conjunctiva Clear, EOM Intact HENT: Yes: Atraumatic, Normocephalic Neck: Yes: Supple, Trachea Midline Respiratory: Yes: CTA Bilaterally Gastrointestinal: Yes: Soft (nt) Cardiovascular: Yes: WNL JVD: No Carotid Bruit: No PMI: Non-Displaced Heart Sounds: Yes: S1, S2 (rrr, no m.r.g) Edema: No Peripheral Pulses WNL: Yes Neurological: Yes: Alert, Oriented CBC, BMP 04/13/20 06:26 04/13/20 06:26 NSR with TWI V2-V5 which are chronic and unchanged from 2019 Echo: Report Reviewed Stress Echo: Report Reviewed Ejection Fraction %: LVEF > or = 40 % Imaging - Results Chest X-ray: Report Reviewed (no acute path), Image Reviewed Cat Scan: Report Reviewed (no acute path) EKG: Image Reviewed Assessment/Plan Cardiac Data ekg: nsr. nl intervals, anterior/anterolateral twi. similar to priors. cxr: clear lungs echo 10/2017: nl lv/rv, no sig valve path Echo 12/2016: nl lv/rv size/fn. impaired relaxation. 1+ mac Lexiscan stress MPI 01/2017: nl mpi, nl lvef carotid u/s 12/2016: mod bilateral plaque, no stenosis. carotid u/s 08/2018: mild-mod bilateral plaque, no stenosis. tele: sr A/P: 79 yo with h/o HTN, HLD, IDDM,and GERD, and recurrent syncope s/p loop recorder placement p/w recurrent syncope vs seizure. Recurrent syncope vs seizure: Likely recurrent seizure - h/o recurrent syncope. Had neuro eval on prior admits for syncope --> thought to be vasovagal/neurocardiogenic. She was then sent for loop recorder (implanted 01/2017 at [facility], [employer]). - loop recorder interrogated when had syncope 10/2017--> no arrhythmia/bradycardia despite prolonged episode of LOC. - similar episode 12/2017-->loop recorder was again interrogated--> No events occurred during pt's syncope. - Given multiple syncope episodes with normal loop recorder findings it is apparent that there is no arrhythmia/bradycardia related etiology of her syncope. She was recently being treated for seizures. - Orthostatic vitals on prior admissions for similar have been negative - no signs acs. Prior echo and stress unremarkable. 08/2018 carotid u/s unremarkable. - Neuro following: f/u EEG -cardiac layne stable for dc HTN -stable on diovan HL: - statin dc tele
--- NOTE | 2020-04-13 10:59 | PN ---
Progress Note, Physician Chief Complaint: IN BED AWAKE +APPETITE DENIES CHEST PAIN OR SOB - Current Medication List Current Medications: Active Medications Amlodipine Besylate (Norvasc -) 5 mg PO DAILY [facility] Last Admin: 04/13/20 09:30 Dose: 5 mg Documented by: Aspirin (Asa -) 81 mg PO DAILY [facility] Last Admin: 04/13/20 09:29 Dose: 81 mg Documented by: Heparin Sodium (Porcine) (Heparin -) 5,000 unit SQ BID [facility] Last Admin: 04/13/20 09:30 Dose: 5,000 unit Documented by: Insulin Aspart (Novolog Vial Sliding Scale -) 1 vial SQ TIDAC [facility]; Protocol Last Admin: 04/13/20 06:37 Dose: Not Given Documented by: Latanoprost (Xalatan 0.005% Eye Drops -) 1 drop OU [facility] Last Admin: 04/12/20 21:41 Dose: 1 drop Documented by: Levetiracetam (Keppra -) 500 mg PO BID [facility] Last Admin: 04/13/20 09:30 Dose: 500 mg Documented by: Multivitamins/Minerals/Vitamin C (Tab-A-Vit -) 1 tab PO DAILY [facility] Last Admin: 04/13/20 09:30 Dose: 1 tab Documented by: Pantoprazole Sodium (Protonix -) 40 mg PO DAILY [facility] Last Admin: 04/13/20 09:30 Dose: 40 mg Documented by: Rosuvastatin Calcium (Crestor -) 10 mg PO HS [facility] Last Admin: 04/12/20 21:40 Dose: 10 mg Documented by: - Objective Vital Signs: Vital Signs Temperature 98.3 F 04/13/20 09:47 Pulse Rate 59 L 04/13/20 09:47 Respiratory Rate 20 04/13/20 09:47 Blood Pressure 147/59 L 04/13/20 09:47 O2 Sat by Pulse Oximetry (%) 95 04/12/20 21:00 Constitutional: Yes: Mild Distress Cardiovascular: Yes: Regular Rate and Rhythm Respiratory: Yes: CTA Bilaterally Gastrointestinal: Yes: Soft Genitourinary: Yes: Incontinence Musculoskeletal: Yes: Muscle Weakness Integumentary: Yes: WNL Neurological: Yes: Pre-Existing Deficit ...Motor Strength: LLE, RLE Psychiatric: Yes: Other Labs: CBC, BMP 04/13/20 06:26 04/13/20 06:26 INR, PTT INR 1.07 (0.83-1.09) 04/11/20 00:50 Problem List - Problems (1) VINCENT (acute kidney injury) Code(s): N17.9 - ACUTE KIDNEY FAILURE, UNSPECIFIED (2) Syncope and collapse Code(s): R55 - SYNCOPE AND COLLAPSE (3) Anemia Code(s): D64.9 - ANEMIA, UNSPECIFIED (4) Azotemia Code(s): R79.89 - OTHER SPECIFIED ABNORMAL FINDINGS OF BLOOD CHEMISTRY (5) Bradycardia Code(s): R00.1 - BRADYCARDIA, UNSPECIFIED (6) HLD (hyperlipidemia) Code(s): E78.5 - HYPERLIPIDEMIA, UNSPECIFIED (7) Hypertension Code(s): I10 - ESSENTIAL (PRIMARY) HYPERTENSION (8) IDDM (insulin dependent diabetes mellitus) Code(s): E11.9 - TYPE 2 DIABETES MELLITUS WITHOUT COMPLICATIONS; Z79.4 - INTERMEDIATE (CURRENT) USE OF INSULIN (9) Seizure Code(s): R56.9 - UNSPECIFIED CONVULSIONS Assessment/Plan NEUROLOGY WORKUP IN PROGRESS CT SCAN REVIEWED AWAITING EEG TEST DVT PROPHYLAXIS PT EVAL LABS REVIEWED SSI/BGM CHECKS DM STABLE ANEMIA STABLE NEURO AND SEIZURE CHECKS
--- NOTE | 2020-04-13 12:02 | PN ---
Progress Note (short form) - Note Progress Note: 79 year old female history of IDDM, Epilepsy, syncope She has beenpassed out and she is on keppra 500 mg po bid for possible seiuzre. She takes her medicaiton. There was no ocnfusion, tongue bite or incontinence. Patient is not sure how long she passed out. her ct head is normal. there is no focal neurological sypmptoms Patient is feeling better, no episode of passing out or seizure, Patient was seen on april 12 NEUROLOGICAL EXAMINATION Alert oriented x 3, eating breakfast , speech is normal, vss eomi, pupils reactive no face asymmetry, moving all ext sensation is normal ct head unremarkable eeg is pending Assessment/Plan Most likley syncopal episode, given she is not driving and not active physically, i discussed with patient and agree to continue keppra for same dose. Plan: cardiac work up for syncope - eeg can be done outpatient , and patient can be discharged home without - need to conitnue keppra at same dose discussed with patient , Patient agree with decision - seizure and fall precautiosn Thanking you so much Tonio Cárdenas MD
--- NOTE | 2020-04-13 12:43 | PN ---
Progress Note, Physician History of Present Illness: Seen and examined at the bedside offers no acute complains no sob, cp, fever or chills making urine appetite is good no dizziness . - Current Medication List Current Medications: Active Medications Amlodipine Besylate (Norvasc -) 5 mg PO DAILY [facility] Last Admin: 04/13/20 09:30 Dose: 5 mg Documented by: Aspirin (Asa -) 81 mg PO DAILY [facility] Last Admin: 04/13/20 09:29 Dose: 81 mg Documented by: Heparin Sodium (Porcine) (Heparin -) 5,000 unit SQ BID [facility] Last Admin: 04/13/20 09:30 Dose: 5,000 unit Documented by: Insulin Aspart (Novolog Vial Sliding Scale -) 1 vial SQ TIDAC [facility]; Protocol Last Admin: 04/13/20 11:41 Dose: Not Given Documented by: Latanoprost (Xalatan 0.005% Eye Drops -) 1 drop OU [facility] Last Admin: 04/12/20 21:41 Dose: 1 drop Documented by: Levetiracetam (Keppra -) 500 mg PO BID [facility] Last Admin: 04/13/20 09:30 Dose: 500 mg Documented by: Multivitamins/Minerals/Vitamin C (Tab-A-Vit -) 1 tab PO DAILY [facility] Last Admin: 04/13/20 09:30 Dose: 1 tab Documented by: Pantoprazole Sodium (Protonix -) 40 mg PO DAILY [facility] Last Admin: 04/13/20 09:30 Dose: 40 mg Documented by: Rosuvastatin Calcium (Crestor -) 10 mg PO [facility] Last Admin: 04/12/20 21:40 Dose: 10 mg Documented by: - Objective Vital Signs: Vital Signs Temperature 98.3 F 04/13/20 09:47 Pulse Rate 59 L 04/13/20 09:47 Respiratory Rate 20 04/13/20 09:47 Blood Pressure 147/59 L 04/13/20 09:47 O2 Sat by Pulse Oximetry (%) 95 04/13/20 09:00 Constitutional: Yes: No Distress HENT: Yes: Atraumatic Cardiovascular: Yes: Regular Rate and Rhythm Respiratory: Yes: Regular Gastrointestinal: Yes: Soft Edema: No Labs: CBC, BMP 04/13/20 06:26 04/13/20 06:26 INR, PTT INR 1.07 (0.83-1.09) 04/11/20 00:50 Assessment/Plan 79 year old woman with history of DM on insulin, seizure disorder, hypertension who presented to the ED with syncope and found to have VINCENT and now hypernatremia. 1. Acute kidney injury 2. Hypernatremia 3. Syncope 4. Hypertension 5. Seizure disorder Renal function improved. can discontinue IVF at this time encouraged oral hydration and solute intake Restart Valsartan 80mg daily today Cardiology and neurology follow up Trend renal function and electrolytes daily Casper Lemon DO
[2020-04-13] MEDS: VALSARTAN 80 MG TABLET (UD) PO SCH (16:36)
[2020-04-13] MEDS ORDERED: PT OWN MED DRAWER 7, Y5N ONE (20:55)
[2020-04-13] MEDS ORDERED: INSULIN (NOVOLOG) ASPART 100 UNITS/ML 10ML VIAL ONE (20:55)
[2020-04-13] MEDS ORDERED: ROSUVASTATIN CA 10 MG TABLET (FP) PO SCH (22:00)
[2020-04-13] MEDS ORDERED: LATANOPROST 0.005% OPHTH SOLN 2.5ML BOTTLE OU SCH (22:00)
[2020-04-14] MEDS: INSULIN SLIDING SCALE (NOVOLOG) 1 VIAL SQ SCH ×3 (06:07→16:41)
[2020-04-14 08:09] LABS: BASO % 0.7 % (0-2.0); EOS % 5.3 % (0-4.5); HEMATOCRIT 35.8 % (32.4-45.2); HEMOGLOBIN 11.8 GM/dL (10.7-15.3); MCH 27.6 pg (25.7-33.7); MCHC 32.9 g/dl (32.0-36.0); MEAN CELL VOLUME 83.6 fl (80-96); MEAN PLT VOLUME 8.8 fl (7.5-11.1); MONO % 7.4 % (3.8-10.2); NEUT % 55.6 % (42.8-82.8); PLATELET COUNT 164 K/MM3 (134-434); RBC 4.28 M/mm3 (3.60-5.2); WHITE BLOOD COUNT 5.8 K/mm3 (4.0-10.0)
[2020-04-14 08:29] LABS: ALBUMIN 2.8 g/dl (3.4-5.0); BILIRUBIN,TOTAL 0.6 mg/dL (0.2-1); CALCIUM 8.8 mg/dL (8.5-10.1); POTASSIUM 3.8 mmol/L (3.5-5.1); TOT PROT 6.2 g/dl (6.4-8.2)
[2020-04-14] MEDS ORDERED: PT OWN MED DRAWER 7, Y5N ONE (09:53)
[2020-04-14] MEDS: VALSARTAN 80 MG TABLET (UD) PO SCH (09:57)
[2020-04-14] MEDS: levETIRAcetam 500 MG TABLET (FP) PO SCH (09:57)
[2020-04-14] MEDS: HEPARIN NA (PORCINE) 5,000 UNITS/ML 1ML VIAL SQ SCH (09:58)
[2020-04-14] MEDS ORDERED: ASPIRIN 81 MG CHEWABLE TABLETS PO SCH (10:00)
[2020-04-14] MEDS ORDERED: PANTOPRAZOLE 40 MG TABLET PO SCH (10:00)
[2020-04-14] MEDS ORDERED: amLODIPine BESYLATE 5 MG TABLET (FP) PO SCH (10:00)
[2020-04-14] MEDS ORDERED: MULTIVITAMINS (DAILY MVI) TABLET (FP) PO SCH (10:00)
--- NOTE | 2020-04-14 10:17 | PN ---
Progress Note (short form) - Note Progress Note: 79 year old female history of IDDM, Epilepsy, syncope She has beenpassed out and she is on keppra 500 mg po bid for possible seiuzre. She takes her medicaiton. There was no ocnfusion, tongue bite or incontinence. Patient is not sure how long she passed out. her ct head is normal. there is no focal neurological sypmptoms no new complain, she is feeling better. NEUROLOGICAL EXAMINATION Alert oriented x 3, eating breakfast , speech is normal, vss eomi, pupils reactive no face asymmetry, moving all ext sensation is normal ct head unremarkable eeg is pending Assessment/Plan Most likley syncopal episode, given she is not driving and not active physically, i discussed with patient and agree to continue keppra for same dose. Plan: - eeg is pending - need to conitnue keppra at same dose discussed with patient , Patient agree with decision - seizure and fall precautiosn Thanking you so much Tonio Cárdenas MD
--- NOTE | 2020-04-14 10:43 | PN ---
Progress Note (short form) - Note Progress Note: s: no cp sob palps dizzy Current Medications Generic Name Dose Route Start Last Admin Trade Name Jeremias PRN Reason Stop Dose Admin Amlodipine Besylate 5 mg 04/14/20 10:00 04/14/20 09:57 Norvasc - PO 5 mg DAILY MACIEL Administration Aspirin 81 mg 04/14/20 10:00 04/14/20 09:57 Asa - PO 81 mg DAILY MACIEL Administration Heparin Sodium (Porcine) 5,000 unit 04/13/20 22:00 04/14/20 09:58 Heparin - SQ 5,000 unit BID MACIEL Administration Insulin Aspart 1 vial 04/13/20 16:30 04/14/20 06:07 Novolog Vial Sliding Scale - SQ Not Given TIDAC [facility] Protocol Latanoprost 1 drop 04/13/20 22:00 04/13/20 21:40 Xalatan 0.005% Eye Drops - OU 1 drop HS MACIEL Administration Levetiracetam 500 mg 04/13/20 22:00 04/14/20 09:57 Keppra - PO 500 mg BID MACIEL Administration Multivitamins/Minerals/Vitamin C 1 tab 04/14/20 10:00 04/14/20 09:58 Tab-A-Vit - PO 1 tab DAILY MACIEL Administration Pantoprazole Sodium 40 mg 04/14/20 10:00 04/14/20 09:58 Protonix - PO 40 mg DAILY MACIEL Administration Rosuvastatin Calcium 10 mg 04/13/20 22:00 04/13/20 21:40 Crestor - PO 10 mg HS MACIEL Administration Valsartan 80 mg 04/13/20 12:45 04/14/20 09:57 Diovan - PO 80 mg DAILY MACIEL Administration Vital Signs Period Temp Pulse Resp BP Sys/Molina Pulse Ox Last 24 Hr 98.3 F-99.4 F 77-86 20-20 127-155/72-91 95 Constitutional: Yes: No Distress, Calm Eyes: Yes: Conjunctiva Clear, EOM Intact HENT: Yes: Atraumatic, Normocephalic Neck: Yes: Supple, Trachea Midline Respiratory: Yes: CTA Bilaterally Gastrointestinal: Yes: Soft (nt) Cardiovascular: Yes: WNL JVD: No Heart Sounds: Yes: S1, S2 (rrr, no m.r.g) Edema: No Peripheral Pulses WNL: Yes Neurological: Yes: Alert, Oriented CBC, BMP 04/14/20 07:30 04/14/20 07:30 NSR with TWI V2-V5 which are chronic and unchanged from 2019 Echo: Report Reviewed Stress Echo: Report Reviewed Ejection Fraction %: LVEF > or = 40 % Imaging - Results Chest X-ray: Report Reviewed (no acute path), Image Reviewed Cat Scan: Report Reviewed (no acute path) EKG: Image Reviewed Assessment/Plan Cardiac Data ekg: nsr. nl intervals, anterior/anterolateral twi. similar to priors. cxr: clear lungs echo 10/2017: nl lv/rv, no sig valve path Echo 12/2016: nl lv/rv size/fn. impaired relaxation. 1+ mac Lexiscan stress MPI 01/2017: nl mpi, nl lvef carotid u/s 12/2016: mod bilateral plaque, no stenosis. carotid u/s 08/2018: mild-mod bilateral plaque, no stenosis. A/P: 79 yo with h/o HTN, HLD, IDDM,and GERD, and recurrent syncope s/p loop recorder placement p/w recurrent syncope vs seizure. Recurrent syncope vs seizure: Likely recurrent seizure - h/o recurrent syncope. Had neuro eval on prior admits for syncope --> thought to be vasovagal/neurocardiogenic. She was then sent for loop recorder (implanted 01/2017 at [place], [employer]). - loop recorder interrogated when had syncope 10/2017--> no arrhythmia/bradycardia despite prolonged episode of LOC. - similar episode 12/2017-->loop recorder was again interrogated--> No events occurred during pt's syncope. - Given multiple syncope episodes with normal loop recorder findings it is apparent that there is no arrhythmia/bradycardia related etiology of her syncope. She was recently being treated for seizures. - Orthostatic vitals on prior admissions for similar have been negative - no signs acs. Prior echo and stress unremarkable. 08/2018 carotid u/s unremarkable. - Neuro following: f/u EEG -cardiac layne stable for dc HTN -stable on diovan HL: - statin
--- NOTE | 2020-04-14 11:19 | PN ---
Progress Note, Physician Chief Complaint: Syncope History of Present Illness: NAD denies any N/V/dizziness at the moment Seen by neurology+ cardiology Awaiting EEG read U/S carotid-mild to moderate plaques without any evidence of hemodynamic instability CT head unremarkable CT cervical spine shows DJD Has had unexplained syncopal episodes in the past EKG: nsr. nl intervals, anterior/anterolateral twi. similar to priors. CXR: clear lungs ECHO: 10/2017: nl lv/rv, no sig valve path Lexiscan stress MPI 01/2017: nl mpi, nl lvef - Current Medication List Current Medications: Active Medications Amlodipine Besylate (Norvasc -) 5 mg PO DAILY [facility] Last Admin: 04/14/20 09:57 Dose: 5 mg Documented by: Aspirin (Asa -) 81 mg PO DAILY [facility] Last Admin: 04/14/20 09:57 Dose: 81 mg Documented by: Heparin Sodium (Porcine) (Heparin -) 5,000 unit SQ BID [facility] Last Admin: 04/14/20 09:58 Dose: 5,000 unit Documented by: Insulin Aspart (Novolog Vial Sliding Scale -) 1 vial SQ TIDAC [facility]; Protocol Last Admin: 04/14/20 06:07 Dose: Not Given Documented by: Latanoprost (Xalatan 0.005% Eye Drops -) 1 drop OU HS [facility] Last Admin: 04/13/20 21:40 Dose: 1 drop Documented by: Levetiracetam (Keppra -) 500 mg PO BID [facility] Last Admin: 04/14/20 09:57 Dose: 500 mg Documented by: Multivitamins/Minerals/Vitamin C (Tab-A-Vit -) 1 tab PO DAILY [facility] Last Admin: 04/14/20 09:58 Dose: 1 tab Documented by: Pantoprazole Sodium (Protonix -) 40 mg PO DAILY [facility] Last Admin: 04/14/20 09:58 Dose: 40 mg Documented by: Rosuvastatin Calcium (Crestor -) 10 mg PO HS [facility] Last Admin: 04/13/20 21:40 Dose: 10 mg Documented by: Valsartan (Diovan -) 80 mg PO DAILY [facility] Last Admin: 04/14/20 09:57 Dose: 80 mg Documented by: - Objective Vital Signs: Vital Signs Temperature 98.4 F 04/14/20 06:38 Pulse Rate 77 04/14/20 06:38 Respiratory Rate 20 /13/20 06:38 Blood Pressure 150/72 04/14/20 06:38 O2 Sat by Pulse Oximetry (%) 95 04/13/20 20:13 Constitutional: Yes: Well Nourished, No Distress, Calm Cardiovascular: Yes: Regular Rate and Rhythm Respiratory: Yes: Regular, CTA Bilaterally Gastrointestinal: Yes: Normal Bowel Sounds, Soft Genitourinary: Yes: WNL Musculoskeletal: Yes: Muscle Weakness Extremities: Yes: WNL Edema: No Peripheral Pulses WNL: Yes Neurological: Yes: Alert, Oriented Psychiatric: Yes: Alert, Oriented Labs: CBC, BMP 04/14/20 07:30 04/14/20 07:30 INR, PTT INR 1.07 (0.83-1.09) 04/11/20 00:50 Problem List - Problems (1) Diabetes Assessment/Plan: -A1c at 7.0 -BGM AC HS -ISS -Diabetic low sodium diet Problems reviewed: Yes Code(s): E11.9 - TYPE 2 DIABETES MELLITUS WITHOUT COMPLICATIONS (2) Syncope and collapse Assessment/Plan: -Cardiology consult appreciated -Neurology consult appreciated -Awaiting EEG read -Either way, as per neurology, pt can be discharged and f/u outpatient -U/S carotid-mild to moderate plaques without any evidence of hemodynamic instability -CT head unremarkable -CT cervical spine shows DJD -Has had unexplained syncopal episodes in the past -EKG: nsr. nl intervals, anterior/anterolateral twi. similar to priors. -CXR: clear lungs -ECHO: 10/2017: nl lv/rv, no sig valve path -Lexiscan stress MPI 01/2017: nl mpi, nl lvef -B12 was normal Problems reviewed: Yes Code(s): R55 - SYNCOPE AND COLLAPSE (3) Hypertension Assessment/Plan: -Hold Valsartan for now Cr at 1.6, with baseline cr at 1.1 -Low sodium diet -Can use amlodipine 5 mg po daily for now Problems reviewed: Yes Code(s): I10 - ESSENTIAL (PRIMARY) HYPERTENSION (4) Seizure Assessment/Plan: -EEG -Neurology consult appreciated Problems reviewed: Yes Code(s): R56.9 - UNSPECIFIED CONVULSIONS (5) VINCENT (acute kidney injury) Assessment/Plan: -Baseline Cr at 1.1 -Nephrology consult -Continue Valsartan -Amlodipine 5 mg po daily Problems reviewed: Yes Code(s): N17.9 - ACUTE KIDNEY FAILURE, UNSPECIFIED Assessment/Plan See problem list GI ppx DVT ppx Spoke to son Zay
--- NOTE | 2020-04-14 16:21 | PN ---
Progress Note, Physician Chief Complaint: acute kidney injury History of Present Illness: Seen and examined at the bedside offers no acute complains no sob, cp, fever or chills feels well Making urine - Current Medication List Current Medications: Active Medications Amlodipine Besylate (Norvasc -) 5 mg PO DAILY [facility] Last Admin: 04/14/20 09:57 Dose: 5 mg Documented by: Aspirin (Asa -) 81 mg PO DAILY [facility] Last Admin: 04/14/20 09:57 Dose: 81 mg Documented by: Heparin Sodium (Porcine) (Heparin -) 5,000 unit SQ BID [facility] Last Admin: 04/14/20 09:58 Dose: 5,000 unit Documented by: Insulin Aspart (Novolog Vial Sliding Scale -) 1 vial SQ TIDAC [facility]; Protocol Last Admin: 04/14/20 11:34 Dose: Not Given Documented by: Latanoprost (Xalatan 0.005% Eye Drops -) 1 drop OU [facility] Last Admin: 04/13/20 21:40 Dose: 1 drop Documented by: Levetiracetam (Keppra -) 500 mg PO BID [facility] Last Admin: 04/14/20 09:57 Dose: 500 mg Documented by: Multivitamins/Minerals/Vitamin C (Tab-A-Vit -) 1 tab PO DAILY [facility] Last Admin: 04/14/20 09:58 Dose: 1 tab Documented by: Pantoprazole Sodium (Protonix -) 40 mg PO DAILY [facility] Last Admin: 04/14/20 09:58 Dose: 40 mg Documented by: Rosuvastatin Calcium (Crestor -) 10 mg PO [facility] Last Admin: 04/13/20 21:40 Dose: 10 mg Documented by: Valsartan (Diovan -) 80 mg PO DAILY [facility] Last Admin: 04/14/20 09:57 Dose: 80 mg Documented by: - Objective Vital Signs: Vital Signs Temperature 99 F 04/14/20 14:00 Pulse Rate 77 04/14/20 14:00 Respiratory Rate 20 04/14/20 14:00 Blood Pressure 121/76 04/14/20 14:00 O2 Sat by Pulse Oximetry (%) 95 04/13/20 20:13 Constitutional: Yes: No Distress HENT: Yes: Atraumatic Neck: Yes: Supple Cardiovascular: Yes: Regular Rate and Rhythm Respiratory: Yes: Regular Gastrointestinal: Yes: Soft Edema: No Neurological: Yes: Alert Labs: CBC, BMP 04/14/20 07:30 04/14/20 07:30 INR, PTT INR 1.07 (0.83-1.09) 04/11/20 00:50 Assessment/Plan 79 year old woman with history of DM on insulin, seizure disorder, hypertension who presented to the ED with syncope and found to have VINCENT and now hypernatremia. 1. Acute kidney injury 2. Hypernatremia 3. Syncope 4. Hypertension 5. Seizure disorder function is improved and stable off of IV fluids encouraged oral hydration and solute intake the new valsartan 80 mg daily Blood pressure is improved Cardiology and neurology follow up we will follow-up as needed Casper Lemon DO
[2020-04-14 18:28] VITALS: BP 119/76; PULSE 97; TEMP 98.2
[2020-04-14] MEDS ORDERED: INSULIN (NOVOLOG) ASPART 100 UNITS/ML 10ML VIAL ONE (18:43)
== END 2020-04-14 20:00 | disposition home or self-care (01) | DRG 683 ==
LOC: JER 00:04 → JERBED 03:48 → J4W 17:14 → J8W 04-13 13:11 → UNDODISIN 04-14 17:09
PROVIDERS: ADMIT Internal Medicine; ATTEND Family Medicine
DX: N17.9 Acute kidney failure, unspecified (principal); E87.0 Hyperosmolality and hypernatremia; R55 Syncope and collapse; E11.9 Type 2 diabetes mellitus without complications; I10 Essential (primary) hypertension; E78.5 Hyperlipidemia, unspecified; G40.909 Epilepsy, unspecified, not intractable, without status epilepticus; K21.9 Gastro-esophageal reflux disease without esophagitis; E03.9 Hypothyroidism, unspecified; Z79.4 Long term (current) use of insulin
CPT/HCPCS: 36415; 70450-TC; 71045-TC-FY; 72125-TC; 80048; 80053; 80177; 81003; 82550; 82553; 82607; 82962; 83036; 83735; 84100; 84439; 84443; 84484; 85025; 85610; 85730; 87086; 93005; 93010; 93880-TC; 95816; 99285-25; J1644; U0003